=== PATIENT | female | born 1950 | race Caucasian/White ===

== ENCOUNTER 2022-12-16 14:01 | Observation (INO) ==
[2022-12-16] MEDS ORDERED: ACETAMINOPHEN 500 MG TAB PO STA (14:38)
[2022-12-16 15:17] LABS: Alanine Aminotransferase 14 U/L (7-52); Albumin Globulin Ratio 0.9 (0.9-2); Albumin Level 4.4 gm/dl (3.4-5.0); Alkaline Phosphatase 78 U/L (34-104); Anion Gap 10 (3-11); Aspartate Aminotransferase 20 U/L (13-39); Bilirubin,Total 1.3 mg/dl (0.2-1.0); Blood Urea Nitrogen 26 mg/dl (6-23); Carbon Dioxide 23 mmol/L (21-32); Chloride 99 mmol/L (98-107); Est GFR (African American) 44.5 ml/min; Est GFR (Non-African American) 38.4 ml/min; Globulin 4.7 gm/dl (2.5-4.0); Glucose 163 mg/dl (70-99(Fasting)); Potassium 3.7 mmol/L (3.5-5.1); Sodium 132 mmol/L (136-145); Total Protein 9.1 gm/dl (6.0-8.3)
--- NOTE | 2022-12-16 15:40 | Electrocardiogram Report ---
Test Reason : Blood Pressure : / mmHG Vent. Rate : 124 BPM Atrial Rate : 124 BPM P-R Int : 178 ms QRS Dur : 074 ms QT Int : 286 ms P-R-T Axes : 084 066 052 degrees QTc Int : 410 ms Sinus tachycardia Possible Left atrial enlargement Borderline ECG No previous ECGs available Confirmed by Alber Nieto ([id number]) on 12/16/2022 3:40:20 PM Referred By: Confirmed By:Alber Nieto
--- NOTE | 2022-12-16 15:55 | XRay Report ---
XR chest 1V not portable HISTORY: 72 years-old Female SOB acute shortness of breath COMPARISON: None TECHNIQUE: PA view of the chest FINDINGS: Left axillary surgical clips. Cardiac silhouette is normal in size. Mild nonspecific interstitial coa rsening with hazy ill-defined bibasilar densities. No pneumothorax, pleural effusion or overt pulmona ry edema. Mild sigmoid thoracolumbar scoliosis. Bones appear grossly intact. IMPRESSION: Interstitial coarsening with mild hazy ill-defined bibasilar densities. Correlate clinica lly to exclude a mild pneumonitis. ACT 112: Negative or not required by law. The above report was generated using voice recognition software. It may contain grammatical, syntax o r spelling errors. Electronically signed by: Maik Bess M.D. 12/16/2022 3:53 PM
[2022-12-16 15:56] LABS: Basophils # (auto) 0.05 K/uL (0.00-0.20); Basophils % (auto) 0.3 %; Eosinophils # (auto) 0.01 K/uL (0.00-0.50); Eosinophils % (auto) 0.1 %; Hematocrit (blood only) 38.6 % (37.0-47.0); Hemoglobin 13.1 g/dl (12.0-16.0); Immature Granulocytes # (auto) 0.05 K/uL (0.01-0.20); Immature Granulocytes % (auto) 0.3 %; Lymphocytes # (auto) 0.96 K/uL (1.20-3.40); Lymphocytes % (auto) 6.5 %; Mean Corpuscular Hemoglobin 31.8 pg (25.0-34.0); Mean Corpuscular Hgb Conc 33.9 g/dL (32.0-36.0); Mean Corpuscular Volume 93.7 fL (80.0-100.0); Mean Platelet Volume 9.2 fL (9.4-12.4); Monocytes # (auto) 0.69 K/uL (0.11-0.59); Monocytes % (auto) 4.7 %; Neutrophils # (auto) 12.92 K/uL (1.40-6.50); Neutrophils % (auto) 88.1 %; Platelet Count 321 K/uL (130-400); RDW Standard Deviation 44.6 fL (36.4-46.3); Red Blood Count 4.12 M/uL (4.20-5.40); White Blood Count 14.68 K/ul (4.8-10.8)
[2022-12-16 17:37] LABS: Adenovirus PCR Not Detected (NotDetected); Bordetella parapertussis PCR Not Detected (NotDetected); Bordetella pertussis PCR Not Detected (NotDetected); Chlamydia pneumoniae PCR Not Detected (NotDetected); Coronavirus 229E PCR Not Detected (NotDetected); Coronavirus CoV-2 (COVID19)PCR Not Detected (NotDetected); Coronavirus HKU1 PCR Not Detected (NotDetected); Coronavirus NL63 PCR Not Detected (NotDetected); Coronavirus OC43PCR Not Detected (NotDetected); Human Metapneumovirus PCR Not Detected (NotDetected); Influenza A PCR Not Detected (NotDetected); Influenza B PCR Not Detected (NotDetected); Mycoplasma pneumoniae PCR Not Detected (NotDetected); Parainfluenza Virus 1 PCR Not Detected (NotDetected); Parainfluenza Virus 2 PCR Not Detected (NotDetected); Parainfluenza Virus 3 PCR Not Detected (NotDetected); Respiratory Syncytial VirusPCR Not Detected (NotDetected); Rhinovirus/Enterovirus PCR Not Detected (NotDetected)
[2022-12-16] MEDS ORDERED: AZITHROMYCIN 500 MG in DEXTROSE 5% 250 ML IV ONE (17:44)
[2022-12-16] MEDS ORDERED: methylPREDNISolone 125 MG/2 ML VIAL IV STA (17:44)
[2022-12-16] MEDS ORDERED: cefTRIAXone SODIUM 2,000 MG/50 ML BAG IV STA (17:44)
[2022-12-16] MEDS ORDERED: SODIUM CHLORIDE 0.65% NA SOLN 45 ML (OCEAN) ONE (17:44)
[2022-12-16] MEDS ORDERED: SODIUM CHLORIDE 0.9% 2,000 ML IV ONE (17:44)
[2022-12-16] MEDS ORDERED: guaiFENesin 600 MG TABCR PO STA (17:44)
[2022-12-16] MEDS ORDERED: ALBUTEROL HFA 8 GM INHALER INH ONE (17:47)
[2022-12-16 18:05] LABS: Parainfluenza Virus 4 PCR DETECTED (NotDetected)
--- NOTE | 2022-12-16 18:21 | Emergency Department Note ---
Impression & Plan Pneumonia, Infection due to parainfluenza virus 4, SIRS (systemic inflammatory response syndrome) ED Provider Note NAME: CARLA LOU AGE: 72 SEX: F ARRIVES VIA: Walk-In INFORMANT: Patient ED PROVIDER(S): Aries Pichardo MD CHIEF COMPLAINT: Fever, shortness of breath, referred. PLAN: Disposition: Admit MEDICAL DECISION MAKING: The patient is a pleasant 72-year-old woman who presents emergency department via walk-in, company by her for evaluation of continued upper respiratory congestion and chest congestion over the past 2 weeks where she felt symptoms worsening with frequent "hot flashes" where she was seen in urgent care today found to be febrile and have low oxygen in the low 90s and was referred to the emergency department. She reports she had a negative home COVID-19 test today and also a second negative COVID-19 test at urgent care. She reports she has been unable to bring up any sputum. She denies any headache or sinus pressu re. She denies vomiting or diarrhea but does report having decreased appetite and loss of taste. On my evaluation the patient is uncomfortable, febrile 38.1, heart in the 130s and vital signs otherwise stable. O2 saturations in the mid 90s on room air. She appears clinically dry. She has scattered wheezes bilateral lung doe with normal respiratory effort. Abdomen is nontender. EKG without overt acute ischemia. Chest x-ray demonstrates faint bibasilar opacities suspicious for pneumonia given the clinical context. WBC 4.6 with neutrophil predominance though no left shift. Mild lymphopenia at 0.96 is present. H/H and platelets within normal limits. Chemistry without metabolic acidosis. Creatinine is mildly elevated at 1.3 with BUN elevated 26. LFTs without significant abnormality. Respiratory viral panel was performed and was positive for parainfluenza 4. However, given patient's leukocytosis and 2 weeks of symptoms that have been worsening suspicion for possible bacterial coinfection. Empiric treatment for pneumonia ordered with ceftriaxone and azithromycin at this time. 30cc/kg of IVF provided. Curb 65 moderate risk. Given the patient's worsening symptoms with poor oral intake she agrees with plan for admission for further management. Case was discussed with Dr. Antonio, [facility] hospitalist, who will evaluate the patient for admission. Triage Nursing notes reviewed and agree them. Prior/outside medical records reviewed Vital Signs: reviewed Differential diagnosis: Viral syndrome, otitis, pharyngitis, pneumonia, influenza, meningitis, urinary tract infection, sepsis, bacteremia, as well as other pathologies. ER treatment provided: See below. Diagnostics interpreted by me: ECG: Sinus tachycardia, 124 bpm, no ectopy, no overt ST impression or depression, QTC 410, QRS 74. Cardiac Monitoring: An order for continuous cardiac monitoring was placed and demonstrated Sinus tachycardia, 124 bpm, no ectopy. Laboratory studies: See below Imaging studies: See below Consultation(s): Dr. Antonio [facility] hospitalist HPI: The patient is a pleasant 72-year-old woman who presents emergency department via walk-in, company by her for evaluation of continued upper respiratory congestion and chest congestion over the past 2 weeks where she felt symptoms worsening with frequent "hot flashes" where she was seen in urgent care today found to be febrile and have low oxygen in the low 90s and was referred to the emergency department. She reports she had a negative home COVID-19 test today and also a second negative COVID-19 test at urgent care. She reports she has been unable to bring up any sputum. She denies any headache or sinus pressure. She denies vomiting or diarrhea but does report having decreased appetite and loss of taste. ROS: See above HPI for pertinent positives & negatives. A total of 10 systems reviewed and were otherwise negative. VITALS:See Below PHYSICAL EXAMINATION: GENERAL: Awake, alert, fatigued/uncomfortable-appearing, in no distress HENT: Normocephalic, atraumatic. Oropharynx with dry mucous membranes and otherwise unremarkable. EYES: Normal conjunctiva. Sclera non-icteric. NECK: Supple. No nuchal rigidity. FROM. No JVD. RESPIRATORY: Scattered wheeze of bilateral lung doe. CARDIAC: Tachycardic rate, normal rhythm. Extremities warm and well perfused. Pulses equal. ABDOMEN: Soft, non-distended. No tenderness to palpation. No rebound or guarding. No masses. RECTAL: Deferred. MUSCULOSKELETAL: Chest examination reveals no tenderness. The back is s ymmetrical on inspection without obvious abnormality. There is no CVA tenderness to palpation. No joint edema. LOWER EXTREMITIES: Calves are equal size bilaterally and non-tender. No edema. No discoloration. NEURO: Normal sensorium. No sensory or motor deficits noted. SKIN: No rash or jaundice noted. Aries Pichardo MD Past Med/Surg History Medical History Breast cancer CKD (chronic kidney disease) stage 3, GFR 30-59 ml/min HLD (hyperlipidemia) Hypertension Postablative hypothyroidism (Unknown) Surgical History H/O lumpectomy Family History Other Asthma Cancer Heart disease Social History Smoking Status: Never smoker Hx Alcohol Use: Yes Hx Substance Use: No Preferred Language: Citizen Of [place] Communication Ability: Effective Manager Fixed Income Required: No Beliefs That Will Affect Care: None Current Living Situation: Spouse Feels Safe at Home: Yes Safety Concerns: Feels Safe At This Time Assistive Devices: None Allergies Allergies Allergy/AdvReac Type Severity Reaction Status Date / Time Psvaqfv-YJP-YlR Reductase Allergy Unknown legs achy Verified 12/16/22 18:46 Inhibitor 1st Covid shot Allergy arm got Uncoded 12/16/22 18:50 hives/itchy for 10 days Steroid shot Allergy Flushed & Uncoded 12/16/22 18:50 hot flushes Home Meds Home Medications Medication Instructions Recorded Confirmed ezetimibe 10 mg tablet 10 mg PO DAILY 12/16/22 12/16/22 levothyroxine 75 mcg tablet 75 mcg PO QAM 12/16/22 12/16/22 (Synthroid) losartan 100 mg tablet 100 mg PO QAM 12/16/22 12/16/22 [id number]-swuwrmlb-rbplzr 1 tab PO DAILY 12/16/22 12/16/22 tablet (Multivitamin 50 Plus tablet) Results & Data (ED) Vital Signs Vital Signs - 24 hr 12/16/22 14:06 12/16/22 16:50 12/16/22 18:06 Temperature 38.1 C H Temperature Source Temporal Artery Scan Pulse Rate 131 H 104 H Pulse Rate [Apical] 89 Pulse Rate from SpO2 Sensor Pulse Rhythm [Apical] Regular Pulse Strength [Apical] Normal Respiratory Rate 20 20 Respiratory Effort / Characteristics Spontaneous Short of Breath Non-Labored Spontaneous Respiratory Depth Normal Normal Respiratory Pattern Regular Blood Pressure 145/77 H Blood Pressure [Left Arm] 129/68 Blood Pressure Mean 99 Blood Pressure Mean [Left Arm] 88 Blood Pressure Position [Left Arm] Sitting Pulse Oximetry 93 95 Oxygen Delivery Method Room Air Room Air Sepsis Recent Fever Within 48 Hours No Sepsis New/Unexplained Change in Mental Status N/A Sepsis Action Taken by Nursing No Action Required 12/16/22 19:13 Temperature Temperature Source Pulse Rate Pulse Rate [Apical] Pulse Rate from SpO2 Sensor 103 H Pulse Rhythm [Apical] Pulse Strength [Apical] Respiratory Rate Respiratory Effort / Characteristics Respiratory Depth Respiratory Pattern Blood Pressure Blood Pressure [Left Arm] Blood Pressure Mean Blood Pressure Mean [Left Arm] Blood Pressure Position [Left Arm] Pulse Oximetry 95 Oxygen Delivery Method Sepsis Recent Fever Within 48 Hours Sepsis New/Unexplained Change in Mental Status Sepsis Action Taken by Nursing Laboratory Data Attestation: I reviewed the patient's lab results. 12/16/22 14:39 12/16/22 14:39 Lab Results 12/16/22 12/16/22 12/16/22 Range/Units 14:39 14:39 14:39 WBC 14.68 H (4.8-10.8) K/ul RBC 4.12 L (4.20-5.40) M/uL Hgb 13.1 (12.0-16.0) g/dl Hct 38.6 (37.0-47.0) % MCV 93.7 (80.0-100.0) fL MCH 31.8 (25.0-34.0) pg MCHC 33.9 (32.0-36.0) g/dL RDW Std Deviation 44.6 (36.4-46.3) fL RDW Coeff of Lacie 13.0 (11.5-14.5) % Plt Count 321 (130-400) K/uL MPV 9.2 L (9.4-12.4) fL Immature Gran % (Auto) 0.3 % Neut % (Auto) 88.1 % Lymph % (Auto) 6.5 % [place] % (Auto) 4.7 % Eos % (Auto) 0.1 % Baso % (Auto) 0.3 % Neut # (Auto) 12.92 H (1.40-6.50) K/uL Lymph # (Auto) 0.96 L (1.20-3.40) K/uL [place] # (Auto) 0.69 H (0.11-0.59) K/uL Eos # (Auto) 0.01 (0.00-0.50) K/uL Baso # (Auto) 0.05 (0.00-0.20) K/uL Immature Gran # (Auto) 0.05 (0.01-0.20) K/uL PT Cancelled INR Cancelled APTT Cancelled PTT Ratio Cancelled Sodium 132 L (136-145) mmol/L Potassium 3.7 (3.5-5.1) mmol/L Chloride 99 (98-107) mmol/L Carbon Dioxide 23 (21-32) mmol/L Anion Gap 10 (3-11) BUN 26 H (6-23) mg/dl Creatinine 1.37 H (0.6-1.2) mg/dl Est GFR ( Amer) 44.5 ml/min Est GFR (Non-Af Amer) 38.4 ml/min BUN/Creatinine Ratio 19.0 (10-20) Glucose 163 H (70-99(Fasting)) mg/dl Lactate (0.4-2.0) mmol/L Calcium 10.0 (8.6-10.3) mg/dl Total Bilirubin 1.3 H (0.2-1.0) mg/dl AST 20 (13-39) U/L ALT 14 (7-52) U/L Alkaline Phosphatase 78 (34-104) U/L Total Protein 9.1 H (6.0-8.3) gm/dl Albumin 4.4 (3.4-5.0) gm/dl Globulin 4.7 H (2.5-4.0) gm/dl Albumin/Globulin Ratio 0.9 (0.9-2) Procalcitonin (0-0.5) ng/ml 12/16/22 12/16/22 12/16/22 Range/Units 14:40 18:50 18:50 WBC (4.8-10.8) K/ul RBC (4.20-5.40) M/uL Hgb (12.0-16.0) g/dl Hct (37.0-47.0) % MCV (80.0-100.0) fL MCH (25.0-34.0) pg MCHC (32.0-36.0) g/dL RDW Std Deviation (36.4-46.3) fL RDW Coeff of Lacie (11.5-14.5) % Plt Count (130-400) K/uL MPV (9.4-12.4) fL Immature Gran % (Auto) % Neut % (Auto) % Lymph % (Auto) % [place] % (Auto) % Eos % (Auto) % Baso % (Auto) % Neut # (Auto) (1.40-6.50) K/uL Lymph # (Auto) (1.20-3.40) K/uL [place] # (Auto) (0.11-0.59) K/uL Eos # (Auto) (0.00-0.50) K/uL Baso # (Auto) (0.00-0.20) K/uL Immature Gran # (Auto) (0.01-0.20) K/uL PT 12.6 H INR 1.2 H APTT 28.4 PTT Ratio 1.0 Sodium (136-145) mmol/L Potassium (3.5-5.1) mmol/L Chloride (98-107) mmol/L Carbon Dioxide (21-32) mmol/L Anion Gap (3-11) BUN (6-23) mg/dl Creatinine (0.6-1.2) mg/dl Est GFR ( Amer) ml/min Est GFR (Non-Af Amer) ml/min BUN/Creatinine Ratio (10-20) Glucose (70-99(Fasting)) mg/dl Lactate 1.5 (0.4-2.0) mmol/L Calcium (8.6-10.3) mg/dl Total Bilirubin (0.2-1.0) mg/dl AST (13-39) U/L ALT (7-52) U/L Alkaline Phosphatase (34-104) U/L Total Protein (6.0-8.3) gm/dl Albumin (3.4-5.0) gm/dl Globulin (2.5-4.0) gm/dl Albumin/Globulin Ratio (0.9-2) Procalcitonin 0.22 (0-0.5) ng/ml Administered Medications Heparin Sodium (Porcine) (Heparin Sod 5,000 Unit/0.5 Ml Vial) 5,000 units SQ Q8 MOHAN Stop: 01/15/23 21:59 Last Admin: 12/16/22 23:32 Dose: 5,000 units Documented By: MOHSEN Discontinued Medications Acetaminophen (Acetaminophen 500 Mg Tab) 1,000 mg PO NOW STA Stop: 12/16/22 14:39 Last Admin: 12/16/22 14:44 Dose: 1,000 mg Documented By: MICHEL Albuterol (Albuterol Hfa 8 Gm Inhaler) 2 puffs INH NOW ONE Stop: 12/16/22 17:48 Last Admin: 12/16/22 18:24 Dose: 2 puffs Documented By: MIKHAIL Guaifenesin (Guaifenesin 600 Mg Tabcr) 1,200 mg PO NOW STA Stop: 12/16/22 17:45 Last Admin: 12/16/22 18:24 Dose: 1,200 mg Documented By: MIKHAIL Guaifenesin/Dextromethorphan (Guaifenesin/Dextrom Syrup 200mg/20mg 10ml Udc) 10 ml PO NOW STA Stop: 12/16/22 19:23 Last Admin: 12/16/22 20:31 Dose: 10 ml Documented By: MICHEL Sodium Chloride (Nss) 2,000 mls @ 999 mls/hr IV .Q2H1M ONE Stop: 12/16/22 19:44 Last Infusion: 12/16/22 21:06 Dose: 0 mls/hr Documented By: Admin: 12/16/22 18:23 Dose: 999 mls/hr Documented By: MIKHAIL Ceftriaxone Sodium (Rocephin) 2,000 mg in 50 mls @ 100 mls/hr IV NOW STA Stop: 12/16/22 18:13 Last Infusion: 12/16/22 21:06 Dose: 0 mls/hr Documented By: Admin: 12/16/22 18:23 Dose: 100 mls/hr Documented By: MIKHAIL Azithromycin 500 mg/ Dextrose 255 mls @ 125 mls/hr IV ONE ONE Stop: 12/16/22 19:46 Last Infusion: 12/16/22 21:06 Dose: 0 mls/hr Documented By: Admin: 12/16/22 18:23 Dose: 125 mls/hr Documented By: MIKHAIL Methylprednisolone (Methylprednisolone 125 Mg/2 Ml Vial) 125 mg IV NOW STA Stop: 12/16/22 17:45 Last Admin: 10/12/23 18:24 Dose: 125 mg Documented By: MIKHAIL Sodium Chloride (Sodium Chloride 0.65% Na Soln 45 Ml ([place])) 2 sprays NA NOW ONE Stop: 12/16/22 17:45 Last Admin: 12/16/22 18:24 Dose: 2 sprays Documented By: MIKHAIL Imaging Data Radiologist's Impression: Chest X-Ray 12/16/22 14:14 XR chest 1V not portable HISTORY: 72 years-old Female SOB acute shortness of breath COMPARISON: None TECHNIQUE: PA view of the chest FINDINGS: Left axillary surgical clips. Cardiac silhouette is normal in size. Mild nonspecific interstitial coarsening with hazy ill-defined bibasilar densities. No pneumothorax, pleural effusion or overt pulmonary edema. Mild sigmoid thoracolumbar scoliosis. Bones appear grossly intact. IMPRESSION: Interstitial coarsening with mild hazy ill-defined bibasilar densities. Correlate clinically to exclude a mild pneumonitis. ACT 112: Negative or not required by law. The above report was generated using voice recognition software. It may contain grammatical, syntax or spelling errors. Electronically signed by: Maik Bess M.D. 12/16/2022 3:53 PM Discharge Plan Visit Data Chief Complaint: Illness Stated Complaint: DOC REF, LOW 02, DEHYDRATION ED Provider: Aries Pichardo Discharge Problem: Pneumonia, Infection due to parainfluenza virus 4, SIRS (systemic inflammatory response syndrome) Patient Disposition: Admitted As Inpatient Discharge Instructions Interventions: ED Discharge Assessment Last Done: 12/16/22 22:00
--- NOTE | 2022-12-16 18:30 | History & Physical Report ---
Date of Service December 16, 2022 Assessment & Plan (1) Sepsis: (2) Infection due to parainfluenza virus 4: (3) Pneumonia: (4) Postablative hypothyroidism: (5) Hypertension: (6) CKD (chronic kidney disease) stage 3, GFR 30-59 ml/min: (7) HLD (hyperlipidemia): Plan Ms. Jimenez is a 72 y/o female with HTN, HLD, Sjogren's syndrome, CKD III, prior breast cancer, melanoma, hypothyroidism who is admitted due to sepsis secondary to parainfluenza virus with concern for superimposed bacterial pneumonia. #Sepsis secondary to Parainfuenzae and ?superimposed bacterial pneumonia -Meets sepsis criteria based upon WBC, HR, RR, Temp and confirmed infection -Supportive treatment with IVF, Robitussin, Tylenol prn -Coverage for CAP with CTX and Azithro -Blood cultures pending, sputum culture ordered -Flutter valve #Hyponatremia Potentially related to poor po intake, given elevated BUN and recent illness Trend BMP in am after 2L bolus #Post-albative Hypothyroidism #Sjogren's disease -Continue Levothyroxine -Biotene and artificial tears prn #HTN -Continue home Losartan #CKDIII Borderline LUISANA, baseline 0.9-1.1 Trend BMP s/p 2L IVF in ED #HLD -continue zetia Bowel prn GI prn Lytes prn DVT heparin sq Dispo med/surg for management of pneumonia I spent a total of 60 minutes coordinating, documenting, and providing care for this patient excluding time spent in the performance of separately billed services. History of Present Illness Chief Complaint: SOB, Sinus Congestion Primary Care Provider: Radha Chaudhry MD Ms. Jimenez is a 72 y/o female with HTN, HLD, Sjogren's syndrome, CKD III, prior breast cancer, melanoma, hypothyroidism who is admitted due to sepsis secondary to parainfluenza virus with concern for superimposed bacterial pneumonia. Patient states she felt like she was mildly sick for about two weeks, but over 4-5 days noted it progressively worsened. She endorses subjective fevers with notable sputum production over the last week. Patient denies any other concerns like bowel changes, urinary changes, nausea, or vomiting. In the ED, patient was normotensive, with temp to 38.1 and sinus tachycardia to 100s.Saturating well on room air. Labs with leukocytosis to 14 and +parainfluenza, as well as ?procal of 0.22. CXR with increased interstitial markings. Started on CTX and azithro. s/p 2L NS Patient to be admitted for severe pneumonia and close monitoring. Allergies Allergy/AdvReac Type Severity Reaction Status Date / Time Eyvhynx-EOY-NyL Reductase Allergy Unknown legs achy Verified 12/16/22 18:46 Inhibitor 1st Covid shot Allergy arm got Uncoded 12/16/22 18:50 hives/itchy for 10 days Steroid shot Allergy Flushed & Uncoded 12/16/22 18:50 hot flushes Home Medications Medication Instructions Recorded Confirmed Type ezetimibe 10 mg tablet 10 mg PO DAILY 12/16/22 12/16/22 History levothyroxine 75 mcg tablet 75 mcg PO QAM 12/16/22 12/16/22 History (Synthroid) losartan 100 mg tablet 100 mg PO QAM 12/16/22 12/16/22 History vjpvlggglmjk-gyfukyis-nufsta 1 tab PO DAILY 12/16/22 12/16/22 History tablet (Multivitamin 50 Plus tablet) Past Med/Surg History Medical History (Updated 12/16/22 @ 20:00 by Vida Antonio MD) Breast cancer CKD (chronic kidney disease) stage 3, GFR 30-59 ml/min HLD (hyperlipidemia) Hypertension Postablative hypothyroidism (Unknown) Surgical History (Updated 12/16/22 @ 19:54 by Vida Antonio MD) H/O lumpectomy Family History (Updated 12/16/22 @ 19:55 by Vida Antonio MD) Other Asthma Cancer Heart disease Social History Smoking Status: Never smoker Preferred Language: Romanian Feels Safe at Home: Yes Review of Systems Review of Systems: All systems reviewed & are unremarkable except as noted in Subjective Physical Exam Eyes: left exotropic eye ENMT: sinus congestion Respiratory: crackles, wheezing Cardiovascular: tachycardia Gastrointestinal (Abdomen): soft NTND Results & Data Results & Data Vital Signs (Past 12 Hours) Vital Signs Temp Pulse Pulse Resp BP BP Pulse Ox 12/16/22 18:06 104 H 12/16/22 16:50 89 20 129/68 95 12/16/22 14:06 38.1 C H 131 H 20 145/77 H 93 O2 Del Method 12/16/22 18:06 12/16/22 16:50 Room Air 12/16/22 14:06 Room Air Laboratory Results Short CBC 12/16/22 Range/Units 14:39 WBC 14.68 H (4.8-10.8) K/ul Hgb 13.1 (12.0-16.0) g/dl Hct 38.6 (37.0-47.0) % Plt Count 321 (130-400) K/uL BMP 12/16/22 14:39 Sodium 132 L Potassium 3.7 Chloride 99 Carbon Dioxide 23 BUN 26 H Creatinine 1.37 H Glucose 163 H Calcium 10.0 Liver Function 12/16/22 Range/Units 14:39 Total Bilirubin 1.3 H (0.2-1.0) mg/dl AST 20 (13-39) U/L ALT 14 (7-52) U/L Alkaline Phosphatase 78 (34-104) U/L Albumin 4.4 (3.4-5.0) gm/dl Diagnostic Findings CXR reveiwed with coarse interstital markings, no clear consolidations Medications Administered Home Medications Medication Instructions Recorded Confirmed Last Taken ezetimibe 10 mg tablet 10 mg PO DAILY 12/16/22 12/16/22 12/16/22 09:00 levothyroxine 75 mcg tablet 75 mcg PO QAM 12/16/22 12/16/22 12/16/22 07:30 (Synthroid) losartan 100 mg tablet 100 mg PO QAM 12/16/22 12/16/22 12/16/22 09:00 sytjtpubcskq-unskhtox-ltntxn 1 tab PO DAILY 12/16/22 12/16/22 Unknown tablet (Multivitamin 50 Plus tablet) Active Medications Generic Name Dose Route Start Last Admin Trade Name Janine PRN Reason Stop Dose Admin Sodium Chloride 2,000 mls @ 999 mls/hr 12/16/22 17:44 12/16/22 18:23 Nss IV 12/16/22 19:44 999 mls/hr .Q2H1M ONE Administration Azithromycin 500 mg/ Dextrose 255 mls @ 125 mls/hr 12/16/22 17:44 12/16/22 18:23 IV 12/16/22 19:46 125 mls/hr ONE ONE Administration
[2022-12-16] MEDS ORDERED: guaiFENesin/DEXTROM SYRUP 200MG/20MG 10ML UDC PO STA (19:22)
[2022-12-16] MEDS ORDERED: guaiFENesin/DEXTROM SYRUP 200MG/20MG 10ML UDC PO PRN (19:22)
[2022-12-16 19:37] LABS: INR 1.2 (0.9-1.1); Partial Thromboplastin Time 28.4 Seconds (21.0-31.0); Prothrombin Time 12.6 Seconds (9.0-12.0)
[2022-12-16] MEDS ORDERED: ARTIFICIAL TEARS OPB PRN (19:43)
[2022-12-16 20:07] LABS: Appearance Urine Cloudy (Clear); Bacteria Urine Automated 2+ (Negative); Bilirubin Urine Negative (Negative); Blood Urine Trace (Negative); Color Urine Yellow; Epithelial Cell Urine Auto >30 /lpf (0-5); Glucose Urine UA Negative (Negative); Ketones Urine Negative (Negative); Leukocyte Esterase Urine 2+ (Negative); Nitrite Urine Positive (Negative); Protein Urine 1+ (Negative); RBC Urine Automated 0-4 /hpf (0-4); Specific Gravity Urine 1.009 (1.000-1.030); Urobilinogen Urine Negative (Negative); WBC Urine Automated >30 /hpf (0-5); pH Urine 5.5 (4.5-7.5)
[2022-12-16] MEDS ORDERED: ACETAMINOPHEN 325 MG TAB PO PRN (21:12)
[2022-12-16] MEDS: HEPARIN SOD 5,000 UNIT/0.5 ML VIAL SQ SCH (23:32)
[2022-12-17] MEDS: HEPARIN SOD 5,000 UNIT/0.5 ML VIAL SQ SCH ×2 (05:41→13:50)
[2022-12-17] MEDS ORDERED: LEVOTHYROXINE SODIUM 75 MCG TABLET PO SCH (06:30)
[2022-12-17] MEDS ORDERED: CEROVITE ADV FORMULA TAB PO SCH (09:00)
[2022-12-17] MEDS ORDERED: LOSARTAN POTASSIUM 50 MG TAB PO SCH (09:00)
[2022-12-17] MEDS ORDERED: EZETIMIBE 10 MG TAB PO SCH (09:00)
[2022-12-17 09:02] LABS: Hematocrit (blood only) 33.5 % (37.0-47.0); Hemoglobin 11.2 g/dl (12.0-16.0); Mean Corpuscular Hemoglobin 30.9 pg (25.0-34.0); Mean Corpuscular Hgb Conc 33.4 g/dL (32.0-36.0); Mean Corpuscular Volume 92.5 fL (80.0-100.0); Mean Platelet Volume 9.6 fL (9.4-12.4); Platelet Count 290 K/uL (130-400); RDW Standard Deviation 43.8 fL (36.4-46.3); Red Blood Count 3.62 M/uL (4.20-5.40); White Blood Count 11.09 K/ul (4.8-10.8)
[2022-12-17 09:43] LABS: BUN Creatinine Ratio 21.2 (10-20); Calcium 9.2 mg/dl (8.6-10.3); Creatinine Clr Calc Pharmacy 41.8 ml/min; Est GFR (Non-African American) 56.9 ml/min; Magnesium 1.8 mg/dl (1.7-2.4); Phosphorus 2.9 mg/dl (2.5-4.9); Potassium 3.9 mmol/L (3.5-5.1)
[2022-12-17] MEDS ORDERED: AZITHROMYCIN 250 MG TAB PO SCH (12:00)
--- NOTE | 2022-12-17 14:19 | Discharge Summary ---
Date of Service December 17, 2022 Admission HPI Per Admitting Provider Ms. Jimenez is a 72 y/o female with HTN, HLD, Sjogren's syndrome, CKD III, prior breast cancer, melanoma, hypothyroidism who is admitted due to sepsis secondary to parainfluenza virus with concern for superimposed bacterial pneumonia. Patient states she felt like she was mildly sick for about two weeks, but over 4-5 days noted it progressively worsened. She endorses subjective fevers with notable sputum production over the last week. Patient denies any other concerns like bowel changes, urinary changes, nausea, or vomiting. In the ED, patient was normotensive, with temp to 38.1 and sinus tachycardia to 100s.Saturating well on room air. Labs with leukocytosis to 14 and +parainfluenza, as well as ?procal of 0.22. CXR with increased interstitial markings. Started on CTX and azithro. s/p 2L NS Patient to be admitted for severe pneumonia and close monitoring. Admission Exam Per Admitting Provider Eyes: left exotropic eye ENMT: sinus congestion Respiratory: crackles, wheezing Cardiovascular: tachycardia Gastrointestinal (Abdomen): soft NTND Principal Diagnosis Parainfluenza infection Pneumonia Discharge Exam Constitutional: WD/WN, vitals as above, NAD, sitting up in bed, pleasant, conversing easily Respiratory: normal respiratory effort, lungs clear to auscultation, no wheeze, rales, rhonchi. Normal insp/exp effort, no accessory muscle use Cardiovascular: RRR, no murmur, no edema Vessels: no JVD or carotid bruit Chest: normal inspection of chest Abdomen: normal bowel sounds, soft, nontender, no hepatosplenomegaly Musculoskeletal: no cyanosis or clubbing, extremities motor strength 5/5 Skin: no rashes, warm and dry normal turgor Neurologic: PERRL, EOMI, accommodation nl, no face palsy, no dysarthria CN's II- XI intact bilaterally and moves all extremities Psychiatric: A+Ox3, euthymic affect Discharge Data Allergies Allergy/AdvReac Type Severity Reaction Status Date / Time Mukqjzp-NDI-GeL Reductase Allergy Unknown legs achy Verified 12/16/22 18:46 Inhibitor 1st Covid shot Allergy arm got Uncoded 12/16/22 18:50 hives/itchy for 10 days Steroid shot Allergy Flushed & Uncoded 12/16/22 18:50 hot flushes Consultations 12/16/22 18:21 ED Decision to Admit Stat Hospital Course (1) Sepsis: (2) Infection due to parainfluenza virus 4: (3) Pneumonia: (4) Postablative hypothyroidism: (5) Hypertension: (6) CKD (chronic kidney disease) stage 3, GFR 30-59 ml/min: (7) HLD (hyperlipidemia): Plan Ms. Jimenez is a 72 y/o female with HTN, HLD, Sjogren's syndrome, CKD III, prior breast cancer, melanoma, hypothyroidism who is admitted due to sepsis secondary to parainfluenza virus with concern for superimposed bacterial pneumonia. On presentation, patient was found to have elevated WBC count, febrile to Tmax of 38.1 C. Chest x-ray suggestive of bibasilar infiltrates Patient was started on ceftriaxone and azithromycin; admitted to medical floor for further management. Patient reported improvement in the symptoms during the hospitalization. She remained in room air. She was discharged home on cefdinir for 5 days and azithromycin for 4 more days. Patient to follow-up with PCP after discharge. Please note the above document was generated using voice recognition software. It may contain grammatical, syntax or spelling errors. Any formal questions or concerns about the content, text or information contained within the body of this dictation should be directly addressed to the provider for clarification Total Time Total Time Spent Total Time Spent (In Minutes): 45 Total Time Includes: Examination of the Patient, Discharge Planning, Medication Reconciliation, Communication With Other Providers and Other Discharge Plan Discharge Items Patient Disposition: Home - Self-Care Reason For Visit: PNEUMONIA Discharge Diagnosis: Parainfluenza infection Pneumonia Activity: Resume your previous activity Non-emergency contact: Primary Care Provider Call non-emergency contact if: you have any medication questions Follow-up/Referrals: Rdaha Chaudhry MD [Primary Care Provider] - Diet: Regular Addtl Attending Provider Instructions: You were admitted to the hospital due to parainfluenza virus infection. It is a common virus which can cause upper respiratory tract illness and also result in superimposed bacterial pneumonia. Chest x-ray was done during the hospitalization which showed infiltrate suggestive of mild pneumonia. You were treated with IV antibiotics during the hospitalization. You are prescribed following antibiotics at discharge to complete the antibiotic course: 1) Cefdinir 300 mg twice a day for 5 days 2) Azithromycin 250 mg for 4 days You were also prescribed cough syrup to help with your symptoms An appointment will be set up with your primary care doctor for sometime next week. Pending Studies at Discharge: No Stand-Alone Forms: My [facility], Smoking Cessation Medications and DC Order Prescriptions: New azithromycin 250 mg Tablet 250 mg PO QAM 4 Days Qty: 4 0RF Robitussin Cough-Chest Venkat DM 5-100 mg/5 mL Liquid 10 ml PO Q6H PRN (Reason: cough) Qty: 237 0RF cefdinir 300 mg capsule 300 mg PO BID 5 Days Qty: 10 0RF Continued levothyroxine [Synthroid] 75 mcg tablet 75 mcg PO QAM losartan 100 mg tablet 100 mg PO QAM ezetimibe 10 mg tablet 10 mg PO DAILY Multivitamin 50 Plus Tablet 1 tab PO DAILY Discharge Orders: Discharge Order (Routine); Ordered 12/17/22 Ordered By: Ajith Lugo Admission Data Admit Date/Time: 12/16/22 19:26 Attending Provider: Ajith Lugo Admit Provider: Vida Antonio Primary Care Provider: Radha Chaudhry Other Providers: Vida Antonio
[2022-12-17] MEDS ORDERED: cefTRIAXone SODIUM 2,000 MG in DEXTROSE 5 % MINI-B 50 ML IV SCH (18:00)
== END 2022-12-17 15:28 | disposition home or self-care (01) | DRG 871 ==
LOC: ED 14:01 → SUATTDRO 19:26 → EDINP 19:26 → INTOOBSV 19:26 → 3W 22:00

== ENCOUNTER 2024-01-09 13:57 | Observation (INO) ==
[2024-01-09 14:24] LABS: Basophils # (auto) 0.02 K/uL (0.00-0.20); Basophils % (auto) 0.3 %; Eosinophils # (auto) 0.01 K/uL (0.00-0.50); Eosinophils % (auto) 0.2 %; Hematocrit (blood only) 38.6 % (37.0-47.0); Hemoglobin 12.6 g/dl (12.0-16.0); Immature Granulocytes # (auto) 0.01 K/uL (0.01-0.20); Immature Granulocytes % (auto) 0.2 %; Lymphocytes # (auto) 1.03 K/uL (1.20-3.40); Lymphocytes % (auto) 17.5 %; Mean Corpuscular Hgb Conc 32.6 g/dL (32.0-36.0); Mean Corpuscular Volume 95.1 fL (80.0-100.0); Mean Platelet Volume 9.7 fL (9.4-12.4); Monocytes # (auto) 0.13 K/uL (0.11-0.59); Monocytes % (auto) 2.2 %; Neutrophils % (auto) 79.6 %; Platelet Count 199 K/uL (130-400); RDW Coefficient of Variation 14.4 % (11.5-14.5); RDW Standard Deviation 50.6 fL (36.4-46.3); Red Blood Count 4.06 M/uL (4.20-5.40)
[2024-01-09 14:42] LABS: Alanine Aminotransferase 32 U/L (7-52); Albumin Globulin Ratio 0.8 (0.9-2); Albumin Level 4.1 gm/dl (3.4-5.0); Alkaline Phosphatase 98 U/L (34-104); Anion Gap 9 (3-11); Aspartate Aminotransferase 139 U/L (13-39); BUN Creatinine Ratio 22.6 (10-20); Bilirubin,Total 1.5 mg/dl (0.2-1.0); Blood Urea Nitrogen 26 mg/dl (6-23); Calcium 9.8 mg/dl (8.6-10.3); Carbon Dioxide 24 mmol/L (21-32); Chloride 102 mmol/L (98-107); Glucose 155 mg/dl (70-99(Fasting)); Lipase 37 U/L (11-82); Sodium 135 mmol/L (136-145); Total Protein 9.1 gm/dl (6.0-8.3)
--- NOTE | 2024-01-09 14:54 | Emergency Department Note ---
Impression & Plan Abdominal pain, Elevated lactic acid level ED Provider Note HISTORY OF PRESENT ILLNESS: Patient is a 73-year-old female presenting with abdominal pain. Patient reports she developed sudden onset of lower quadrant abdominal pain at 11 AM today. Reports the pain is sharp and constant. Locates the pain around her umbilicus and states it radiates into the bilateral lower quadrants and around into her bilateral lower back. Denies any vomiting but does report she was nauseous. Denies any history of abdominal surgeries. Denies any chest pain or shortness of breath. Denies any measured fevers at home. She does report dysuria that started this morning but denies any hematuria. ROS: as above PHYSICAL EXAM: Constitutional: Patient appears in no acute distress. HENT: Head: Normocephalic and atraumatic. Eyes: EOMI, PERRL Mouth/Throat: Mucous membranes moist. Neck: Trachea midline. Neck supple. Cardiovascular: RRR, No murmurs, rubs or gallops. Intact distal pulses. Pulmonary/Chest: No respiratory distress. Breath sounds clear and equal bilaterally. No wheezes or rales. Abdominal: Abdomen soft, no tenderness, rebound or guarding. Generalized TTP Musculoskeletal: No edema, tenderness or deformity noted. Skin: Warm and dry. No rash, erythema, pallor or cyanosis Psychiatric: Appropriate mood and affect for situation. Neurological: Alert and keenly responsive. CN II-XII grossly intact, moving all extremities equally and fully. MDM: - Vitals signs showed hypertension and tachycardia. - History obtained via patient. History as above. - Chronic conditions affecting care: HTN; HLD; Sjogren's syndrome; CKD; prior breast cancer; hypothyroidism - Differential diagnoses include, but are not limited to: cholecystitis; appendicitis; diverticulitis; ischemic colitis; small bowel obstruction - Order placed for continuous cardiac monitoring. At this time, monitor showed rate of 83 bpm with normal sinus rhythm, per my interpretation. - External medical records reviewed. Discharge summary dated 12/17/2022 reviewed. Patient admitted at that time with pneumonia secondary to parainfluenza infection - Laboratory workup interpreted by myself showed normal WBC; stable electrolytes; elevated AST (139); elevated total bilirubin (1.5); normal lipase; elevated lactate (4.9) - Patient reports contrast dye allergy. Given 40 mg IV solumedrol and 50 mg IV benadryl as pretreatment. - CT abdomen/pelvis negative for bowel obstruction and showed a normal appendix. No wall thickening multiple. Small bowel with wall thickening and adjacent mesenteric concerning for possible gastroenteritis. Noted to have periportal edema and a small amount of fluid within the pelvis. Also noted to have a left adnexal cyst and a right lower lobe pulmonary nodule. - Patient given 1g IV tylenol and 1L NS. - Repeat lactate still elevated, but improved, to 3.2. Given 500 cc more of normal saline. - Discussed case with surgeon consumer studies professor, Dr. Pope, given CT imaging findings of thickening and mesenteric edema concerning for potential ischemic colitis. He came to evaluate the patient and recommended admission to medicine for trending of lactate and repeat assessment. Does not think patient has ischemic colitis, but recommends close monitoring. Patient feels improved after IV fluids. - Discussion was had with spring encaser about patient's case and need for admission - Hospitalist consulted for admission - [facility] ASSESSMENT AND PLAN: Diagnosis: abdominal pain; elevated lactic acid level Plan: admit Past Med/Surg History Problem List (Updated 01/09/24 @ 18:54 by Justina Verdugo MD) Elevated lactic acid level (Acute) Abdominal pain (Acute) Parkinson disease CKD (chronic kidney disease) stage 3, GFR 30-59 ml/min HLD (hyperlipidemia) Hypertension Medical History (Updated 01/09/24 @ 18:54 by Justina Verdugo MD) History of melanoma Osteoarthritis Sjogren syndrome History of Graves' disease SIRS (systemic inflammatory response syndrome) Breast cancer Postablative hypothyroidism (Unknown) Surgical History (Updated 01/09/24 @ 17:30 by Faith Gore PA-C) H/O melanoma excision Hx of blepharoplasty H/O lumpectomy Family History Other Asthma Cancer Heart disease Social History Smoking Status: Never smoker Hx Alcohol Use: Yes Hx Substance Use: No Preferred Language: Icelandic Communication Ability: Effective [employer]isher Required: No Beliefs That Will Affect Care: None Current Living Situation: Spouse Feels Safe at Home: Yes Assistive Devices: None Allergies Allergies Allergy/AdvReac Type Severity Reaction Status Date / Time Mxmvasg-ODR-EdI Reductase Allergy Unknown legs achy Verified 12/16/22 18:46 Inhibitor Iodinated Contrast Media AdvReac Mild Rash Verified 01/09/24 14:39 1st Covid shot Allergy arm got Uncoded 12/16/22 18:50 hives/itchy for 10 days Steroid shot Allergy Flushed & Uncoded 12/16/22 18:50 hot flushes Home Meds Home Medications Medication Instructions Recorded Confirmed ezetimibe 10 mg tablet 10 mg PO DAILY 12/16/22 01/09/24 levothyroxine 75 mcg tablet 75 mcg PO QAM 12/16/22 01/09/24 (Synthroid) losartan 100 mg tablet 100 mg PO QAM 12/16/22 01/09/24 kcyqlbvuaoto-asnydixv-uoidmb 1 tab PO DAILY 12/16/22 01/09/24 tablet (Multivitamin 50 Plus tablet) carbidopa 25 mg-levodopa 100 mg 1 tab PO TID 01/09/24 01/09/24 tablet Results & Data (ED) Vital Signs Vital Signs - 24 hr 01/09/24 14:00 01/09/24 14:26 01/09/24 14:29 Temperature 36.4 C L 36.4 C L Temperature Source Temporal Artery Scan Oral Pulse Rate 97 H 93 H Pulse Rate [Apical] 99 H Pulse Rhythm Regular Pulse Strength Normal Respiratory Rate 20 20 Respiratory Effort / Characteristics Non-Labored Spontaneous Respiratory Depth Normal Blood Pressure 153/82 H Blood Pressure [Left Arm] 113/95 Blood Pressure Mean 105 Blood Pressure Mean [Left Arm] 101 Blood Pressure Position Sitting Pulse Oximetry 98 95 Oxygen Delivery Method Room Air Room Air Sepsis Recent Fever Within 48 Hours No Sepsis New/Unexplained Change in Mental Status N/A Sepsis Action Taken by Nursing No Action Required 01/09/24 16:00 01/09/24 18:24 Temperature Temperature Source Pulse Rate 83 Pulse Rate [Apical] 89 Pulse Rhythm Pulse Strength Respiratory Rate 20 Respiratory Effort / Characteristics Non-Labored Spontaneous Respiratory Depth Normal Blood Pressure Blood Pressure [Left Arm] 129/73 Blood Pressure Mean Blood Pressure Mean [Left Arm] 91 Blood Pressure Position Pulse Oximetry 97 Oxygen Delivery Method Room Air Sepsis Recent Fever Within 48 Hours Sepsis New/Unexplained Change in Mental Status Sepsis Action Taken by Nursing Laboratory Data 01/09/24 14:10 01/09/24 14:10 Lab Results 01/09/24 01/09/2424 Range/Units 14:10 14:31 16:24 WBC 5.90 (4.8-10.8) K/ul RBC 4.06 L (4.20-5.40) M/uL Hgb 12.6 (12.0-16.0) g/dl Hct 38.6 (37.0-47.0) % MCV 95.1 (80.0-100.0) fL MCH 31.0 (25.0-34.0) pg MCHC 32.6 (32.0-36.0) g/dL RDW Std Deviation 50.6 H (36.4-46.3) fL RDW Coeff of Lacie 14.4 (11.5-14.5) % Plt Count 199 (130-400) K/uL MPV 9.7 (9.4-12.4) fL Immature Gran % (Auto) 0.2 % Neut % (Auto) 79.6 % Lymph % (Auto) 17.5 % Howard % (Auto) 2.2 % Eos % (Auto) 0.2 % Baso % (Auto) 0.3 % Neut # (Auto) 4.70 (1.40-6.50) K/uL Lymph # (Auto) 1.03 L (1.20-3.40) K/uL Howard # (Auto) 0.13 (0.11-0.59) K/uL Eos # (Auto) 0.01 (0.00-0.50) K/uL Baso # (Auto) 0.02 (0.00-0.20) K/uL Immature Gran # (Auto) 0.01 (0.01-0.20) K/uL Sodium 135 L (136-145) mmol/L Potassium 4.0 (3.5-5.1) mmol/L Chloride 102 (98-107) mmol/L Carbon Dioxide 24 (21-32) mmol/L Anion Gap 9 (3-11) BUN 26 H (6-23) mg/dl Creatinine 1.15 (0.6-1.2) mg/dl Est Cr Clr Drug Dosing Not Reportable eGFR 50.30 BUN/Creatinine Ratio 22.6 H (10-20) Glucose 155 H (70-99(Fasting)) mg/dl Lactate 4.9 H* 3.2 H* (0.4-2.0) mmol/L Calcium 9.8 (8.6-10.3) mg/dl Total Bilirubin 1.5 H (0.2-1.0) mg/dl AST 139 H (13-39) U/L ALT 32 (7-52) U/L Alkaline Phosphatase 98 (34-104) U/L Total Protein 9.1 H (6.0-8.3) gm/dl Albumin 4.1 (3.4-5.0) gm/dl Globulin 5.0 H (2.5-4.0) gm/dl Albumin/Globulin Ratio 0.8 L (0.9-2) Lipase 37 (11-82) U/L Administered Medications Discontinued Medications Diphenhydramine HCl (Diphenhydramine 50 Mg/Ml Vial) 50 mg IV NOW STA Stop: 01/09/24 14:38 Last Admin: 01/09/24 14:57 Dose: 50 mg Documented By: LISA Sodium Chloride (Nss) 1,000 mls @ 999 mls/hr IV .Q1H1M ONE Stop: 01/09/24 15:37 Last Infusion: 01/09/24 16:29 Dose: Infused Documented By: Admin: 01/09/24 14:56 Dose: 999 mls/hr Documented By: LISA Acetaminophen (Ofirmev) 1,000 mg in 100 mls @ 400 mls/hr IV NOW STA Stop: 01/09/24 15:08 Last Infusion: 01/09/24 16:09 Dose: Infused Documented By: Admin: 01/09/24 15:09 Dose: 400 mls/hr Documented By: FANNY Sodium Chloride (Nss) 500 mls @ 999 mls/hr IV .Q31M ONE Stop: 01/09/24 18:34 Last Admin: 01/09/24 18:14 Dose: 999 mls/hr Documented By: FANNY Ioversol (Optiray 320 100ml) 90 ml IV ONCE ONE Stop: 01/09/24 15:42 Last Admin: 01/09/24 15:41 Dose: 90 ml Documented By: REYNALDO Methylprednisolone (Methylprednisolone 125 Mg/2 Ml Vial) 40 mg IV NOW STA Stop: 01/09/24 14:38 Last Admin: 01/09/24 14:57 Dose: 40 mg Documented By: [facility] Imaging Data Radiologist's Impression: Abdomen/Pelvis CT 01/09/24 14:25 CT OF THE ABDOMEN AND PELVIS WITH CONTRAST CLINICAL HISTORY: Abdominal pain. COMPARISON STUDY: None. TECHNIQUE: Following IV administration of 90 mL of Optiray, axial images of the abdomen and pelvis were obtained from the lung bases to the proximal femurs. Images were reviewed in the axial, sagittal, and coronal planes. IV contrast was administered without complication. Automated exposure control was utilized for the study. A dose lowering technique was utilized adhering to the principles of ALARA. CT DOSE: 337.75 mGy.cm FINDINGS: There is a subsolid 5 mm right lower lobe pulmonary nodule on image 27 of 321. No pneumatosis, free air or portal venous gas is present. There is periportal edema. There is no biliary or pancreatic ductal dilatation. The spleen, adrenal glands and pancreas are unremarkable. Several suspected renal cysts are noted. Subcentimeter renal lesions are too small to characterize. There is no hydronephrosis. There is colonic diverticulosis without evidence for acute diverticulitis. There is no evidence for a bowel obstruction. The appendix is normal. Wall thickening of the hepatic flexure the colon is likely due to underdistention. There is mild wall thickening of the stomach. This is likely also due to underdistention. Prominent mucosal enhancement of multiple small bowel loops is noted. There is a small amount of fluid within the pelvis. A 4.5 cm water attenuation left adnexal lesion is noted. Multiple fibroids measure up to 3.7 cm. Major vasculature is patent. There is a moderate amount of stool within the rectum. IMPRESSION: 1. No bowel obstruction. Normal appendix. 2. Wall thickening of several small bowel loops with adjacent mesenteric edema. Mild gastric wall thickening and mucosal enhancement. The findings may reflect a gastroenteritis. 3. Colonic diverticulosis. No evidence for acute diverticulitis. Right colon wall thickening, likely related to underdistention. 4. Small amount of fluid within the pelvis. Periportal edema. 5. 4.5 cm water attenuation left adnexal cystic lesion. This favors an ovarian cyst. Nonemergent pelvic ultrasound is recommended to evaluate for complexity. 6. 5 mm subsolid right lower lobe pulmonary nodule. Follow-up chest CT in 6 months to ensure stability is recommended. ACT 112: Negative or not required by law. Electronically signed by: Brandon Layne M.D. 01/09/2024 4:16 PM Discharge Plan Visit Data Chief Complaint: Abdominal Pain Stated Complaint: SEVERE ABD PAIN, LIGHTHEAD ED Provider: Justina Verdugo Discharge Problem: Abdominal pain, Elevated lactic acid level Forms Stand Alone Forms: My [facility] Prescriptions Prescriptions: No Action levothyroxine [Synthroid] 75 mcg tablet 75 mcg PO QAM losartan 100 mg tablet 100 mg PO QAM ezetimibe 10 mg tablet 10 mg PO DAILY Multivitamin 50 Plus Tablet 1 tab PO DAILY carbidopa-levodopa 25-100 mg tablet 1 tab PO TID Referrals Referrals: Radha Chaudhry MD [Primary Care Provider] -
[2024-01-09] MEDS: SODIUM CHLORIDE 0.9% 1,000 ML IV ONE (14:56)
[2024-01-09] MEDS: diphenhydrAMINE 50 MG/ML VIAL IV STA (14:57)
[2024-01-09] MEDS: methylPREDNISolone 125 MG/2 ML VIAL IV STA (14:57)
[2024-01-09] MEDS: ACETAMINOPHEN 1,000 MG/100 ML VIAL IV STA (15:09)
[2024-01-09] MEDS: OPTIRAY 320 100ml IV ONE (15:41)
--- NOTE | 2024-01-09 16:17 | CT Scan Report ---
CT OF THE ABDOMEN AND PELVIS WITH CONTRAST CLINICAL HISTORY: Abdominal pain. COMPARISON STUDY: None. TECHNIQUE: Following IV administration of 90 mL of Optiray, axial images of the abdomen and pelvis we re obtained from the lung bases to the proximal femurs. Images were reviewed in the axial, sagittal, and coronal planes. IV contrast was administered without complication. Automated exposure control wa s utilized for the study. A dose lowering technique was utilized adhering to the principles of ALARA . CT DOSE: 337.75 mGy.cm FINDINGS: There is a subsolid 5 mm right lower lobe pulmonary nodule on image 27 of 321. No pneumatos is, free air or portal venous gas is present. There is periportal edema. There is no biliary or pancr eatic ductal dilatation. The spleen, adrenal glands and pancreas are unremarkable. Several suspected renal cysts are noted. Subcentimeter renal lesions are too small to characterize. There is no hydrone phrosis. There is colonic diverticulosis without evidence for acute diverticulitis. There is no evide nce for a bowel obstruction. The appendix is normal. Wall thickening of the hepatic flexure the colon is likely due to underdistention. There is mild wall thickening of the stomach. This is likely also due to underdistention. Prominent mucosal enhancement of multiple small bowel loops is noted. There i s a small amount of fluid within the pelvis. A 4.5 cm water attenuation left adnexal lesion is noted. Multiple fibroids measure up to 3.7 cm. Major vasculature is patent. There is a moderate amount of s tool within the rectum. IMPRESSION: 1. No bowel obstruction. Normal appendix. 2. Wall thickening of several small bowel loops with adjacent mesenteric edema. Mild gastric wall thi ckening and mucosal enhancement. The findings may reflect a gastroenteritis. 3. Colonic diverticulosis. No evidence for acute diverticulitis. Right colon wall thickening, likely related to underdistention. 4. Small amount of fluid within the pelvis. Periportal edema. 5. 4.5 cm water attenuation left adnexal cystic lesion. This favors an ovarian cyst. Nonemergent pelv ic ultrasound is recommended to evaluate for complexity. 6. 5 mm subsolid right lower lobe pulmonary nodule. Follow-up chest CT in 6 months to ensure stabilit y is recommended. ACT 112: Negative or not required by law. Electronically signed by: Brandon Layne M.D. 01/09/2024 4:16 PM
[2024-01-09] MEDS: SODIUM CHLORIDE 0.9% 500 ML IV ONE (18:14)
--- NOTE | 2024-01-09 19:32 | History & Physical Report ---
Date of Service January 09, 2024 Assessment & Plan (1) Abdominal pain: (2) Elevated lactic acid level: (3) Adnexal cyst: Plan: 73-year-old female with Parkinson disease, hypertension, hypothyroidism, And other problems noted below presenting with abdominal pain which started earlier today. Abdominal pain, possible mesenteric ischemia Lactic acid 4.9 on admission, given 1 L of NSS, improved to 3.6 Additional 1.5 L NS as ordered Repeat lactic acid at 830 tonight, and tomorrow morning N.p.o. IV NSS fluids General Surgery consulted Left adnexal cystic lesion 4.[address] abdomen pelvis Fevers and ovarian cyst Will order pelvic ultrasound Lightheadedness, holosystolic murmur Echocardiogram ordered Monitor in telemetry unit Right lower lobe pulmonary nodule 5 mm, subsolid Seen on CT abdomen pelvis Follow-up chest CT in 6 months recommended Other chronic conditions: Hypertension-continue losartan Hypothyroidism- Continue levothyroxine Melanoma s/p recent resection Breast cancer-many years ago DVT prophylaxis SCDs for now Full code per patient Disposition Anticipate return to home medically stable plan of care discussed with patient in detail and at length all questions answered she is understanding, agreeable, comfortable with the plan of care History of Present Illness Primary Care Provider: Radha Chaudhry MD 73-year-old female with Parkinson disease, hypertension, hypothyroidism, And other problems noted below presenting with abdominal pain which started earlier today. Patient was feeling well until around 11 AM, while dining in a coffee shop, patient started to feel lightheaded followed by lower abdominal discomfort. She was able to drive home, but the abdominal pain progressively worsened, became severe and radiated to bilateral lower back. No nausea, vomiting, diarrhea, fevers or chills. No chest pain, shortness of breath, dizziness At the ER, patient received with relatively stable vital signs, afebrile. CT abdomen and pelvis with IV contrast showin. No bowel obstruction. Normal appendix. 2. Wall thickening of several small bowel loops with adjacent mesenteric edema. Mild gastric wall thickening and mucosal enhancement. The findings may reflect a gastroenteritis. 3. Colonic diverticulosis. No evidence for acute diverticulitis. Right colon wall thickening, likely related to underdistention. 4. Small amount of fluid within the pelvis. Periportal edema. 5. 4.5 cm water attenuation left adnexal cystic lesion. This favors an ovarian cyst. Nonemergent pelvic ultrasound is recommended to evaluate for complexity. 6. 5 mm subsolid right lower lobe pulmonary nodule. Follow-up chest CT in 6 months to ensure stability is recommended. Lactic acid elevated at 4.9. ER physician discussed with general surgeon, who recommended additional IV fluids and monitoring of lactic acid for possible mesenteric ischemia. On my exam, patient seen resting in bed, sitting up, comfortable, not in distress States abdominal pain is significantly better, mostly resolved. No any other symptoms Allergies Allergy/AdvReac Type Severity Reaction Status Date / Time Xiavvpw-WEU-RaR Reductase Allergy Unknown legs achy Verified 12/16/22 18:46 Inhibitor Iodinated Contrast Media AdvReac Mild Rash Verified 01/09/24 14:39 1st Covid shot Allergy arm got Uncoded 12/16/22 18:50 hives/itchy for 10 days Steroid shot Allergy Flushed & Uncoded 12/16/22 18:50 hot flushes Home Medications Medication Instructions Recorded Confirmed Type ezetimibe 10 mg tablet 10 mg PO DAILY 12/16/22 01/09/24 History levothyroxine 75 mcg tablet 75 mcg PO QAM 12/16/22 01/09/24 History (Synthroid) losartan 100 mg tablet 100 mg PO QAM 12/16/22 01/09/24 History rnjlgqdjotvv-jdcrtoyu-iailwb 1 tab PO DAILY 12/16/22 01/09/24 History tablet (Multivitamin 50 Plus tablet) carbidopa 25 mg-levodopa 100 mg 1 tab PO TID 01/09/24 01/09/24 History tablet Past Med/Surg History Problem List (Updated 01/09/24 @ 19:29 by Carmelo Mclaughlin MD) Adnexal cyst Elevated lactic acid level (Acute) Abdominal pain (Acute) Parkinson disease CKD (chronic kidney disease) stage 3, GFR 30-59 ml/min HLD (hyperlipidemia) Hypertension Medical History (Updated 01/09/24 @ 19:29 by Carmelo Mclaughlin MD) History of melanoma Osteoarthritis Sjogren syndrome History of Graves' disease SIRS (systemic inflammatory response syndrome) Breast cancer Postablative hypothyroidism (Unknown) Surgical History (Updated 01/09/24 @ 17:30 by Faith Gore PA-C) H/O melanoma excision Hx of blepharoplasty H/O lumpectomy Family History Other Asthma Cancer Heart disease Social History Smoking Status: Never smoker Hx Alcohol Use: Yes Hx Substance Use: No Preferred Language: Malawian Communication Ability: Effective Winemaker Required: No Beliefs That Will Affect Care: None Current Living Situation: Spouse Feels Safe at Home: Yes Assistive Devices: None Review of Systems Review of Systems: all noted and negative except for above Physical Exam Physical Exam: General- oriented x 3, not in distress, speaks in sentences with no effort or accessory muscle use Head- atraumatic Eyes- PERRL, EOMI, anicteric ENT- oropharynx clear Neck- supple, no JVD, no adenopathy, no thyromegaly; carotids +2/2, no bruits appreciated Lungs- clear to auscultation bilaterally, no rales/wheezes Heart- normal rate, regular rhythm; Positive grade 2 holosystolic murmur, no gallop, no rub appreciated Abdomen- normal bowel sounds, nondistended, soft, Mild tenderness left lower quadrant, no masses or hepatosplenomegaly Extremities- no pretibial edema, no calf tenderness; peripheral pulses intact Neuro- alert, oriented x 3; CN 2-12 grossly intact; motor 5/5 bilaterally;sensation 100% on all extremities; no other gross focal neurologic deficits Skin- warm & dry Results & Data Results & Data Vital Signs (Past 12 Hours) Vital Signs Temp Pulse Pulse Resp BP BP Pulse Ox 01/09/24 18:24 83 01/09/24 16:00 89 20 129/73 97 01/09/24 14:29 93 H 01/09/24 14:26 36.4 C L 99 H 20 113/95 95 01/09/24 14:00 36.4 C L 97 H 20 153/82 H 98 O2 Del Method 01/09/24 18:24 01/09/24 16:00 Room Air 01/09/24 14:29 01/09/24 14:26 Room Air 01/09/24 14:00 Room Air all noted and reviewed including below Code Status & VTE Plan VTE Prophylaxis Plan VTE Prophylaxis will be ordered: Yes
--- NOTE | 2024-01-09 19:51 | Surgery Consultation ---
Date of Consultation January 09, 2024 Assessment & Plan (1) Abdominal pain: (2) Elevated lactic acid level: Plan 73-year-old woman presents with acute abdominal pain and an elevated lactic acid. She has normal white count. She is not febrile. Her pain has resolved at the time that I examined her. She had minimal tenderness to palpation. Lactic acid has decreased to 3.2 with minimal fluid hydration. She will be admitted to medicine and carefully observed. If her pain worsens or her lactic acid climbs, she may require exploratory laparoscopy. We will observe her closely for now. History of Present Illness Reason for Consultation: abdominal pain elevated lactate Requesting Physician: ED physician Attending Physician: ED physician History of Present Illness 73-year-old woman presents with 1 day history of abdominal pain. She did have some chills with this. She has had no actual fever. She denies nausea or vomiting. The pain was fairly severe but then subsided. Currently she does not have any acute pain. She has not had pain medication in over [address] scan demonstrated what appears to be a gastroenteritis with mild thickening of the distal stomach and small bowel. Lactic acid was 4.9 but decreased to 3.2 with mild hydration. White blood cell count is normal. She is not febrile or tachycardic. Allergies Allergy/AdvReac Type Severity Reaction Status Date / Time Wtmcrsv-BRR-RbR Reductase Allergy Unknown legs achy Verified 12/16/22 18:46 Inhibitor Iodinated Contrast Media AdvReac Mild Rash Verified 01/09/24 14:39 1st Covid shot Allergy arm got Uncoded 12/16/22 18:50 hives/itchy for 10 days Steroid shot Allergy Flushed & Uncoded 12/16/22 18:50 hot flushes Home Medications Medication Instructions Recorded Confirmed Type ezetimibe 10 mg tablet 10 mg PO DAILY 12/16/22 01/09/24 History levothyroxine 75 mcg tablet 75 mcg PO QAM 12/16/22 01/09/24 History (Synthroid) losartan 100 mg tablet 100 mg PO QAM 12/16/22 01/09/24 History qttcmuqkpdbv-tztddqdn-gpvdmu 1 tab PO DAILY 12/16/22 01/09/24 History tablet (Multivitamin 50 Plus tablet) carbidopa 25 mg-levodopa 100 mg 1 tab PO TID 01/09/24 01/09/24 History tablet Patient History Medical History History of melanoma Osteoarthritis Sjogren syndrome History of Graves' disease SIRS (systemic inflammatory response syndrome) Breast cancer Postablative hypothyroidism (Unknown) Surgical History H/O melanoma excision Hx of blepharoplasty H/O lumpectomy Family History Other Asthma Cancer Heart disease Social History Smoking Status: Never smoker Hx Alcohol Use: Yes Hx Substance Use: No Preferred Language: Urdu Communication Ability: Effective Director Construction Services Required: No Beliefs That Will Affect Care: None Current Living Situation: Spouse Feels Safe at Home: Yes Assistive Devices: None Review of Systems Review of Systems: All systems reviewed & are unremarkable except as noted in HPI & below Physical Exam Constitutional: WD/WN, vitals as above Eyes: PERRL, conjunctivae normal, anicteric sclerae Neck: trachea midline, no thyromegaly Respiratory: normal respiratory effort; no respiratory distress and no labored breathing Cardiovascular: Rate/Rhythm: regular rate and regular rhythm Gastrointestinal (Abdomen): Inspection/Auscultation: abdomen normal to inspection; abdomen not distended Percussion/Palpation: + abdomen tender ( Mild diffuse tenderness on deep palpation) and abdomen soft; no guarding and abdomen not rigid Skin: no rashes, warm and dry Psychiatric: A+Ox3, euthymic affect Results & Data Vital Signs (Past 12 Hours) Vital Signs Temp Pulse Pulse Resp BP BP Pulse Ox 01/09/24 18:24 83 01/09/24 16:00 89 20 129/73 97 01/09/24 14:29 93 H 01/09/24 14:26 36.4 C L 99 H 20 113/95 95 01/09/24 14:00 36.4 C L 97 H 20 153/82 H 98 O2 Del Method 01/09/24 18:24 01/09/24 16:00 Room Air 01/09/24 14:29 01/09/24 14:26 Room Air 01/09/24 14:00 Room Air Laboratory Results 01/09/24 01/09/24 01/09/24 Range/Units 16:24 14:31 14:10 WBC 5.90 (4.8-10.8) K/ul RBC 4.06 L (4.20-5.40) M/uL Hgb 12.6 (12.0-16.0) g/dl Hct 38.6 (37.0-47.0) % MCV 95.1 (80.0-100.0) fL MCH 31.0 (25.0-34.0) pg MCHC 32.6 (32.0-36.0) g/dL RDW Std Deviation 50.6 H (36.4-46.3) fL RDW Coeff of Lacie 14.4 (11.5-14.5) % Plt Count 199 (130-400) K/uL MPV 9.7 (9.4-12.4) fL Immature Gran % (Auto) 0.2 % Neut % (Auto) 79.6 % Lymph % (Auto) 17.5 % Hand % (Auto) 2.2 % Eos % (Auto) 0.2 % Baso % (Auto) 0.3 % Neut # (Auto) 4.70 (1.40-6.50) K/uL Lymph # (Auto) 1.03 L (1.20-3.40) K/uL Hand # (Auto) 0.13 (0.11-0.59) K/uL Eos # (Auto) 0.01 (0.00-0.50) K/uL Baso # (Auto) 0.02 (0.00-0.20) K/uL Immature Gran # (Auto) 0.01 (0.01-0.20) K/uL Sodium 135 L (136-145) mmol/L Potassium 4.0 (3.5-5.1) mmol/L Chloride 102 (98-107) mmol/L Carbon Dioxide 24 (21-32) mmol/L Anion Gap 9 (3-11) BUN 26 H (6-23) mg/dl Creatinine 1.15 (0.6-1.2) mg/dl Est Cr Clr Drug Dosing Not Reportable eGFR 50.30 BUN/Creatinine Ratio 22.6 H (10-20) Glucose 155 H (70-99(Fasting)) mg/dl Lactate 3.2 H* 4.9 H* (0.4-2.0) mmol/L Calcium 9.8 (8.6-10.3) mg/dl Total Bilirubin 1.5 H (0.2-1.0) mg/dl AST 139 H (13-39) U/L ALT 32 (7-52) U/L Alkaline Phosphatase 98 (34-104) U/L Total Protein 9.1 H (6.0-8.3) gm/dl Albumin 4.1 (3.4-5.0) gm/dl Globulin 5.0 H (2.5-4.0) gm/dl Albumin/Globulin Ratio 0.8 L (0.9-2) Lipase 37 (11-82) U/L Diagnostic Findings CT OF THE ABDOMEN AND PELVIS WITH CONTRAST CLINICAL HISTORY: Abdominal pain. COMPARISON STUDY: None. TECHNIQUE: Following IV administration of 90 mL of Optiray, axial images of the abdomen and pelvis were obtained from the lung bases to the proximal femurs. Images were reviewed in the axial, sagittal, and coronal planes. IV contrast was administered without complication. Automated exposure control was utilized for the study. A dose lowering technique was utilized adhering to the principles of ALARA. CT DOSE: 337.75 mGy.cm FINDINGS: There is a subsolid 5 mm right lower lobe pulmonary nodule on image 27 of 321. No pneumatosis, free air or portal venous gas is present. There is periportal edema. There is no biliary or pancreatic ductal dilatation. The spleen, adrenal glands and pancreas are unremarkable. Several suspected renal cysts are noted. Subcentimeter renal lesions are too small to characterize. There is no hydronephrosis. There is colonic diverticulosis without evidence for acute diverticulitis. There is no evidence for a bowel obstruction. The appendix is normal. Wall thickening of the hepatic flexure the colon is likely due to underdistention. There is mild wall thickening of the stomach. This is likely also due to underdistention. Prominent mucosal enhancement of multiple small bowel loops is noted. There is a small amount of fluid within the pelvis. A 4.5 cm water attenuation left adnexal lesion is noted. Multiple fibroids measure up to 3.7 cm. Major vasculature is patent. There is a moderate amount of stool within the rectum. IMPRESSION: 1. No bowel obstruction. Normal appendix. 2. Wall thickening of several small bowel loops with adjacent mesenteric edema. Mild gastric wall thickening and mucosal enhancement. The findings may reflect a gastroenteritis. 3. Colonic diverticulosis. No evidence for acute diverticulitis. Right colon wall thickening, likely related to underdistention. 4. Small amount of fluid within the pelvis. Periportal edema. 5. 4.5 cm water attenuation left adnexal cystic lesion. This favors an ovarian cyst. Nonemergent pelvic ultrasound is recommended to evaluate for complexity. 6. 5 mm subsolid right lower lobe pulmonary nodule. Follow-up chest CT in 6 months to ensure stability is recommended. ACT 112: Negative or not required by law. Electronically signed by: Brandon Layne M.D. 01/09/2024 4:16 PM (1) Abdominal pain Abdominal location: generalized Qualified Code(s): R10.84 - Generalized abdominal pain
[2024-01-09] MEDS ORDERED: ACETAMINOPHEN 325 MG TAB PO PRN (22:04)
[2024-01-09] MEDS: LACTATED RINGER'S 1,000 ML IV ONE (22:48)
[2024-01-09 23:10] LABS: Appearance Urine Clear (Clear); Bacteria Urine Automated 3+ (None Seen); Bilirubin Urine Negative (Negative); Blood Urine Negative (Negative); Cast Urine Automated 0-2 /lpf (0-2); Color Urine Yellow; Epithelial Cell Urine Auto 0-2 /hpf (0-2); Glucose Urine UA Negative (Negative); Ketones Urine Negative (Negative); Leukocyte Esterase Urine 1+ (Negative); Nitrite Urine Positive (Negative); Protein Urine Trace (Negative); RBC Urine Automated 0-2 /hpf (0-2); Specific Gravity Urine > 1.045 (1.000-1.030); Urobilinogen Urine Negative (Negative); WBC Urine Automated 21-50 /hpf (0-5)
--- OUTSIDE RECORDS SUMMARY | 2024-01-09 23:54 | External Medical Summary | Summary of Care ---
Author Name Unknown Organization [facility] Address [address] [place] [address] Phone [phone] Care [address] Wirer Name Role Phone Radha Chaudhry MD Primary Care Provider + Reason for Visit * Reason Onset Date Comments Appointment 10/05/2023 Encounter Details Date Type Department Care Team (Late st Contact Info) Description 10/05/2023 Telephone General Internal Medicine [facility] [place] [address] [facility] [place] [address] Radha Chaudhry MD [address] [facility] [place] [address] Appointment Allergies Active Allergy Reactions Criticality Noted Date Comments Iodine Hives Low 02/08/2023 Per Pt in [address] Scan and had a hive break out on her chest Simvastatin High 12/05/2008 Muscle pain documented as of this encounter (statuses as of 10/06/2023) Medications Medication Sig Dispensed Refills Start Date End Date Status B COMPLEX OR TABSIndications:Toxic diffuse goiter 1 tab daily 0 07/01/2004 Active Ventolin HFA 108 (90 Base) MCG/ACT Inhalation Aerosol SolutionIndications:P neumonia of both lungs due to infectious organism, unspecified part of lung Inhale 2 Puffs by mouth in the morning and 2 Puffs at noon and 2 Puffs in the evening and 2 Puffs before bedtime. 18 g 2 12/21/2022 Active Spacer/Aero-Holding Chambers DeviceIndications:Pne umonia of both lungs due to infectious organism, unspecified part of lung Use with inhaler. 1 Each 12/21/2022 Active Multivitamin Adults 50+ Oral Tablet Take 1 Tablet by mouth in the morning. Active Probiotic & Acidophilus Ex St Oral Capsule Take 1 Capsule by mouth in the morning. Active Magnesium 500 MG Oral Capsule Take 1 Capsule by mouth in the morning. Active Losartan Potassium 100 MG Oral Tablet (Cozaar)Indications:H TN, goal below 140/90 TAKE 1 TABLET BY MOUTH EVERY DAY IN THE MORNING 90 Tablet 1 07/19/2023 Active Ezetimibe 10 MG Oral Tablet (Zetia)Indications:Hy perlipidemia with target LDL less than 160 TAKE 1 TABLET BY MOUTH EVERY DAY IN THE MORNING 90 Tablet 1 08/02/2023 Active Restasis 0.05 % Ophthalmic Emulsion PUT 1 DROP IN EACH EYE 2 TIMES DAILY (ONCE IN MORNING AND ONCE AT NIGHT-12 HOURS APART) 08/16/2023 Active Carbidopa-Levodopa 25-100 MG Oral Tablet (Sinemet)Indications: Parkinson's disease without dyskinesia or fluctuating manifestations (HCC) Take 1 tablet per mouth three times a day at 7AM-11:30AM-5:30 PM 270 Tablet 09/14/2023 Active Synthroid 75 MCG Oral TabletIndications:Pos tablative hypothyroidism Take 1 Tablet by mouth in the morning 6 days a week. (at least 30 min prior to breakfast or other meds) 90 Tablet 09/29/2023 Active documented as of this encounter (statuses as of 10/06/2023) Active Problems Problem Noted Date Diagnosed Date History of melanoma 12/02/2022 Postablative hypothyroidism 01/01/2021 Stage 3a chronic kidney disease 02/18/2020 Overview: Per CKD protocol - Per CKD protocol Generalized osteoarthritis 06/18/2019 Primary osteoarthritis of both knees 05/18/2017 Sjogren's syndrome with keratoconjunctivitis sic ca 08/19/2016 Petechial rash 08/19/2016 History of Graves' disease 08/19/2016 CLEMENTINA positive 08/04/2016 Toxic diffuse goiter 12/11/2003 Overview: Graves disease HTN, goal below 140/90 12/11/2003 Overview: Modified per HTN Taxonomy. Hyperlipidemia with target LDL less than 160 Overview: ICD-10 update of inactive term documented as of this encounter (statuses as of 10/06/2023) Resolved Problems Problem Noted Date Diagnosed Date Resolved Date Malignant melanoma of left u pper extremity including shoulder 01/01/2021 12/02/2022 Chronic kidney disease, stage 3a 01/14/2020 02/21/2020 Overview: Per CKD protocol ADVANCE DIRECTIVE INFORMATION 06/15/2005 06/08/2016 Overview: No, Advance Directive brochure given to patient at prior appointment. Hypothyroidism 12/11/2003 06/08/2016 Overview: sec. to treatment for Grave's disease Dyslipidemia, goal to be determined 12/11/2003 03/05/2013 Breast neoplasm 12/11/2003 06/08/2016 Overview: left breast cancer ICD-10 update of inactive term Dyslipidemia, goal to be determined 04/04/2008 Overview: Resolved per Duplicate Protocol #2. Breast neoplasm 06/08/2016 Overview: left breast cancer ICD-10 update of inactive term Edema 01/01/2021 documented as of this encounter (statuses as of 10/06/2023) Immunizations Name Administration Dates Next Due COVID-19 mRNA, LNP-s, No Pre serve, 2-Dose Series (Moderna) 05/13/2020,04/22/2020 COVID-19, MRNA-LNP, 23-24, P F, 50 MCG/0.5 mL, 12 YRS AND ABOVE, IM (MODERNA-Spikevax) 01/13/2023 Pneumococcal Conjugate Vacc, 13 Valent (Prevnar) 06/08/2016 Pneumococcal Polysaccharide PPV23 (Pneumovax) Seasonal Influenza, PF, 6 M & above, IM , (FluLaval or Fluzone) 01/24/2023,12/27/2017 Seasonal Influenza, Quadrivalent Hd (Fluzone Hd) 01/24/2023 Seasonal Influenza, Quadrivalent, No Preserve, I M 11/30/2019 Seasonal Influenza, Trivalen t, High Dose, No Preserve, IM 12/28/2018 Varicella Zoster Vaccine (Adult) 09/04/2013 Zoster Vaccine Recombinant (Shingrix) 02/12/2020 ,11/30/2019 documented as of this encounter Social History Tobacco Use Types Packs/Day Years Used Date Smoking Tobacco: Never Smokeless Tobacco: Never Alcohol Use Standard Drinks/Week Comments Yes 0 (1 standard drink = 0.6 oz pur e alcohol) socially PHQ-2 Answer Date Recorded PHQ Adult Total Score 0 09/18/2020 Hunger Vital Sign Answer Date Recorded Within the past 12 months, y ou worried that your food would run out before you got the money to buy more. Never true 09/19/19 21 Within the past 12 months, t he food you bought just didn't last and you didn't have money to get more. Never true 09/18/2020 Sex and Gender Information Value Date Recorded Sex Assigned at Female 06/15/2018 9:12 AM EDT Gender Identity Female 06/15/2018 9:12 AM EDT Sexual Orientation Straight 06/15/2018 9: 12 AM EDT Job Start Date Occupation Industry Not on file Not on file Not on file documented as of this encounter Miscellaneous Notes * Telephone Encounter - Christopher Banda OSA - 10/06/2023 9:26 AM EDT LMOM 10/06/23 2 contact attempts made - unable to reach - Letter Sent * Telephone Encounter - Christopher Banda OSA - 10/05/2023 3:05 PM EDT LMOM to schedule 10/05/23 * Telephone Encounter - Christopher Banda OSA - 10/05/2023 3:04 PM EDT Pt needs to pau RHEUMATOLOGY Associated Diagnoses Sjogren's syndrome with keratoconjunctivitis sicca (HCC) [M35.01] documented in this encounter Plan of Treatment Upcoming Encounters Date Type Department Care Team (Late st Contact Info) Description 02/23/2024 10:00 AM EST Office [facility] [address] [place] [address] Kyle Ragland MD [address] [place] [address] Health Maintenance Due Date Last Done Comments Hepatitis C Screening 1968 DTaP,Tdap,and Td Vaccines (1 - Tdap) 1969 Colonoscopy 10/08/1995 Fecal Occult Blood Test 10/08/1995 Sigmoidoscopy 10/08/1995 Depression Screening 09/18/2021 09/18/2020 COVID-19 Vaccine ( season) 2023 01/13/2023, 05/13/2020, 04/22/2020 Influenza Vaccine (FLU shot) (#1) 2023 01/24/2023, 01/24/2023, 11/30/2019, Additional history exists Mammogram 12/28/2023 12/27/2022, 12/06, 12/22/2020, Additional history exists GFR 03/28/2024 09/26/2023, 08/05, 01/31/2023, Additional history exists Albumin/Creatinine Ratio 09/25/2024 024, 08/17/2022, 09/24/2021, Additional history exists CKD HGB USE SMARTSET 33737 09/25/202409/25, 08/22/2023, 12/02/2022, Additional history exists CKD PHOS USE SMARTSET 10065 09/25/202409/05, 09/28/2022, 09/24/2021, Additional history exists TSH 09/25/2024 09/26/2023, 11/06, 08/17/2022, Additional history exists Cologuard 10/20/2025 10/20/2022, 10/05, 10/14/2022, Additional history exists Colorectal Cancer Screening 10/20/2025 DXA Scan 11/30/2025 11/30/2022, 11/06, 06/24/2015 Lipid Panel 09/25/2028 09/26/2023, 02/06, 09/18/2020, Additional history exists Pneumococcal Vaccine: 65+ Years Completed 06/09/2017, 06/08/2016 Zoster Vaccines Completed 02/12/2020, 11/06, 09/04/2013 HPV (Gardasil) Vaccine Aged Out No lo nger eligible based on patient's age to complete this topic Hepatitis B Vaccine Aged Out No longe r eligible based on patient's age to complete this topic MENINGOCOCCAL (MENACTRA/MENVEO) Aged Out No longer eligible based on patient's age to complete this topic documented as of this encounter Medical Devices Not on filedocumented as of this encounter Care Teams Street Light Wirer Relationship Specialty Start Date End Date Radha Chaudhry MD [address] [place] [address] PCP - General Internal Medicine 04/16/14 documented as of this encounter
--- OUTSIDE RECORDS SUMMARY | 2024-01-09 23:54 | External Medical Summary | Summary of Care ---
Author Name Unknown Organization [facility] Address [address] [place] [address] Phone [phone] Care Team Providers Care Engineering Librarian Name Role Phone Radha Chaudhry MD Primary Care Provider + Reason for Visit * Reason Onset Date Comments Medication Administration 12/02/2023 Flu an d/or Pneumo Inj Encounter Details Date Type Department Care Team (Late st Contact Info) Description 12/02/2023 1:15 PM EDT Immunization Ancillary [address] [place] [address] [place] [address] [place] [address] Need for prophylactic vaccination and inoculation against influenza* Allergies Active Allergy Reactions Criticality Noted Date Comments Iodine Hives Low 02/08/2023 Per Pt in [address] Scan and had a hive break out on her chest Simvastatin High 12/05/2008 Muscle pain documented as of this encounter (statuses as of 12/02/2023) Medications Medication Sig Dispensed Refills Start Date [...] as of this encounter (statuses as of 12/02/2023) Active Problems Problem Noted Date Diagnosed Date [...] as of this encounter (statuses as of 12/02/2023) Resolved Problems Problem Noted Date Diagnosed Date [...] as of this encounter (statuses as of 12/02/2023) Immunizations Name Administration Dates Next Due COVID-19 mRNA, LNP-s, No Pre serve, 2-Dose Series (Moderna) 05/13/2020,04/22/2020 COVID-19, MRNA-LNP, 23-24, P F, 50 MCG/0.5 mL, 12 YRS AND ABOVE, IM (MODERNA-Spikevax) 01/13/2023 Pneumococcal Conjugate Vacc, 13 Valent (Prevnar) 06/08/2016 Pneumococcal Polysaccharide PPV23 (Pneumovax) Seasonal Influenza, High Dos e, Trivalent, PF, IM (Fluzone HD) 12/02/2023,12/28/2018 Seasonal Influenza, PF, 6 M & above, IM , (FluLaval or Fluzone) 01/24/2023,12/27/2017 Seasonal Influenza, Quadrivalent Hd (Fluzone Hd) 01/24/2023 Seasonal Influenza, Quadrivalent, No Preserve, I M 11/30/2019 Varicella Zoster Vaccine (Adult) 09/04/2013 Zoster Vaccine [...] on file documented as of this encounter Progress Notes * Evelyn Madera LPN - 12/02/2023 4:31 PM EDT PRE - ADMINISTRATION DOCUMENTATION Are you experiencing any cold symptoms or fever? No Have you had Guillain-[place] Syndrome (an illness that causes paralysis) within the last 6 weeks? No Have you had the flu shot in the past? YES Have you ever had a reaction to the flu shot? No Evelyn Madera LPN, 12/02/2023 4:31 PM Immunization Administration Documentation Time Out Procedure Performed: Yes Patient Identified (Ask Name/Date of ): Yes Does the patient have a fever greater than 101 degrees today? No Patient allergic to latex? No VFC Stock: No Immunization(s) verified: Yes, Immunization Name: Flu, VIS Sheet(s) given: Yes Verified Side and Site: Yes Verified Shot(s) with Parent(s)/Patient: Yes documented in this encounter Plan of Treatment Upcoming Encounters Date Type Department Care Team (Late st Contact Info) Description 02/23/2024 10:00 AM EST Office Visit Neurology [facility] Cyndi Wheeler [address] [place] [address] Kyle Ragland MD [address] [place] [address] Health Maintenance Due Date Last Done Comments Hepatitis C Screening 1968 DTap/Tdap Vaccines (1 - Tdap) 1969 Colonoscopy 10/08/1995 Fecal Occult Blood Test 10/08/1995 Sigmoidoscopy 10/08/1995 Adult Wellness Visit 2016 Depression Screening 09/18/2021 09/18/2020 COVID-19 Vaccine ( season) 2023 01/13/2023, 05/13/2020, 04/22/2020 Mammogram 12/28/2023 12/27/2022, 12/06, 12/22/2020, Additional history exists GFR 03/28/2024 09/26/2023, 08/05, 01/31/2023, Additional history exists Albumin/Creatinine Ratio 09/25/2024 024, 08/17/2022, 09/24/2021, Additional history exists CKD HGB USE SMARTSET 38711 09/25/202409/25, 08/22/2023, 12/02/2022, Additional history exists CKD PHOS USE SMARTSET 39622 09/25/202409/05, 09/28/2022, 09/24/2021, Additional history exists TSH 09/25/2024 09/26/2023, 11/06, 08/17/2022, Additional history exists Cologuard 10/20/2025 10/20/2022, 10/05, 10/14/2022, Additional history exists Colorectal Cancer Screening 10/20/2025 DXA Scan 11/30/2025 11/30/2022, 11/06, 06/24/2015 Lipid Panel 09/25/2028 09/26/2023, 02/06, 09/18/2020, Additional history exists Pneumococcal Vaccine: 65+ Years Completed 06/09/2017, 06/08/2016 Zoster Vaccines Completed 02/12/2020, 11/06, 09/04/2013 Influenza Vaccine (FLU shot) Completed , 01/24/2023, 01/24/2023, Additional history exists HPV (Gardasil) Vaccine Aged Out No lo nger eligible based on patient's age to complete this topic Hepatitis B Vaccine Aged Out No longe r eligible based on patient's age to complete this topic MENINGOCOCCAL (MENACTRA/MENVEO) Aged Out No longer eligible based on patient's age to complete this topic documented as of this encounter Medical Devices Not on filedocumented as of this encounter Visit Diagnoses Diagnosis Need for prophylactic vaccination and inoculation against influenza- Primary documented in this encounter Care Teams Engineering Librarian Relationship Specialty Start Date End Date Radha Chaudhry MD [address] [place] [address] PCP - General Internal Medicine 04/16/14 documented as of this encounter
--- OUTSIDE RECORDS SUMMARY | 2024-01-09 23:54 | External Medical Summary | Summary of Care ---
Author Name Unknown Organization [facility] Address [address] [place] [address] Phone [phone] Care Team Providers Care Marriage And Family Therapist Name Role Phone Garth Chaudhry MD Primary Care Provider + Reason for Visit * Reason Onset Date Comments Test Results Lab 09/27/2023 thyroid Encounter Details Date Type Department Care Team (Late st Contact Info) Description 09/27/2023 Refill General Internal Medicine [facility] [place] [address] [facility] [place] [address] Garth Chaudhry MD [address] [facility] [place] [address] Postablative hypothyroidism*; Low TSH level; High serum thyroxine (T4) Allergies Active Allergy Reactions Criticality Noted Date Comments Iodine Hives Low 02/08/2023 Per Pt in [address] Scan and had a hive break out on her chest Simvastatin High 12/05/2008 Muscle pain documented as of this encounter (statuses as of 09/29/2023) Medications Medication Sig Dispensed Refills Start Date End Date Status B COMPLEX OR TABSIndications:Toxi c diffuse goiter 1 tab daily 0 07/01/2004 Active Ventolin HFA 108 (90 Base) MCG/ACT Inhalation Aerosol SolutionIndications: Pneumonia of both lungs due to infectious organism, unspecified part of lung Inhale 2 Puffs by mouth in the morning and 2 Puffs at noon and 2 Puffs in the evening and 2 Puffs before bedtime. 18 g 2 12/21/2022 Active Spacer/Aero-Holding Chambers DeviceIndications:Pn eumonia of both lungs due to infectious organism, [...] Active Losartan Potassium 100 MG Oral Tablet (Cozaar)Indications: HTN, goal below 140/90 TAKE 1 TABLET BY MOUTH EVERY DAY IN THE MORNING 90 Tablet 1 07/19/2023 Active Ezetimibe 10 MG Oral Tablet (Zetia)Indications:H yperlipidemia with target LDL less than 160 TAKE 1 TABLET BY MOUTH EVERY DAY IN THE MORNING 90 Tablet 1 08/02/2023 Active Restasis 0.05 % Ophthalmic Emulsion PUT 1 DROP IN EACH EYE 2 TIMES DAILY (ONCE IN MORNING AND ONCE AT NIGHT-12 HOURS APART) 08/16/2023 Active Carbidopa-Levodopa 25-100 MG Oral Tablet (Sinemet)Indications :Parkinson's disease without dyskinesia or fluctuating manifestations (HCC) Take 1 tablet per mouth three times a day at 7AM-11:30AM-5: 30PM 270 Tablet 09/14/2023 Active Synthroid 75 MCG Oral TabletIndications:Po stablative hypothyroidism Take 1 Tablet by mouth in the morning 6 days a week. (at least 30 min prior to breakfast or other meds) 90 Tablet 09/29/2023 Active Levothyroxine Sodium 75 MCG Oral Tablet (Synthroid) Take 1 Tablet by mouth in the morning. (at least 30 min prior to breakfast or other meds) brand name only. 90 Tablet 3 03/24/2023 4 Discontinue d(Refill) documented as of this encounter (statuses as of 09/29/2023) Active Problems Problem Noted Date Diagnosed Date [...] as of this encounter (statuses as of 09/29/2023) Resolved Problems Problem Noted Date Diagnosed Date [...] as of this encounter (statuses as of 09/29/2023) Immunizations Name Administration Dates Next Due COVID-19 [...] encounter Miscellaneous Notes * Telephone Encounter - Jim Baugh, [facility] - 09/29/2023 1:51 PM EDT Patient informed of dose decrease. Plans to skip dose every Tuesday. Will get repeat thyroid labs inappx 8 weeks, declined lab appt. Sebastián Otero.Ph. Clinical Pharmacist [facility] [address] [place] [address], [address] [place] [address] MC: [id number] 09/29/2023,1:52 PM * Telephone Encounter - Garth Chaudhry MD - 09/29/2023 1:25 PM EDTSigned Prescriptions: Disp Refills Synthroid 75 MCG Oral Tablet 90 Tab*0 Sig: Take 1 Tablet by mouth in the morning 6 days a week. (at least 30 min prior to breakfast or other meds) Authorizing Provider: GARTH CHAUDHRY * Telephone Encounter - Garth Chaudhry MD - 09/29/2023 1:14 PM EDT Agree with the plan. Signed. Please inform. Thanks. * Telephone Encounter - Jim Baugh [facility] - 09/27/2023 6:26 AM EDT TSH Date Value Ref Range Status 09/26/2023 0.10 (L) 0.27 - 4.20 uIU/mL Final FREET4 Date Value Ref Range Status 09/26/2023 2.0 (H) 0.9 - 1.7 ng/dL Final Recommend decreasing levothyroxine 75mcg to 6 days per week and recheck thyroid labs in appx 8 weeks. Orders pended. Please approve if appropriate then route back to me and I will inform patient. Allen OteroPh. Clinical Pharmacist [facility] [address] [place] [address], [facility] [address]: [phone] 09/27/2023,6:26 AM documented in this encounter Plan of Treatment Upcoming Encounters Date Type Department Care Team (Late st Contact Info) Description 10/04/2023 1:00 PM EDT Office Visit General Internal Medicine [facility] [address] [place] [address] Garth Chaudhry MD [address] [facility] [place] [address] 02/23/2024 10:00 AM EST Office Visit Neurology [facility] [address] [place] [address] Kyle Ragland MD [address] [place] [address] Scheduled Orders Name Type Priority Associated Diagnoses Orde r Schedule TSH Lab Routine Postablative hypothyroidism Low TSH level Expected: 11/22/2023 (Approximate), Expires: 09/28/2024 T4, FREE Lab Routine Postablative hypothyroidism High serum thyroxine (T4) Expected: 11/22/2023 (Approximate), Expires: 09/28/2024 Health Maintenance Due Date Last Done Comments [...] Additional history exists CKD HGB USE SMARTSET 60216 09/25/202409/25, 08/22/2023, 12/02/2022, Additional history exists CKD PHOS USE SMARTSET 11208 09/25/202409/05, 09/28/2022, 09/24/2021, Additional history exists TSH 09/25/2024 09/26/2023, 11/06, 08/17/2022, Additional history exists Cologuard 10/20/2025 10/20/2022, 10/05, 10/14/2022, Additional history exists Colorectal Cancer Screening 10/20/2025 DXA Scan 11/30/2025 11/30/2022, 11/06, 06/24/2015 Lipid Panel 09/25/2028 09/26/2023, 02/06, 09/18/2020, Additional history exists Pneumococcal Vaccine: 65+ Years Completed 06/09/2017, 06/08/2016 Zoster Vaccines Completed 02/12/2020, 11/06, 09/04/2013 *BASELINE EKG FOR HTN Completed 12/02/2022 HPV (Gardasil) Vaccine Aged Out No lo [...] as of this encounter Visit Diagnoses Diagnosis Postablative hypothyroidism- Primary Other postablative hypothyroidism Low TSH level Nonspecific abnormal results of thyroid function study High serum thyroxine (T4) documented in this encounter Care Teams Marriage And Family Therapist Relationship Specialty Start Date End Date Garth Chaudhry MD [address] [place] [address] PCP - General Internal Medicine 04/16/14 documented as of this encounter
--- OUTSIDE RECORDS SUMMARY | 2024-01-09 23:54 | External Medical Summary | Summary of Care ---
Author Name Unknown Organization [facility] Address [address] [place] [address] Phone [phone] Care Team Providers Care Pesticide Control Inspector Name Role Phone Radha Chaudhry MD Primary Care Provider + Reason for Visit * Reason Onset Date Comments Test Results 12/16/2023 Encounter Details Date Type Department Care Team (Late st Contact Info) Description 12/16/2023 Telephone General Internal Medicine [facility] [place] [address] [facility] [place] [address] Radha Chaudhry MD [address] [facility] [place] [address] Test Results Allergies Active Allergy Reactions Criticality Noted Date Comments Iodine Hives Low 02/08/2023 Per Pt in [address] Scan and had a hive break out on her chest Simvastatin High 12/05/2008 Muscle pain documented as of this encounter (statuses as of 01/03/2024) Medications Medication Sig Dispensed Refills Start Date [...] ONCE AT NIGHT-12 HOURS APART) 08/16/2023 Active Synthroid 75 MCG Oral TabletIndications:Pos tablative hypothyroidism Take 1 Tablet by mouth in the morning 6 days a week. (at least 30 min prior to breakfast or other meds) 90 Tablet 09/29/2023 Active Carbidopa-Levodopa 25-100 MG Oral Tablet (Sinemet)Indications: Parkinson's disease without dyskinesia or fluctuating manifestations (HCC) TAKE 1 TABLET PER MOUTH THREE TIMES A DAY AT 7AM-11:30AM-5:30 PM 270 Tablet 12/09/2023 Active documented as of this encounter (statuses as of 01/03/2024) Active Problems Problem Noted Date Diagnosed Date [...] as of this encounter (statuses as of 01/03/2024) Resolved Problems Problem Noted Date Diagnosed Date [...] as of this encounter (statuses as of 01/03/2024) Immunizations Name Administration Dates Next Due COVID-19 [...] encounter Miscellaneous Notes * Telephone Encounter - Radha Chaudhry MD - 12/27/2023 9:25 AM EDT Sorry to hear about her experience with the pharmacy. Regards to how many pills she can get and thecost for that prescription unfortunately we can not do anything about it and she should talked withthe pharmacy and also the insurance company moving forward. * Telephone Encounter - Emelyn Mott LPN - 12/20/2023 9:17 AM EDT Patient is aware and verbalizes understanding. She wanted PCP to know what [facility] did to her, She takes the brand Synthroid and pays out of pocket for brand name, she typically gets the manufactures bottle that has 90 tablets, she didn't pay attention to the bottle and when she got home she opened the bag and they gave her a regular prescription bottle and only 75 tablets and not the 90 tablets that was on the script. They told her that since PCP wrote for her to take 1 less pill a week they adjusted to 75 tablets. They still charged her the $40 out of pocket for the medication. * Telephone Encounter - Janay Travis LPN - 12/20/2023 9:09 AM EDT Attempted to call patient, there was no answer, left voicemail. When patient returns call, ok for ANTONIO to relay message, please refer to below documentation. If needed, can transfer to dedicated nurse line. * Telephone Encounter - Janay Travis LPN - 12/20/2023 9:08 AM EDT ----- Message from Radha Chaudhry MD sent at 12/18/2023 9:30 AM EDT ----- Recent TSH and free T4 is normal. Please find out how patient is doing clinically as she had symptoms. Continue current medications and let us know if any questions. * Telephone Encounter - Bobbi Looney LPN - 12/16/2023 11:37 AM EDT Results finalized. * Telephone Encounter - Claudia Alexander OSA - 12/16/2023 10:20 AM EDT Who is Requesting Test Results: Pt Primary Care Provider : Radha Chaudhry MD Tests Results Requested : Labs Date of Test : 12/02/2023 Location of Test: [facility] Ordering Provider: Chaudhry, Radha Aureliano, Pt asks if results were reviewed and does she continue current Thyroid instructions ? Patient has been made aware that the turnaround time for test results are typically as follows: Laboratory results = within 2-3 days ([facility]), 3-5 days (Non-[facility], ie. [facility]) Urine Cultures = within 2-3 days depending on growth within the culture Pathology results (biopsy results/PAP) = 1-2 weeks Radiology results = about 1 week Cologuard results = within 2 weeks from the shipment date COVID testing = about 24 hours documented in this encounter Plan of Treatment Upcoming Encounters Date Type Department Care Team (Late st Contact Info) Description 02/23/2024 10:00 AM EST Office Visit Neurology [facility] [address] [place] [address] Kyle Ragland MD [address] [place] [address] Health Maintenance Due Date Last Done Comments Hepatitis C Screening 1968 DTap/Tdap Vaccines (1 - Tdap) 1969 Colonoscopy 10/08/1995 Fecal Occult Blood Test 10/08/1995 Sigmoidoscopy 10/08/1995 Adult Wellness Visit 2016 Depression Screening 09/18/2021 09/18/2020 COVID-19 Vaccine ( season) 2023 01/13/2023, 05/13/2020, 04/22/2020 GFR 03/28/2024 09/26/2023, 08/05, 01/31/2023, Additional history exists Albumin/Creatinine Ratio 09/25/2024 024, 08/17/2022, 09/24/2021, Additional history exists CKD HGB USE SMARTSET 91798 09/25/202409/25, 08/22/2023, 12/02/2022, Additional history exists CKD PHOS USE SMARTSET 21117 09/25/202409/05, 09/28/2022, 09/24/2021, Additional history exists TSH 12/01/2024 12/02/2023, 09/05, 12/02/2022, Additional history exists Mammogram 12/25/2024 12/26/2023, 12/06, 12/24/2021, Additional history exists Cologuard 10/20/2025 10/20/2022, 10/05, [...] filedocumented as of this encounter Care Teams Pesticide Control Inspector Relationship Specialty Start Date End Date Radha Chaudhry MD [address] [place] [address] PCP - General Internal Medicine 04/16/14 documented as of this encounter
--- OUTSIDE RECORDS SUMMARY | 2024-01-09 23:54 | External Medical Summary | Summary of Care ---
Author Name Unknown Organization [facility] Address [address] [place] [address] Phone [phone] Care Team Providers Care Shotgun Shell Loading Machine Operator Name Role Phone Radha Chaudhry MD Primary Care Provider + Reason for Referral * Evaluate & Treat - Unlimited Visits (Within 30 days (routine)) - Authorized Specialty Diagnoses / Procedures Referred By Emmanuel tomlin Referred To Contact Rheumatology Diagnoses Sjogren's syndrome with keratoconjunctivitis sicca (HCC) Radha Chaudhry MD [address] [facility] [place] [address] Referral ID Status Reason Start Date Expiration Date Visits Requested Visits Authorized [id number] Authorized Specialty Services Required 10/04/2023 999 999 Question Answer Referral Priority Within 30 days (routine) Where should this appointment be scheduled? [facility] Reason for referral: Inflammatory arthritis/Autoimmune or Connective Tissue Diseases Comments Please eval for Sjogren. Needs yearly f/u. Thanks. Reason for Visit * Reason Comments Follow Up Encounter Details Date Type Department Care Team (Latest Contact Info) Description 10/04/2023 1:00 PM EDT Office Visit General Internal Medicine [facility] [place] [address] [place] [address] Radha Chaudhry MD [address] [facility] [place] [id number] HTN, goal below 140/90*; History of Graves' disease; Stage 3a chronic kidney disease; Hyperlipidemia with target LDL less than 160; Toxic diffuse goiter; Generalized osteoarthritis; Sjogren's syndrome with keratoconjunctivitis sicca (HCC) Allergies Active Allergy Reactions Criticality Noted Date Comments Iodine Hives Low 02/08/2023 Per Pt in [address] Scan and had a hive break out on her chest Simvastatin High 12/05/2008 Muscle pain documented as of this encounter (statuses as of 10/04/2023) Medications Medication Sig Dispensed Refills Start Date [...] as of this encounter (statuses as of 10/04/2023) Active Problems Problem Noted Date Diagnosed Date [...] as of this encounter (statuses as of 10/04/2023) Resolved Problems Problem Noted Date Diagnosed Date [...] as of this encounter (statuses as of 10/04/2023) Immunizations Name Administration Dates Next Due COVID-19 [...] on file documented as of this encounter Last Filed Vital Signs Vital Sign Reading Time Taken Comments Blood Pressure 110/60 10/04/2023 1:35 PM EDT Pulse 74 10/04/2023 12:51 PM EDT Temperature 36.6 C (97.9 F) 10/04/2023 12:51 PM E DT Respiratory Rate 16 10/04/2023 12:51 PM EDT Oxygen Saturation - - Inhaled Oxygen Concentration - - Weight 49.1 kg (108 lb 3.2 oz) 10/04/2023 12:51 PM EDT Height 167.6 cm (5' 5.98") 10/04/2023 12:51 PM E DT Body Mass Index 17.47 10/04/2023 12:51 PM EDT documented in this encounter Progress Notes * Radha Chaudhry MD - 10/04/2023 1:04 PM EDT Images from the original note were not included. History of Present Illness Abigail Jimenez is a 72 year old female with a history of recent diagnosis of Parkinson disease,hypothyroidism, history of Graves disease, history of hyperlipidemia, Sjogren's syndrome, osteoarthritis, hypertension for which she takes losartan, recently started on carbidopa levodopa by neurologist, comes here that presents for Follow Up Reviewed all the recent workup done and all the consultation notes. Patient does have low blood pressure today. States since started levodopa carbidopa for recent diagnosisof parkinson disease no major side effects or dizziness. Pt states she feels much better and feels her writing, button and unbuttoning , gait has improved since started the med. Doesn't prefer any vaccines. Pt has been seen derm and recently had skin biopsies and left wrist lesion is earlier stage melanoma and going for wide excision tomorrow am. Recent labs shows high lfts and is scheduled for US Abd in [place]. Recent thyroid labs shows low levels and was advised to cut down the med and skip Tuesday and repeatlabs in 6 to 8 weeks. Doesn't prefer seeing endocrine. Physical Exam Vitals: 10/04/23 1251 Temp: 36.6 C (97.9 F) Pulse: 74 Resp: 16 BP: 88/60 BMI: 17.47 BP Readings from Last 3 Encounters: 10/04/23 88/60 08/23/23 128/72 06/06/23 124/76 Wt Readings from Last 3 Encounters: 10/04/23 49.1 kg (108 lb 3.2 oz) 08/23/23 48.6 kg (107 lb 1.6 oz) 06/06/23 50 kg (110 lb 3.2 oz) BMI Readings from Last 3 Encounters: 10/04/23 17.47 kg/m 08/23/23 17.30 kg/m 06/06/23 17.80 kg/m Ht Readings from Last 3 Encounters: 10/04/23 1.676 m (5' 5.98") 06/06/23 1.676 m (5' 5.98") 12/02/22 1.676 m (5' 5.98") HEENT: PERRLA, EOMI, anicteric sclera, b/l tympanic membrane is pearly white, no erythema, no pharyngeal erythema, no lymphadenopathy, neck supple CVS: RRR, no murmurs, rubs or gallops, s1 s 2normal. RESP: clear to auscultation, no wheezing or crackles ABD: soft, NT/ND, BS normal, no hepatosplenomegaly EXT: no edema, cyanosis, peripheral pulses palpable bilaterally No large joint swelling, no redness, range of motion normal. Skin s/p biopsy area at left wrist area and rt ankle. Gait normal. Mood stable No focal weakness I have reviewed the following results: CMP and TSH Assessment and Plan HTN, goal below 140/90 (Primary) Discussed cutting down losartan to 50 mg daily down to the road if bp is still under 100. Repeat bp is 110/60. History of Graves' disease Stage 3a chronic kidney disease Avoid nsaids. Advised hydration. Hyperlipidemia with target LDL less than 160 On statin. Toxic diffuse goiter Generalized osteoarthritis Tylenol as needed. Sjogren's syndrome with keratoconjunctivitis sicca (HCC) Stable. Followed with Rheum. Wrap-Up Time: I spent a total of 30-39 minutes (exact time 30 mins) on the date of service in preparation, delivery, and documentation of the care provided to Abigail Jimenez excluding any time spent in the performance of separately billed services. documented in this encounter Nursing Notes * Ella Clancy LPN - 10/04/2023 12:50 PM EDT The patient has been properly identified by confirmation of name and date of . Chief Complaint Patient presents with Follow Up documented in this encounter Plan of Treatment Upcoming Encounters Date Type Department Care Team (Late st Contact Info) Description 02/23/2024 10:00 AM EST Office Visit Neurology [facility] [address] [place] [address] Kyle Ragland MD [address] [place] [address] Scheduled Referrals Name Type Priority Associated Diagnoses Orde r Schedule RHEUMATOLOGY REFERRAL OP Referral Within 30 days (routine) Sjogren's syndrome with keratoconjunctivitis sicca (HCC) Ordered: 10/04/2023 Health Maintenance Due Date Last Done Comments [...] Additional history exists CKD HGB USE SMARTSET 13210 09/25/202409/25, 08/22/2023, 12/02/2022, Additional history exists CKD PHOS USE SMARTSET 62049 09/25/202409/05, 09/28/2022, 09/24/2021, Additional history exists TSH [...] as of this encounter Visit Diagnoses Diagnosis HTN, goal below 140/90- Primary Unspecified essential hypertension History of Graves' disease Personal history of other endocrine, metabolic, and immunity disorders Stage 3a chronic kidney disease Hyperlipidemia with target LDL less than 160 Other and unspecified hyperlipidemia Toxic diffuse goiter Toxic diffuse goiter without mention of thyrotoxic crisis or storm Generalized osteoarthritis Generalized osteoarthrosis, unspecified site Sjogren's syndrome with keratoconjunctivitis sicca (HCC) documented in this encounter Care Teams Shotgun Shell Loading Machine Operator Relationship Specialty Start Date End Date Radha Chaudhry MD [address] [place] [address] [place] [address] PCP - General Internal Medicine 04/16/14 documented as of this encounter
--- OUTSIDE RECORDS SUMMARY | 2024-01-09 23:54 | External Medical Summary | Summary of Care ---
Author Name Unknown Organization [facility] Address [address] [place] [address] Phone [phone] Care Team Providers Care Air Conditioning Unit Tester Name Role Phone Radha Chaudhry MD Primary Care Provider + Reason for Visit * Reason Onset Date Comments Appointment 10/05/2023 Encounter Details Date Type Department Care Team (Late st Contact Info) Description 10/05/2023 Telephone General Internal Medicine [facility] [place] [address] [facility] [place] [address] Radha Chaudhry MD 200 [place] [address] Appointment Allergies Active Allergy Reactions Criticality Noted Date Comments Iodine Hives Low 02/08/2023 Per Pt in [address] Scan and had a hive break out on her chest Simvastatin High 12/05/2008 Muscle pain documented as of this encounter (statuses as of 10/05/2023) Medications Medication Sig Dispensed Refills Start Date [...] as of this encounter (statuses as of 10/05/2023) Active Problems Problem Noted Date Diagnosed Date [...] as of this encounter (statuses as of 10/05/2023) Resolved Problems Problem Noted Date Diagnosed Date [...] as of this encounter (statuses as of 10/05/2023) Immunizations Name Administration Dates Next Due COVID-19 [...] 02/23/2024 10:00 AM EST Office Visit Neurology [facility] [place] [address] [place] [address] Kyle Ragland MD [address] [facility] [place] [address] Health Maintenance Due Date Last Done [...] Additional history exists CKD HGB USE SMARTSET 61828 09/25/202409/25, 08/22/2023, 12/02/2022, Additional history exists CKD PHOS USE SMARTSET 85539 09/25/202409/05, 09/28/2022, 09/24/2021, Additional history exists TSH [...] filedocumented as of this encounter Care Teams Air Conditioning Unit Tester Relationship Specialty Start Date End Date Radha Chaudhry MD 200 [place] [address] PCP - General Internal Medicine 04/16/14 documented as of this encounter
--- OUTSIDE RECORDS SUMMARY | 2024-01-09 23:54 | External Medical Summary ---
Author Name Unknown Address Unknown Organization [facility] [address] [place] [address] Laboratory Report Ordering Provider Test Date Status MIKE LIANG 12/02/2023 16:20:08 Final Observation Date Value Abnormality Reference (Units ) Status T4, Free 12/02/2023 16:20:08 1.6 0.9-1.7 (n g/dL) Final Performing Location [facility] [address] [facility] [address]
--- OUTSIDE RECORDS SUMMARY | 2024-01-09 23:54 | External Medical Summary | Summary of Care ---
Author Name Unknown Organization [facility] Address [address] [place] [address] Phone [phone] Care Team Providers Care Mechanical Insulator Name Role Phone Garth Chaudhry MD Primary Care Provider + Reason for Visit * Reason Onset Date Comments Test Results Lab 09/27/2023 thyroid Encounter Details Date Type Department Care Team (Late st Contact Info) Description 09/27/2023 Refill General Internal Medicine [facility] [place] [address] [facility] [place] [address] Garth Chaudhry MD [address] [place] [address] Postablative hypothyroidism*; Low TSH level; High serum [...] Notes * Telephone Encounter - Jim Baugh, [facility] - 09/29/2023 1:51 PM EDT Patient informed of dose decrease. Plans to skip dose every Tuesday. Will get repeat thyroid labs inappx 8 weeks, declined lab appt. Sebastián Otero.Ph. Clinical Pharmacist [facility] [address] [place] [address], [address] [place] [address] MC: [id number] [id number] 09/29/2023,1:52 PM * Telephone Encounter - Garth [...] Thanks. * Telephone Encounter - Jim Baugh [facility] - 09/27/2023 6:26 AM EDT TSH [...] Clinical Pharmacist [facility]) [address] [place] [address], [facility] [address]: [phone] 09/27/2023,6:26 AM documented in this encounter Plan of Treatment Upcoming Encounters Date Type Department Care Team (Late st Contact Info) Description 10/04/2023 1:00 PM EDT Office Visit General Internal Medicine [facility] [address] [place] [address] Garth Chaudhry MD [address] [place] [address] 02/23/2024 10:00 AM EST Office Visit Neurology [facility] [address] [place] [address] Kyle Ragland MD [address] [place] [address] Scheduled Orders Name Type Priority [...] Additional history exists CKD HGB USE SMARTSET 83456 09/25/202409/25, 08/22/2023, 12/02/2022, Additional history exists CKD PHOS USE SMARTSET 71059 09/25/202409/05, 09/28/2022, 09/24/2021, Additional history exists TSH [...] (T4) documented in this encounter Care Teams Mechanical Insulator Relationship Specialty Start Date End Date Garth Chaudhry MD [address] [place] [address] PCP - General Internal Medicine 04/16/14 documented as of this encounter
--- OUTSIDE RECORDS SUMMARY | 2024-01-09 23:54 | External Medical Summary | Summary of Care ---
Author Name Unknown Organization [facility] Address [address] [place] [address] Phone [phone] Care Team Providers Care Employee Relations Assistant Name Role Phone Radha Chaudhry MD Primary Care Provider + Encounter Details Date Type Department Care Team (Late st Contact Info) Description 10/24/2023 Result Scan Unspecified Department <No scans attached> Allergies Active Allergy Reactions Criticality Noted Date Comments Iodine Hives Low 02/08/2023 Per Pt in [address] Scan and had a hive break out on her chest Simvastatin High 12/05/2008 Muscle pain documented as of this encounter (statuses as of 10/27/2023) Medications Medication Sig Dispensed Refills Start Date [...] as of this encounter (statuses as of 10/27/2023) Active Problems Problem Noted Date Diagnosed Date [...] as of this encounter (statuses as of 10/27/2023) Resolved Problems Problem Noted Date Diagnosed Date [...] as of this encounter (statuses as of 10/27/2023) Immunizations Name Administration Dates Next Due COVID-19 [...] on file documented as of this encounter Plan of Treatment Upcoming Encounters Date Type Department Care Team (Late st Contact Info) Description 02/23/2024 10:00 AM EST Office Visit Neurology [facility] [address] [place] [address] Kyle Ragland MD [address] [place] [address] Health Maintenance Due Date Last [...] Additional history exists CKD HGB USE SMARTSET 56896 09/25/202409/25, 08/22/2023, 12/02/2022, Additional history exists CKD PHOS USE SMARTSET 71574 09/25/202409/05, 09/28/2022, 09/24/2021, Additional history exists TSH [...] Not on filedocumented as of this encounter Procedures Procedure Name Priority Date/Time Associated Diagnosis Comments RADIOLOGY SCANNED RESULT 10/24/2023 documented in this encounter Results * RADIOLOGY SCANNED RESULT (10/24/2023) 10/24/2023 No Physician Data Unknown DIAGNOSTIC RAD IOLOGY SERVICES documented in this encounter Care Teams Employee Relations Assistant Relationship Specialty Start Date End Date Radha Chaudhry MD [address] [facility] [place] [address] PCP - General Internal Medicine 04/16/14 documented as of this encounter
--- OUTSIDE RECORDS SUMMARY | 2024-01-09 23:54 | External Medical Summary | Summary of Care ---
Author Name Unknown Organization [facility] Address [address] [place] [address] Phone [phone] Care Team Providers Care Travel Professional Name Role Phone Radha Chaudhry MD Primary Care Provider + Reason for Visit * Reason Comments Outpatient Testing Encounter Details Date Type Department Care Team (Late st Contact Info) Description 12/02/2023 4:20 PM EDT Laboratory Laboratory [address] [place] [id number] [facility] [address] [place] [address] Postablative hypothyroidism; Low TSH level; High serum thyroxine (T4) [...] AM EST Office Visit Neurology [facility] [place] [address] [place] [address] Kyle Ragland MD [address] [place] [address] Pending Results Name Type Priority Associated Diagnoses Date /Time TSH Lab Routine Postablative hypothyroidism Low TSH level 12/02/2023 4:20 PM EDT T4, FREE Lab Routine Postablative hypothyroidism High serum thyroxine (T4) 12/02/2023 4:20 PM EDT Health Maintenance Due Date Last Done Comments [...] Additional history exists CKD HGB USE SMARTSET 90585 09/25/202409/25, 08/22/2023, 12/02/2022, Additional history exists CKD PHOS USE SMARTSET 74727 09/25/202409/05, 09/28/2022, 09/24/2021, Additional history exists TSH [...] of this encounter Visit Diagnoses Diagnosis Postablative hypothyroidism Other postablative hypothyroidism Low TSH level Nonspecific abnormal results of thyroid function study High serum thyroxine (T4) documented in this encounter Care Teams Travel Professional Relationship Specialty Start Date End Date Radha Chaudhry MD [address] [place] [address] PCP - General Internal Medicine 04/16/14 documented as of this encounter
--- OUTSIDE RECORDS SUMMARY | 2024-01-09 23:54 | External Medical Summary | Continuity of Care Document ---
Author Name Unknown Organization [facility] [address] [facility] [address] [id number] Care Team Providers Care Hotel Or Motel Room Service Supervisor Name Role Phone Radha Chaudhry Primary Care Physician [phone] Encounter [facility] [id number] Date(s): 10/12/23 - 10/12/23 [facility] [address] [facility] [address] [place] [address] [id number] Encounter Diagnosis Malignant melanoma of left upper extremity(Discharge Diagnosis) - 10/12/23 Discharge Disposition: Home or Self Care Attending Physician: MD Sophie, Elizabeth Allergies, Adverse Reactions, Alerts Substance Criticality Severity Reaction Reaction Severity Status statins pain Active Medications calcium-vitamin D extended release Start: 06/23/21 10:10:00 AM EDT, 1 tab, PO, Daily Start Date: 06/23/21 Status: Ordered carbidopa-levodopa 25 mg-100 mg oral tablet Start: 09/13/23 2:27:00 PM EDT Start Date: 09/13/23 Status: Ordered ezetimibe 10 mg oral tablet Start: 10/15/20 8:38:00 AM EDT, 1 tab, PO, Daily Start Date: 10/15/20 Status: Ordered Floranex oral granule TAKE 1 PACKET BY MOUTH IN THE MORNING, AT NOON, AND IN THE EVENING WITH MEALS Start Date: 01/06/23 Status: Ordered losartan Start: 01/15/21 12:09:00 PM EST, 100 mg =, PO, Daily Start Date: 01/15/21 Status: Ordered Metamucil Start: 10/05/23 8:41:00 AM EDT Start Date: 10/05/23 Status: Ordered Restasis 0.05% ophthalmic emulsion Start: 09/13/23 2:27:00 PM EDT Start Date: 09/13/23 Status: Ordered Synthroid Start: 11/19/20 1:13:00 PM EDT, 75 mcg =, PO, Daily Start Date: 11/19/20 Status: Ordered Vitamin B Complex Start: 06/23/21 10:10:00 AM EDT, 1 tab, PO, Daily Start Date: 06/23/21 Status: Ordered Mental Status 10/12/23 Barriers to Learning one year None evide nt Mandatory Health Literacy Documentation Yes Health Literacy Communication Barriers N ever Primary Language Jamaican Problem List Condition Confirmation Course Effective Dates Status Health St atus Informant Multiple nevi Confirmed Active Changing skin lesion Confirmed Active Graves disease Confirmed Active History of breast cancer in female Confirmed Active Melanoma Confirmed Active Seborrheic keratoses Confirmed Active Diagnosis Diagnosis Type Effective Dates Health Status Cl inical Service Informant Malignant melanoma of left upper extremity Discharge Diagnosis 10/12/23 Non-Specified Procedures Procedure Date Related Diagnosis Body Site Status Electrodesiccation with curettage 10/05/23 Completed Excision 1 10/05/23 Completed Shave biopsy and cauterizati on of skin 2 09/13/23 Completed Excision 02/17/23 Completed Shave biopsy of skin 01/06/23 Comp leted Melanoma 12/03/20 Completed Shave biopsy of skin 10/15/20 Comp leted 1Staged 21. left arm above melanoma scalp 2. left back 3. right post lower leg Social History Social History Type Response Smoking Status Never smoked cigaret kaylynn Sex Female Sex Representation Female (finding) Implantable Device List Procedure Provider Procedure Date Device Type Site Unknown Unknown 12/03/20 Unknown Unknown Device Identifier Serial Number Lot or Batch Number Manufacturing Date Expiration Date Distinct Identification Code MRI Safety Implantable Status Assigning Authority Unknown Unknown n/a Unknown 11/03/24 Unknown Unknown Active Unkn own Dermatology Outpt Proc * MD Sophie, Elizabeth: PERFORM, MODIFY Event Display: Dermatology Outpt Proc Authored Date: [id number] Name:CARLA LOU Patient Number:[id number] :[id number] Date of Service:10/12/2023 Thepatient is a 73 yo CF,referred by Dr. Jones (seen by her in Dr. Cooper's absence), here for reconstruction after excision of melanoma Mina forearm. PREOPERATIVE DIAGNOSIS:melanoma, BD:0.1mm, no ulceration, Mitotic rate: 0/mm2 , pT1a POSTOPERATIVE DIAGNOSIS: Same Diagnosis 1.Skin, left arm (distal forearm), excision: -Scar and residual melanoma in situ, completely excised(see Comment): Comment: In the 1 B 6:00 tip section there is an atypical junctional melanocytic proliferation best seen in the Melan-A sections, which I suspect is due to actinic damage and/or an adjacent atypical lentigo. Diagnosis 1.Skin, left arm above melanoma scar, shave biopsy: - Melanoma lentiginous type (see synoptic report) Comment: Atypical melanocytes extend to the lateral margin of resection. Synoptic Report Specimen 1 Type: lentiginous Breslow depth: 0.1 mm Mitotic rate: 0/mm2 Vertical growth phase: Not identified Ulceration: Absent Vascular invasion: Not seen Lymphatic invasion: Not seen Spindle cell component: Absent Neurotropism: Absent Regression: Absent Inflammation/tumor infiltrating lymphocytes: Absent Pre-existing nevus: Absent Satellitosis: Absent Peripheral margins: Involved Deep margins: Uninvolved Stage: pT1a LOCATION:left arm above melanoma scar OPERATION PERFORMED: Intermediate layered closure after staged excision EXCISIONAL DEFECT SIZE (INCLUDING MARGINS): 2.7 cm (defect size s/p stage 1 excision) FINAL SUTURE LINE LENGTH: 5.2 cm SUTURES: 4-0 Monocryl,4-0 VicrylRapide SURGEON: Elizabeth Barrios MD ASSISSTANT:Alicia Lewis PA-C INDICATIONS: Reconstruction s/p excision of biopsy provenmelanoma, BD:0.1mm, no ulceration, Mitotic rate: 0/mm2 , pT1a OPERATION: The patient was taken to the surgical suite where the benefits and risks of the procedure were explained. We discussed pathology results including atypical melanocytic proliferation that is felt to be due tobackground actinic damage or lentigo. Discussed this was identifiedat th e 6 o'clock position which will be excised in the inferior standing cone today.Also reinforced importance of close clinical monitoringwith skin exams as scheduled. Patient voiced understanding and agrees. After time was given for questions, a signed consent was obtained. The resultant defect was examined and it was decided that a layered linear closure would best maintain appropriate function of the region without causing distortion of nearby anatomic structures, reduce postoperative morbidity, healing time and risk of infection. It was also required to restore function, eliminatedead space, relieve tension, prevent deformity, and approximate the edges of the defect, which exten ded to the deep subcutaneous tissues. Additionally, the defect is being reconstructed with the goalto approximate its appearance prior to excision. 0.5% lidocaine plus epinephrine plus bicarbonate was infiltrated until adequate anesthesia was obtained. Approximately6 ml were given. The surgical defect and surrounding skin were prepped and draped with sterile towels to ensure a sterile field.The long axis of the closure was oriented so as to parallel the relaxed skin tension lines as much as possible to minimize any pull or distortion on nearby anatomic structures. Linear closure of the circular excisional defect created bilateral incipient standing cones at each pole of the excision, peripheral wound edges freshened with 15 blade. The excision was then extended bilaterally at each end by the removal of this redundant tissue as [place] triangles. Hemostasis was achieved withspot electrocautery and suture ligation as needed. The defect was then closed in a layered fashion consisting of absorbable sutures in the deep subcutaneous plane followed by separate closure of the superficial subcutaneous tissue and skin with superficial cutaneous sutures. Layered closure was required to eliminate space, relieve tension, prevent deformity, and approximate the edges of the defect which extended to the deep subcutaneous tissues. A pressure dressing was placed with petrolatum ointment, non-stick pad, gauze, and paper tape. Estimated blood loss was less than 5 ml and there were no complications. The patient received both written and verbal wound care instructions and left the Dermatology Clinic in good condition. The patient will follow-upPRN for above and as scheduled for skin exam with Dr. Cooper. Images 2023-10-12 08:41:12 2023-10-12 09:05:26 Electronic Signature on File CC: Dallas Cooper MD [address] [place] [address] [address] [place] [address] Electronically Reviewed/Signed by: Elizabeth Barrios MD Author Signature Dt/Tm:10/12/2023 12:33 PM Department of Dermatology CS Patient Care team information Care Team Personnel Name: MD Chaudhry Manisha N Position: Referring DIRECT Member Role: Primary Care Provider Address: [address] Name: Rupinder Larry Position: HIS Supervisor_P Member Role: HIS Lifetime Care Team Related Persons Name: JUWNA LOU
--- OUTSIDE RECORDS SUMMARY | 2024-01-09 23:54 | External Medical Summary | Summary of Care ---
Author Name Unknown Organization [facility] Address [address] [place] [address] Phone [phone] Care Team Providers Care Mounter Clarinets Name Role Phone Radha Chaudhry MD Primary Care Provider + Reason for Referral * Evaluate & Treat - Unlimited Visits (Within 30 days (routine)) - Authorized Specialty Diagnoses / Procedures Referred By Emmanuel tomlin Referred To Contact Rheumatology Diagnoses Sjogren's syndrome with keratoconjunctivitis sicca (HCC) Radha Chaudhry MD [address] [facility] [place] [address] Referral ID Status Reason Start Date Expiration Date Visits Requested Visits Authorized [id number] Authorized Specialty Services Required 10/04/2023 999 999 [...] [place] [address] [place] [address] Radha Chaudhry MD [address] [facility] [place] [phone] HTN, goal below 140/90*; History of Graves' [...] and is scheduled for US Abd in [place]. Recent thyroid labs shows low levels and [...] 02/23/2024 10:00 AM EST Office Visit Neurology [facility] [address] [place] [address] Kyle Ragland MD [address] [place] [address] Scheduled Referrals Name Type Priority Associated Diagnoses [...] Additional history exists CKD HGB USE SMARTSET 63512 09/25/202409/25, 08/22/2023, 12/02/2022, Additional history exists CKD PHOS USE SMARTSET 91014 09/25/202409/05, 09/28/2022, 09/24/2021, Additional history exists TSH [...] (HCC) documented in this encounter Care Teams Mounter Clarinets Relationship Specialty Start Date End Date Radha Chaduhry MD [address] [place] [address] [place] [address] PCP - General Internal Medicine 04/16/14 documented as of this encounter
--- OUTSIDE RECORDS SUMMARY | 2024-01-09 23:54 | External Medical Summary ---
Author Name Unknown Address Unknown Organization K01:[facility] - [address] [place] [address] Laboratory Report Ordering Provider Test Date Status MIKE LIANG 12/02/2023 16:20:08 Final Observation Date Value Abnormality Reference (Units ) Status TSH 12/02/2023 16:20:08 0.56 0.27-4.20 (uIU/mL) Final Performing Location [facility] [address] [facility] [address]
--- OUTSIDE RECORDS SUMMARY | 2024-01-09 23:54 | External Medical Summary | Summary of Care ---
Author Name Unknown Organization [facility] Address [address] [place] [address] Phone [phone] Care Team Providers Care Sewage Plant Attendant Name Role Phone Radha Chaudhry MD Primary Care Provider + Reason for Referral * Evaluate & Treat - Unlimited Visits (Within 30 days (routine)) - Authorized Specialty Diagnoses / Procedures Referred By Emmanuel tomlin Referred To Contact Rheumatology Diagnoses Sjogren's syndrome with keratoconjunctivitis sicca (HCC) Radha Chaudhry MD [address] [facility] [place] [address] Referral ID Status Reason Start Date Expiration Date Visits Requested Visits Authorized [id number] Authorized Specialty Services Required 10/04/2023 999 999 [...] [place] [address] [place] [address] Radha Chaudhry MD [address] [facility] [place] [address] HTN, goal below 140/90*; History of Graves' [...] Sign Reading Time Taken Comments Blood Pressure 88/60 10/04/2023 12:51 PM EDT Pulse 74 10/04/2023 12:51 PM [...] and is scheduled for US Abd in [place]. Recent thyroid labs shows low levels and [...] 02/23/2024 10:00 AM EST Office Visit Neurology [facility] [address] [place] [address] Kyle Ragland MD [address] [place] [address] Scheduled Referrals Name Type Priority Associated Diagnoses [...] Additional history exists CKD HGB USE SMARTSET 51555 09/25/202409/25, 08/22/2023, 12/02/2022, Additional history exists CKD PHOS USE SMARTSET 26471 09/25/202409/05, 09/28/2022, 09/24/2021, Additional history exists TSH [...] (HCC) documented in this encounter Care Teams Sewage Plant Attendant Relationship Specialty Start Date End Date Radha Chaudhry MD [address] [place] [address] [place] [address] PCP - General Internal Medicine 04/16/14 documented as of this encounter
--- OUTSIDE RECORDS SUMMARY | 2024-01-09 23:54 | External Medical Summary | Summary of Care ---
Author Name Unknown Organization [facility] Address [address] [place] [address] Phone [phone] Care Team Providers Care Surveillance Supervisor Name Role Phone Radha Chaudhry MD Primary Care Provider + Encounter Details Date Type Department Care Team (Late st Contact Info) Description 12/26/2023 Result Scan Unspecified Department <No scans attached> Allergies Active Allergy Reactions Criticality Noted Date Comments Iodine Hives Low 02/08/2023 Per Pt in [address] Scan and had a hive break out on her chest Simvastatin High 12/05/2008 Muscle pain documented as of this encounter (statuses as of 12/27/2023) Medications Medication Sig Dispensed Refills Start Date [...] as of this encounter (statuses as of 12/27/2023) Active Problems Problem Noted Date Diagnosed Date [...] as of this encounter (statuses as of 12/27/2023) Resolved Problems Problem Noted Date Diagnosed Date [...] as of this encounter (statuses as of 12/27/2023) Immunizations Name Administration Dates Next Due COVID-19 [...] 02/23/2024 10:00 AM EST Office Visit Neurology [facility] [address] [place] [address] Kyle Ragland MD [address] [place], [place] [...] Additional history exists CKD HGB USE SMARTSET 92555 09/25/202409/25, 08/22/2023, 12/02/2022, Additional history exists CKD PHOS USE SMARTSET 35822 09/25/202409/05, 09/28/2022, 09/24/2021, Additional history exists TSH 12/01/2024 12/02/2023, 09/05, 12/02/2022, Additional history exists Mammogram 12/26/2024 12/26/2023, 12/06, 12/24/2021, Additional history exists Cologuard [...] Date/Time Associated Diagnosis Comments RADIOLOGY SCANNED RESULT 12/26/2023 documented in this encounter Results * RADIOLOGY SCANNED RESULT (12/26/2023) 12/26/2023 No Physician Data Unknown DIAGNOSTIC RAD IOLOGY SERVICES documented in this encounter Care Teams Surveillance Supervisor Relationship Specialty Start Date End Date Radha Chaudhry MD [address] [place] [address] PCP - General Internal Medicine 04/16/14 documented as of this encounter
--- OUTSIDE RECORDS SUMMARY | 2024-01-09 23:54 | External Medical Summary | Continuity of Care Document ---
Author Name Unknown Organization [facility] [address] [facility] [address] [id number] Care Team Providers Care Paperhanger Apprentice Name Role Phone Radha Chaudhry Primary Care Physician [phone] [id number] Date(s): 10/05/23 - 10/05/23 [facility] [address] [facility] [address] [id number] Encounter Diagnosis Basal cell carcinoma of right lower leg(Discharge Diagnosis) - 10/05/23 Malignant melanoma of left upper extremity(Discharge Diagnosis) - 10/05/23 Discharge Disposition: Home or Self Care Attending Physician: MD Barrios Cassandra Referring Physician: MD Robert, Beckie Pineda Allergies, Adverse Reactions, Alerts Substance Criticality Severity [...] Start Date: 06/23/21 Status: Ordered Mental Status 10/05/23 Barriers to Learning one year None evide nt Mandatory Health Literacy Documentation Yes Health Literacy Communication Barriers N ever Primary Language Telugu Problem List Condition Confirmation Course Effective Dates Status Health St atus Informant Multiple nevi Confirmed Active Changing skin lesion Confirmed Active Graves disease Confirmed Active History of breast cancer in female Confirmed Active Melanoma Confirmed Active Seborrheic keratoses Confirmed Active Diagnosis Diagnosis Type Effective Dates Health Status Cl inical Service Informant Basal cell carcinoma of right lower leg Discharge Diagnosis 10/05/23 Malignant melanoma of left upper extremity Discharge Diagnosis 10/05/23 Non-Specified Procedures Procedure Date Related Diagnosis Body [...] Event Display: Dermatology Outpt Proc Authored Date: [id number] Name:CARLA LOU Patient Number:[id number] :1950 Date of Service:10/05/2023 The patient is a 72 yo CF, referred by Dr. Jones for treatment of a biopsy proven melanoma. LOCATION:left arm PREOPERATIVE DIAGNOSIS:Melanoma, BD: 0.1 mm (focal invasion), Ulceration: absent, mitotic rate: 0/mm2, pT1a Diagnosis 1.Skin, left arm above melanoma scar, shave biopsy: - Melanoma (see synoptic report) Comment: Atypical melanocytes extend [...] margins: Involved Deep margins: Uninvolved Stage: pT1a POSTOPERATIVE DIAGNOSIS: Same PREOPERATIVE LESION SIZE: 1.5 cm OPERATION PERFORMED: Disc excision as stage one of a staged excision for melanoma EXCISIONAL DEFECT SIZE (INCLUDING MARGINS): 2.7 cm SURGEON: Elizabeth Barrios MD INDUSTRIAL MECHANIC:Alicia Lewis PA-C INDICATIONS: Stage 1 of staged excision for melanoma OPERATION: The patient was taken to the surgical suite, discussed treatment options including wide local excision vs. staged excision, the benefits and risks ofeach procedure was explained. After time was given for questions, a signed consent was obtained to proceed with stages excision. The patient was then placed on the operating table in the supine position. The clinical borders of the pigmented lesion were marked with the aid of a Wood's lamp using a surgical marking pen. The proposed excision area was prepped with an antiseptic solution and draped in the usual sterile fashion. 0.5% lidocaine plus epinephrine plus bicarbonate was infiltrated until adequate anesthesia was obtained. Approximately 3 ml were given. A #15 blade was used to excise the lesion with6 mm margins to include the deep subcutaneous fat, superficial muscular fascia centrally. The disc excision was then completed using the same blade and a pair of small curved Iris scissors. Hemostasis was obtained with electrocoagulation. The specimen was marked with a suture at the 12 o'clock position and each quadrant was marked with ink per our standard protocol, note: 6:00 margin includes portion ofscar from prior melanoma excision repaired with a graft. The specimen was placed in a formalin-filled container labeled with the patient's identifying data and sent to pathology for examination. A Xeroform gauze was sutured into placed using 5-0 Ethilon, followed by as pressure dressing. Estimated blood loss was less than5 ml and there were no complications. The patient received both written and verbal wound care instructions and left the Dermatology Clinic in good condition. The patient is to return to clinic on10/11/24for further resection of any residual melanoma or for a reconstruction if the margins are deemed clear by pathology. Images 2023-10-05 09:01:48 Electronic Signature on File CC: Beckie Jones MD [address] [facility] [address] [place] [address] Electronically Reviewed/Signed by: Elizabeth Barrios MD Author Signature Dt/Tm:10/05/2023 11:29 PM Department of Dermatology CS * MD Sophie, Elizabeth: PERFORM, MODIFY, MODIFY Event Display: Dermatology Outpt Proc Authored Date: [id number] DERMATOLOGY OUTPATIENT PROCEDURE NOTE Name: CARLA LOU Patient Number: [id number] : 1950 Date of Service: 10/05/2023 ED&C PREOPERATIVE DIAGNOSIS: Superficial Basal cell carcinoma POSTOPERATIVE DIAGNOSIS: Same LOCATION: Right posterior lower leg PREOPERATIVE LESION SIZE: 1.0cm DEFECT SIZE AFTER 1st PASS: 1.4cm OPERATION PERFORMED: Electrodesiccation and curettage destruction in a 3-cycle fashion. SURGEON: Elizabeth Barrios MD INDICATIONS: Malignancy OPERATION: The patient was taken to the surgical suite where the benefits and risks of the procedure were explained. After time was given for questions, a signed consent was obtained. The proposed curettage area was prepped with an antiseptic solution and draped in the usual sterile fashion. 0.5% lidocaine plus epinephrine buffered with bicarbonate was infiltrated until adequate anesthesia was obtained. Approximately 3 ml were given. The lesion was then curetted to remove all visible portions of the tumor. Electrodesiccation was performed at the base and peripheral edges of the newly formed ulcer. The curettage and electrodesiccation were twice repeated. A pressure dressing was placed with p etrolatum ointment, non-stick pad, gauze and paper tape. Estimated blood loss was less than 5 ml and there were no complications. The patient received both written and verbal wound care instructions and left the Dermatology Clinic in good condition. Call with questions or concerns. Follow up as scheduled. Patient in agreement with plan. I, Alicia Lewis PA-C, personally scribed the services dictated to me by Elizabeth Barrios MD in this documentation on 10/05/2023 11:37:31 for patient, Name: CARLA LOU Patient Number: [id number] : 1950 . Alicia Lewis PA-C, S I, Elizabeth Barrios MD, personally examined the patient, performed waggoner elements of the procedure and was available at all times for intraoperative consultation and assistance. Letty Garciated as my operating room surgical technologist and scribe, I agree with the above documentation Electronic Signature on File Electronically Reviewed/Signed by: Elizbaeth Barrios MD Author Signature Dt/Tm:10/05/2023 01:02 PM Department of Dermatology CS /[facility] * Bobbi Smith: TRANSCRIBE, PERFORM MD Garett, Juni Ramsey: VERIFY Event Display: DP Gross Authored Date: [id number] 1. Received in formalin labeled with patient's name, medical record number and "left arm (distal forearm)" is an ovoid resection of skin with underlying subcutaneous tissue measuring 1.8 x 1.8 cm andexcised to a depth of 0.2 cm. The epidermal surface is santos and wrinkled and displays a slightly raised, santos-pink, crusty lesion that encompassing an area measuring approximately 1.3 x 1.0 cm. A suture is present at one tip designating 12:00 per requisition. The lesion comes to within approximately 0.2 cm of the 12:00 margin, 0.3 cm of the 3:00 margin, 0.4 cm of the 6:00 margin, and 0.4 cm of the 9:00 margin. The specimen is received inked as follows: 12:00 to 3:00 yellow, 3:00 to 6:00 blue, 6:00 to 9:00 red, 9:00 to 12:00 green. A diagram is provided by the clinician. The deep margin is inkedblack by the prosector. The specimen is serially sectioned and entirely submitted. SHARATH-URED stain is added to each block. The above measurements may be up to one-third smaller than actual size due to contraction during fixation process. Block summary: 1A: 12:00 tip; 1B: 6:00 tip; 1C: 11-1:00; 1D: 10-2:00; 1E: 9- 3:00; 1F: 8-4:00; 1-5:00 (SCW) * Bobbi Smith: TRANSCRIBE, REGLA Bajwa MD, Klaus F: VERIFY Event Display: DP Clinical History Authored Date: Stage 1 of staged excision melanoma, prior biopsy [id number], suture at 12:00 and inked per protocol LISBET Pre-operative diagnosis: Signs and symptoms: _ left arm (distal forearm) Additional specimen information: _ Special instructions: Note: scar at 6:00 pm from prior melanoma excision repaired with graft * MD Bajwa Klaus F: TRANSCRIBE, PERFORM, VERIFY Event Display: DP Micro Authored Date: Sections demonstrate an excision of skin. The center of the excision there is scar and melanocytic hyperplasia. Evaluate for residual melanoma, Melan-A stains were performed on all sections. Stains demonstrate confluence of melanocytes within the epidermis adjacent and overlying the scar. * Bobbi Smith: REGLA SAEED MD, Klaus F: VERIFY Event Display: DP Disclaimer Authored Date: The following statement applies to flow cytometry, immunohistochemical, histochemical, molecular genetics, immunofluorescence, and in situ hybridization assays. These tests were developed and their performance characteristics determined by a [facility] Department of Pathology Laboratory. All controls show appropriate reactivity. Not all tests have been cleared or approved by the U.S. Food and Drug Administration. The FDA has determined that such clearance or approval is not necessary. For decalcified specimen types, focused validation may have been done that may or may not apply to all decalcified specimen types. Results should be interpreted with caution. * MD Bajwa Klaus F: TRANSCRIBE, PERFORM, VERIFY Event Display: DP Dx Authored Date: 1.Skin, left arm (distal forearm), excision: -Scar and residual melanoma in situ, completely excised(see Comment): Comment: In the 1 B 6:00 tip section there is an atypical junctional melanocytic proliferation bestseen in the Melan-A sections, which I suspect is due to actinic damage and/or an adjacent atypical lentigo. Juni Bajwa MD (Electronically signed by) Verified: 2023 14:25 EDT Performing Location: [facility] Patient Care team information Care Team Personnel Name: MD Isidoro, [facility] Dejah Position: Referring DIRECT Member Role: Primary Care Provider Address: [address] [place] [address] Name: Rupinder Larry Position: HIS Supervisor_P Member Role: HIS Lifetime Care Team Related Persons Name: JUWAN LOU
--- OUTSIDE RECORDS SUMMARY | 2024-01-09 23:54 | External Medical Summary | Summary of Care ---
Author Name Unknown Organization [facility] Address [address] [place] [address] Phone [phone] Care Team Providers Care Windows Server Specialist Name Role Phone Radha Chaudhry MD Primary Care Provider + Encounter Details Date Type Department Care Team (Late st Contact Info) Description 12/27/2023 Orders Only General Internal Medicine [facility] [place] [address] [facility] [place] [address] Radha Chaudhry MD 200 [facility] [place] [address] Allergies Active Allergy Reactions Criticality Noted Date [...] 02/23/2024 10:00 AM EST Office Visit Neurology [facility] [address] [place] [address] Kyle Ragland MD [address] [place] [address] Health Maintenance Due Date Last [...] Additional history exists CKD HGB USE SMARTSET 56761 09/25/202409/25, 08/22/2023, 12/02/2022, Additional history exists CKD PHOS USE SMARTSET 31551 09/25/202409/05, 09/28/2022, 09/24/2021, Additional history exists TSH [...] Procedure Name Priority Date/Time Associated Diagnosis Comments MAMMOGRAM SCREENING BILATERAL Routine 12/26/2023 documented in this encounter Results * MAMMOGRAM SCREENING BILATERAL (12/26/2023) Anatomical Region Laterality Modality Breast Bilateral Other 12/26/2023 Alex GORDON RAD MAMMOGRAPHY documented in this encounter Care Teams Windows Server Specialist Relationship Specialty Start Date End Date Radha Chaudhry MD [address] [place] [address] PCP - General Internal Medicine 04/16/14 documented as of this encounter
--- OUTSIDE RECORDS SUMMARY | 2024-01-09 23:54 | External Medical Summary | Summary of Care ---
Author Name Unknown Organization [facility] Address [address] [place] [address] Phone [phone] Care Team Providers Care Oyster Picker Name Role Phone Radha Chaudhry MD Primary Care Provider + Reason for Visit * Reason Comments eRx-Medication Refill Encounter Details Date Type Department Care Team (Late st Contact Info) Description 12/09/2023 Refill Neurology, [place] [address] [place] [address] Kyle Ragland MD [address] [place] [address] Parkinson's disease without dyskinesia or fluctuating manifestations (HCC) Allergies Active Allergy Reactions Criticality Noted Date Comments Iodine Hives Low 02/08/2023 Per Pt in [address] Scan and had a hive break out on her chest Simvastatin High 12/05/2008 Muscle pain documented as of this encounter (statuses as of 12/09/2023) Medications Medication Sig Dispensed Refills Start Date End Date Status B COMPLEX OR TABSIndications:Tox ic diffuse goiter 1 tab daily 0 07/01/2004 Active Ventolin HFA 108 (90 Base) MCG/ACT Inhalation Aerosol SolutionIndications :Pneumonia of both lungs due to infectious organism, unspecified part of lung Inhale 2 Puffs by mouth in the morning and 2 Puffs at noon and 2 Puffs in the evening and 2 Puffs before bedtime. 18 g 2 12/21/2022 Active Spacer/Aero-Holding Chambers DeviceIndications:P neumonia of both lungs due to infectious [...] Active Losartan Potassium 100 MG Oral Tablet (Cozaar)Indications :HTN, goal below 140/90 TAKE 1 TABLET BY MOUTH EVERY DAY IN THE MORNING 90 Tablet 1 07/19/2023 Active Ezetimibe 10 MG Oral Tablet (Zetia)Indications: Hyperlipidemia with target LDL less than 160 TAKE 1 TABLET BY MOUTH EVERY DAY IN THE MORNING 90 Tablet 1 08/02/2023 Active Restasis 0.05 % Ophthalmic Emulsion PUT 1 DROP IN EACH EYE 2 TIMES DAILY (ONCE IN MORNING AND ONCE AT NIGHT-12 HOURS APART) 08/16/2023 Active Synthroid 75 MCG Oral TabletIndications:P ostablative hypothyroidism Take 1 Tablet by mouth in the morning 6 days a week. (at least 30 min prior to breakfast or other meds) 90 Tablet 09/29/2023 Active Carbidopa-Levodopa 25-100 MG Oral Tablet (Sinemet)Indication s:Parkinson's disease without dyskinesia or fluctuating manifestations (HCC) TAKE 1 TABLET PER MOUTH THREE TIMES A DAY AT 7AM-11:30AM-5: 30PM 270 Tablet 12/09/2023 Active Carbidopa-Levodopa 25-100 MG Oral Tablet (Sinemet)Indication s:Parkinson's disease without dyskinesia or fluctuating manifestations (HCC) Take 1 tablet per mouth three times a day at 7AM-11:30AM-5: 30PM 270 Tablet 09/14/2023 12/09/19 24 Discontinued documented as of this encounter (statuses as of 12/09/2023) Active Problems Problem Noted Date Diagnosed Date [...] as of this encounter (statuses as of 12/09/2023) Resolved Problems Problem Noted Date Diagnosed Date [...] as of this encounter (statuses as of 12/09/2023) Immunizations Name Administration Dates Next Due COVID-19 [...] encounter Miscellaneous Notes * Telephone Encounter - Calbe Zazueta, [facility] - 12/09/2023 1:08 PM EDTSigned Prescriptions: Disp Refills Carbidopa-Levodopa 25-100 MG Oral Tablet (*270 Ta*0 Sig: TAKE 1 TABLET PER MOUTH THREE TIMES A DAY AT 7AM-11:30AM-5:30PMAuthorizing Provider: NATALIE STEARNS N * Telephone Encounter - Natalie Stearns MD - 12/09/2023 12:55 PM EDT Signed Prescriptions: Disp Refills Carbidopa-Levodopa 25-100 MG Oral Tablet (*270 Ta*0 Sig: TAKE 1 TABLET PER MOUTH THREE TIMES A DAY AT 7AM-11:30AM-5:30PM Authorizing Provider: NATALIE STEARNS * Telephone Encounter - Nara Nogueira LPN - 12/09/2023 11:02 AM EDT Pending Prescriptions: Disp Refills Carbidopa-Levodopa 25-100 MG Oral Tablet [*270 Ta*0 Sig: Take 1 tablet per mouth three times a day at 7AM-11:30AM-5:30PM * Telephone Encounter - Lisa Smith, supervisor coil springs - 12/09/2023 10:24 AM EDT Pt calling to check on status of Carbidopa-Levodopa 25-100 MG Oral Tablet (Sinemet). Caller can be reached at [phone]. Thank you, Lisa Smith [facility] 12/09/2023,10:24 AM * Telephone Encounter - Tessa Ribeiro - 12/09/2023 4:23 AM EDTPending Prescriptions: Disp Refills Carbidopa-Levodopa 25-100 MG Oral Tablet [*270 Ta*0 Sig: Take 1 tablet per mouth three times a day at 7AM-11:30AM-5:30PM * Telephone Encounter - Tessa Ribeiro - 12/09/2023 4:21 AM EDT Did you pend patient's preferred pharmacy and medication before forwarding?yes Pharmacy: [id number] [id number] [facility] Pending Prescriptions: Disp Refills Carbidopa-Levodopa 25-100 MG Oral Tablet *270 Ta*0 Sig: TAKE 1 TABLET PER MOUTH THREE TIMES A DAY AT 7AM-11:30AM-5:30PM Last Visit: Visit date not found (in office), Visit date not found (telemedicine) Next Visit: Visit date not found If no future appointments scheduled, and last appointment is greater than a year ago, please schedule patient for a follow-up appointment Last date the medication was ordered: 09/14/2023 Is this request for a controlled substance?No Urine Drug Screen:No results found for this or any previous visit. Patient Phone Numbers Labs: Lab Results Component Value Date/Time CREAT 1.0 09/26/2023 11:55 AM CREAT 1.18 (A) 08/22/2023 12:00 AM CREAT 1.0 12/28/2019 09:03 AM POTASSIUM 4.1 09/26/2023 11:55 AM POTASSIUM 4.0 08/22/2023 12:00 AM POTASSIUM 4.1 12/28/2019 09:03 AM TSH 0.56 12/02/2023 04:20 PM TSH 0.35 12/28/2019 09:03 AM TSH 1.62 05/01/1996 11:14 AM LDL 98 09/26/2023 11:55 AM LDL 135 (H) 12/28/2019 09:03 AM LDL NOT APPLICABLE 12/28/2019 09:03 AM LDL 176. (HH) 05/01/1996 11:14 AM ALT 55 (H) 09/26/2023 11:55 AM ALT 14 12/28/2019 09:03 AM HGBA1C 5.6 12/28/2019 09:03 AM documented in this encounter Plan of Treatment Upcoming Encounters Date Type Department Care Team (Late st Contact Info) Description 02/23/2024 10:00 AM EST Office Visit Neurology [facility] [address] [place] [address] Kyle Ragland MD [address] [place] [address] Health Maintenance Due Date Last Done Comments [...] Additional history exists CKD HGB USE SMARTSET 33631 09/25/202409/25, 08/22/2023, 12/02/2022, Additional history exists CKD PHOS USE SMARTSET 60100 09/25/202409/05, 09/28/2022, 09/24/2021, Additional history exists TSH 12/01/2024 12/02/2023, 09/05, 12/02/2022, Additional history exists Cologuard 10/20/2025 10/20/2022, 10/05, [...] as of this encounter Visit Diagnoses Diagnosis Parkinson's disease without dyskinesia or fluctuating manifestations (HCC) documented in this encounter Care Teams Oyster Picker Relationship Specialty Start Date End Date Radha Chaudhry MD [address] [facility] [address] PCP - General Internal Medicine 04/16/14 documented as of this encounter
[2024-01-09] MEDS: CARBIDOPA/LEVODOPA 25/100MG TAB PO SCH ×2 (23:55→23:56)
--- OUTSIDE RECORDS SUMMARY | 2024-01-09 23:55 | External Medical Summary | Summary of Care ---
Author Name Unknown Organization [facility] Address [address] [place] [address] Phone [phone] Care Team Providers Care Internet Marketing Consultant Name Role Phone Radha Chaudhry MD Primary Care Provider + Encounter Details Date Type Department Care Team (Late st Contact Info) Description 08/22/2023 Result Scan Unspecified Department <No scans attached> Allergies Active Allergy Reactions Criticality Noted Date Comments Iodine Hives Low 02/08/2023 Per Pt in [address] Scan and had a hive break out on her chest Simvastatin High 12/05/2008 Muscle pain documented as of this encounter (statuses as of 08/24/2023) Medications Medication Sig Dispensed Refills Start Date [...] Capsule by mouth in the morning. Active Levothyroxine Sodium 75 MCG Oral Tablet (Synthroid) Take 1 Tablet by mouth in the morning. (at least 30 min prior to breakfast or other meds) brand name only. 90 Tablet 3 03/24/2023 Active Magnesium 500 MG Oral Capsule Take [...] THE MORNING 90 Tablet 1 08/02/2023 Active documented as of this encounter (statuses as of 08/24/2023) Active Problems Problem Noted Date Diagnosed Date [...] as of this encounter (statuses as of 08/24/2023) Resolved Problems Problem Noted Date Diagnosed Date [...] as of this encounter (statuses as of 08/24/2023) Immunizations Name Administration Dates Next Due COVID-19 [...] PM EDT Office Visit General Internal Medicine [facility] [address] [facility] [place] [address] Radha Chaudhry MD [address] [facility] [place] [address] 02/23/2024 10:00 AM EST Office Visit Neurology [facility] [address] [facility] [place] [address] Kyle Ragland MD [address] [place] [address] Health Maintenance Due Date Last Done Comments Hepatitis C Screening 1968 DTaP,Tdap,and Td Vaccines (1 - Tdap) 1969 Colonoscopy 10/08/1995 Fecal Occult Blood Test 10/08/1995 Sigmoidoscopy 10/08/1995 Depression Screening 09/18/2021 09/18/2020 COVID-19 Vaccine ( season) 2023 01/13/2023, 05/13/2020, 04/22/2020 Albumin/Creatinine Ratio 08/18/2023 023, 09/24/2021, 09/19/2020, Additional history exists CKD PHOS USE SMARTSET 93537 09/29/2023 0707/2022, 09/24/2021, 09/18/2020 TSH 12/03/2023 12/02/2022, 08/05, 03/05/2021, Additional history exists Mammogram 12/28/2023 12/27/2022, 12/06, 12/22/2020, Additional history exists GFR 02/21/2024 08/22/2023, 01/06, 12/02/2022, Additional history exists CKD HGB USE SMARTSET 52815 08/21/202408/21, 12/02/2022, 12/02/2022, Additional history exists Cologuard 10/20/2025 10/20/2022, 10/05, 10/14/2022, Additional history exists Colorectal Cancer Screening 10/20/2025 DXA Scan 11/30/2025 11/30/2022, 11/06, 06/24/2015 Lipid Panel 03/05/2026 03/05/2021, 09/04, 12/28/2019, Additional history exists Pneumococcal Vaccine: 65+ Years Completed 06/09/2017, 06/08/2016 Zoster Vaccines Completed 02/12/2020, 11/06, 09/04/2013 Influenza Vaccine (FLU shot) Completed , 01/24/2023, 11/30/2019, Additional history exists GARDASIL-HPV IMMUNIZATION SERIES Aged Out No longer eligible based on patient's age to complete this topic Hepatitis B Aged Out No longer eligi ble based on patient's age to complete this topic MENINGOCOCCAL (MENACTRA/MENVEO) Aged Out No longer eligible based on patient's age to complete this topic documented as of this encounter Medical Devices Not on filedocumented as of this encounter Procedures Procedure Name Priority Date/Time Associated Diagnosis Comments OUTSIDE LAB RESULTS 08/22/2023 documented in this encounter Results * OUTSIDE LAB RESULTS (08/22/2023) 08/22/2023 No Physician Data Unknown LABORATORY documented in this encounter Care Teams Internet Marketing Consultant Relationship Specialty Start Date End Date Radha Chaudhry MD [address] [place] [address], [place] [address] PCP - General Internal Medicine 04/16/14 documented as of this encounter
--- OUTSIDE RECORDS SUMMARY | 2024-01-09 23:55 | External Medical Summary | Summary of Care ---
Author Name Unknown Organization [facility] Address [address] [place] [address] Phone [phone] Care Team Providers Care Certified Peer Specialist Name Role Phone Radha Chaudhry MD Primary Care Provider + Reason for Visit * Reason Onset Date Comments Health Maintenance 08/04/2023 Encounter Details Date Type Department Care Team (Late st Contact Info) Description 08/04/2023 Telephone [facility] [place] [address] [place] [address] Rad[facility] MD [address] [facility] [address] [facility] Maintenance Allergies Active Allergy Reactions Criticality Noted Date Comments Iodine Hives Low 02/08/2023 Per Pt in [address] Scan and had a hive break out on her chest Simvastatin High 12/05/2008 Muscle pain documented as of this encounter (statuses as of 08/04/2023) Medications Medication Sig Dispensed Refills Start Date [...] as of this encounter (statuses as of 08/04/2023) Active Problems Problem Noted Date Diagnosed Date [...] as of this encounter (statuses as of 08/04/2023) Resolved Problems Problem Noted Date Diagnosed Date [...] as of this encounter (statuses as of 08/04/2023) Immunizations Name Administration Dates Next Due COVID-19 [...] encounter Miscellaneous Notes * Telephone Encounter - Catrina Machuca LPN - 08/04/2023 12:24 PM EDT Care Gaps Comprehensive Care Outreach Last Office/Telemedicine Visit: 06/06/2023 (in office), 06/19/2019 (telemedicine) Next Office Visit: 10/04/2023 Hemoglobin AIC Results: Lab Results Component Value Date/Time HEMOGLOBIN A1C - [facility] 5.6 12/28/2019 09:03 AM HEMOGLOBIN A1C - [facility] 5.3 06/08/2016 10:13 AM BP Readings from Last 1 Encounters: 06/06/23 124/76 Reviewed Health Maintenance below: Health Maintenance Topic Date Due Hepatitis C Screening Never done DTaP,Tdap,and Td Vaccines (1 - Tdap) Never done Depression Screening 09/18/2021 COVID-19 Vaccine ( season) 2023 GFR 08/01/2023 Albumin/Creatinine Ratio 08/18/2023 CKD PHOS USE SMARTSET 40492 09/29/2023 CKD HGB USE SMARTSET 51680 12/03/2023 TSH 12/03/2023 Labs already ordered Care Gap Outreach Action Taken: Outreach not indicated documented in this encounter Plan of Treatment Upcoming Encounters Date Type Department Care Team (Late st Contact Info) Description 08/23/2023 9:20 AM EDT Office Visit Neurology [place] [place] [address] [place] [address] Kyle Ragland MD [address] [place] [address] 10/04/2023 1:00 PM EDT Office Visit General Internal Medicine [facility] [address] [facility] [place] [address] Radha Chaudhry MD [address] [facility] [place] [address] Health Maintenance Due Date Last Done Comments Hepatitis C Screening 1968 DTaP,Tdap,and Td Vaccines (1 - Tdap) 1969 Colonoscopy 10/08/1995 Fecal Occult Blood Test 10/08/1995 Sigmoidoscopy 10/08/1995 Depression Screening 09/18/2021 09/18/2020 COVID-19 Vaccine ( season) 2023 01/13/2023, 05/13/2020, 04/22/2020 GFR 08/01/2023 01/31/2023, 11/06, 09/28/2022, Additional history exists Albumin/Creatinine Ratio 08/18/2023 023, 09/24/2021, 09/19/2020, Additional history exists CKD PHOS USE SMARTSET 36456 09/29/202309/05, 09/24/2021, 09/18/2020 CKD HGB USE SMARTSET 43904 12/03/202312/02, 12/02/2022, 08/06/2022, Additional history exists TSH 12/03/2023 12/02/2022, 08/05, 03/05/2021, Additional history exists Mammogram 12/28/2023 12/27/2022, 12/06, 12/22/2020, Additional history exists Cologuard 10/20/2025 10/20/2022, 10/05, [...] filedocumented as of this encounter Care Teams Certified Peer Specialist Relationship Specialty Start Date End Date Radha Chaudhry MD [address] [place] [address] PCP - General Internal Medicine 04/16/14 documented as of this encounter
--- OUTSIDE RECORDS SUMMARY | 2024-01-09 23:55 | External Medical Summary ---
Author Name Unknown Address Unknown Organization K01:[facility] - [address] [facility] [address] Laboratory Report Ordering Provider Test Date Status JONNATHAN CARDENAS 09/26/2023 11:55:41 Final Observation Date Value Abnormality Reference (Units ) Status BUN 09/26/2023 11:55:41 19 6-20 (mg/dL) Final Creatinine 09/26/2023 11:55:41 1.0 0.5-1.0 (mg/dL) Final Glomerular filtration rate/1.73 sq M.predicted [Volume Rate/Area] in Serum, Plasma or Blood by Creatinine-based formula (CKD-EPI) 09/26/2023 11:55:41 59 Below low normal >=60 (mL/min) Final eGFR is calculated based on the CKD-EPI 2020 equation. Sodium 09/26/2023 11:55:41 137 135-146 (m mol/L) Final Potassium 09/26/2023 11:55:41 4.1 3.5-5.1 (m mol/L) Final Cl 09/26/2023 11:55:41 102 98-107 (mm ol/L) Final CO2 09/26/2023 11:55:41 25 22-32 (mmo l/L) Final Anion gap 09/26/2023 11:55:41 10 7-15 (mmol /L) Final Glucose 09/26/2023 11:55:41 116 70-120 (mg /dL) Final Albumin 09/26/2023 11:55:41 4.1 3.8-5.0 (g /dL) Final AST (Aspartate aminotransferase) 09/26/2023 11:55:41 86 Above high normal 10-35 (U/L) Final Alk Phos 09/26/2023 11:55:41 75 35-130 (U/ L) Final Bilirubin, Total 09/26/2023 11:55:41 0.8 <=1 .2 (mg/dL) Final Calcium 09/26/2023 11:55:41 9.1 8.4-10.2 ( mg/dL) Final Protein 09/26/2023 11:55:41 7.2 6.0-8.3 (g /dL) Final ALT (Alanine aminotransferase) 09/26/2023 11:55:41 55 Above high normal 10-35 (U/L) Final Performing Location [facility] - [facility] [address] [facility] [address]
--- OUTSIDE RECORDS SUMMARY | 2024-01-09 23:55 | External Medical Summary | Summary of Care ---
Author Name Unknown Organization [facility] Address [address] [place] [address] Phone [phone] Care Team Providers Care Lumber Buyer Name Role Phone Radha Chaudhry MD Primary Care Provider + Reason for Visit * Reason Onset Date Comments Medication Refill 09/14/2023 Encounter Details Date Type Department Care Team (Late st Contact Info) Description [facility] [address] [place] [address] Kyle Ragland MD [address] [place] [address] Parkinson's disease without dyskinesia or fluctuating manifestations (HCC) Allergies Active Allergy Reactions Criticality Noted Date Comments Iodine Hives Low 02/08/2023 Per Pt in [address] Scan and had a hive break out on her chest Simvastatin High 12/05/2008 Muscle pain documented as of this encounter (statuses as of 09/14/2023) Medications Medication Sig Dispensed Refills Start Date End Date Status B COMPLEX OR TABSIndications:Toxic diffuse goiter 1 tab daily 0 07/01/2004 Active Ventolin HFA 108 (90 Base) MCG/ACT Inhalation Aerosol SolutionIndications:Pn eumonia of both lungs due to infectious organism, unspecified part of lung Inhale 2 Puffs by mouth in the morning and 2 Puffs at noon and 2 Puffs in the evening and 2 Puffs before bedtime. 18 g 2 12/21/2022 Active Spacer/Aero-Holding Chambers DeviceIndications:Pneu monia of both lungs due to infectious organism, [...] Active Losartan Potassium 100 MG Oral Tablet (Cozaar)Indications:HT N, goal below 140/90 TAKE 1 TABLET BY MOUTH EVERY DAY IN THE MORNING 90 Tablet 1 07/19/2023 Active Ezetimibe 10 MG Oral Tablet (Zetia)Indications:Hyp erlipidemia with target LDL less than 160 TAKE 1 TABLET BY MOUTH EVERY DAY IN THE MORNING 90 Tablet 1 08/02/2023 Active Restasis 0.05 % Ophthalmic Emulsion PUT 1 DROP IN EACH EYE 2 TIMES DAILY (ONCE IN MORNING AND ONCE AT NIGHT-12 HOURS APART) 08/16/2023 Active Carbidopa-Levodopa 25-100 MG Oral Tablet (Sinemet)Indications:P arkinson's disease without dyskinesia or fluctuating manifestations (HCC) Take 1 tablet per mouth three times a day at 7AM-11:30AM-5:30 PM 90 Tablet 5 08/23/2023 Active documented as of this encounter (statuses as of 09/14/2023) Active Problems Problem Noted Date Diagnosed Date [...] as of this encounter (statuses as of 09/14/2023) Resolved Problems Problem Noted Date Diagnosed Date [...] as of this encounter (statuses as of 09/14/2023) Immunizations Name Administration Dates Next Due COVID-19 [...] as of this encounter Miscellaneous Notes * Addendum Note - Tammi Ziegler CPhT - 09/14/2023 8:26 AM EDTAddended by: TAMMI ZIEGLER on: 09/14/2023 08:26 AM Modules accepted: Orders * Telephone Encounter - Tammi Ziegler CPhT - 09/14/2023 8:25 AM EDT Patient is requesting a 90-day supply, pre-edited RXs as such. Please review and approve if appropriate. Pt said she needs for Tuesday as she is going out of town. Pending Prescriptions: Disp Refills Carbidopa-Levodopa 25-100 MG Oral Tablet *270 Ta*1 Sig: Take 1 tablet per mouth three times a day at 7AM-11:30AM-5:30PM Last Visit: 08/23/2023 (in office), Visit date not found (telemedicine) Next Visit: 02/23/2024 If no future appointments scheduled, and last appointment is greater than a year ago, please schedule patient for an appointment Last date the medication was ordered: 08/23/23 Patient Phone Numbers Labs: Lab Results Component Value Date/Time CREAT 1.18 (A) 08/22/2023 12:00 AM CREAT 1.0 12/28/2019 09:03 AM POTASSIUM 4.0 08/22/2023 12:00 AM POTASSIUM 4.1 12/28/2019 09:03 AM TSH 1.84 12/02/2022 11:18 AM TSH 0.35 12/28/2019 09:03 AM TSH 1.62 05/01/1996 11:14 AM LDLCALC 120 03/05/2021 08:27 AM LDLCALC 135 (H) 12/28/2019 09:03 AM LDLCALC 176. (HH) 05/01/1996 11:14 AM LDLDIRECT 122 09/18/2020 04:20 PM LDLDIRECT NOT APPLICABLE 12/28/2019 09:03 AM LDLDIRECT 117 11/01/2014 08:56 AM ALT 24 12/02/2022 11:18 AM ALT 14 12/28/2019 09:03 AM HGBA1C 5.6 12/28/2019 09:03 AM * Telephone Encounter - Emma Cuevas printed circuit board assembler - 09/14/2023 8:22 AM EDT Patient calling for a refill on Carbidopa-Levodopa. This was last prescribed by neurology. Transfer to specialty refill line. Thank you, Emma Cuevas Show Card Letterer I [facility] 09/14/2023,8:23 AM documented in this encounter Plan of Treatment Upcoming Encounters Date Type Department Care Team (Late st Contact Info) Description 10/04/2023 1:00 PM EDT Office Visit General Internal Medicine [facility] [address] [facility] [place] [address] Radha Chaudhry MD [address] [facility] [place] [address] 02/23/2024 10:00 AM EST Office Visit Neurology [facility] [address] [facility] [place] [address] Kyle Ragland MD [address] [place] [address] Health Maintenance Due Date Last Done Comments Hepatitis C Screening 1968 DTaP,Tdap,and Td Vaccines (1 - Tdap) 1969 Colonoscopy 10/08/1995 Fecal Occult Blood Test 10/08/1995 Sigmoidoscopy 10/08/1995 Depression Screening 09/18/2021 09/18/2020 COVID-19 Vaccine ( season) 2023 01/13/2023, 05/13/2020, 04/22/2020 Albumin/Creatinine Ratio 08/18/2023 023, 09/24/2021, 09/19/2020, Additional history exists CKD PHOS USE SMARTSET 73420 09/29/202309/05, 09/24/2021, 09/18/2020 Influenza Vaccine (FLU shot) (#1) 2023 01/24/2023, 01/24/2023, 11/30/2019, Additional history exists TSH 12/03/2023 12/02/2022, 08/05, 03/05/2021, Additional history exists Mammogram 12/28/2023 12/27/2022, 12/06, 12/22/2020, Additional history exists GFR 02/21/2024 08/22/2023, 01/06, 12/02/2022, Additional history exists CKD HGB USE SMARTSET 18822 08/21/202408/21, 12/02/2022, 12/02/2022, Additional history exists Cologuard [...] (HCC) documented in this encounter Care Teams Lumber Buyer Relationship Specialty Start Date End Date Radha Chaudhry MD [address] [place] [address] PCP - General Internal Medicine 04/16/14 documented as of this encounter
--- OUTSIDE RECORDS SUMMARY | 2024-01-09 23:55 | External Medical Summary | Summary of Care ---
Author Name Unknown Organization [facility] Address [address] [place] [address] Phone [phone] Care Team Providers Care Corporate Tax Manager Name Role Phone Radha Chaudhry MD Primary Care Provider + Reason for Visit * Reason Onset Date Comments Test Results 07/11/2023 Advice 07/15/2023 Encounter Details Date Type Department Care Team (Late st Contact Info) Description 07/11/2023 Telephone General Internal Medicine [facility] [address] [facility] [place] [address] Radha Chaudhry MD 200 [place] [address] Test Results; Advice Allergies Active Allergy Reactions Criticality Noted Date Comments Iodine Hives Low 02/08/2023 Per Pt in [address] Scan and had a hive break out on her chest Simvastatin High 12/05/2008 Muscle pain documented as of this encounter (statuses as of 07/15/2023) Medications Medication Sig Dispensed Refills Start Date [...] of lung Use with inhaler. 1 Each 0 12/21/2022 Active Ezetimibe 10 MG Oral Tablet (Zetia) Take 1 Tablet by mouth in the morning. 90 Tablet 1 02/01/2023 Active Multivitamin Adults 50+ Oral Tablet Take 1 Tablet by mouth in the morning. 0 Active Probiotic & Acidophilus Ex St Oral Capsule Take 1 Capsule by mouth in the morning. 0 Active Levothyroxine Sodium 75 MCG Oral Tablet (Synthroid) Take 1 Tablet by mouth in the morning. (at least 30 min prior to breakfast or other meds) brand name only. 90 Tablet 3 03/24/2023 Active Losartan Potassium 100 MG Oral Tablet (Cozaar)Indications: HTN, goal below 140/90 TAKE 1 TABLET BY MOUTH EVERY DAY IN THE MORNING 90 Tablet 1 05/16/2023 Active Magnesium 500 MG Oral Capsule Take 1 Capsule by mouth in the morning. 0 Active documented as of this encounter (statuses as of 07/15/2023) Active Problems Problem Noted Date Diagnosed Date [...] as of this encounter (statuses as of 07/15/2023) Resolved Problems Problem Noted Date Diagnosed Date [...] as of this encounter (statuses as of 07/15/2023) Immunizations Name Administration Dates Next Due COVID-19 [...] encounter Miscellaneous Notes * Telephone Encounter - Sepideh May LPN - 07/15/2023 11:30 AM EDT Patient is calling. Given the message from Dr. Chaudhry: MRI Brain shows no major or acute changes. Verbalized understanding. Very frustrated that it two weeks to get her results. Will keep the upcoming neurology appointment * Telephone Encounter - Mile Mcgee OSA - 07/15/2023 11:19 AM EDT Reason for patient's call: Katy (prefers to be called Katy not Abigail) She is demanding to speak to a Nurse in reference to her MRI results-She is upset that she hasn't received a call. I called patient back- connection was bad. Caller was transferred to [facility] at the nurse line. * Telephone Encounter - Radha Chaudhry MD - 07/14/2023 4:58 PM EDT See another encounter. * Telephone Encounter - Gina Sainz OSA - 07/11/2023 11:59 AM EDT Who is Requesting Test Results: PATIENT Primary Care Provider : Radha Chaudhry MD Tests Results Requested : MRI RESULTS Date of Test : 07-04-2023 Location of Test: [facility] Ordering Provider: PCP Patient has been made aware that the [...] 08/23/2023 9:20 AM EDT Office Visit Neurology [facility] [address] [facility] [place] [address] Kyle Ragland MD [address] [place] [address] 10/04/2023 1:00 PM EDT Office Visit General Internal Medicine [facility] [address] [facility] [place] [address] Radha Chaudhry MD [address] [facility] [place] [address] Health Maintenance Due Date Last Done Comments Hepatitis C Screening 1968 DTaP,Tdap,and Td Vaccines (1 - Tdap) 1969 Colonoscopy 10/08/1995 Fecal Occult Blood Test 10/08/1995 Sigmoidoscopy 10/08/1995 Depression Screening 09/18/2021 09/18/2020 GFR 08/01/2023 01/31/2023, 11/06, 09/28/2022, Additional history exists Albumin/Creatinine Ratio 08/18/2023 023, 09/24/2021, 09/19/2020, Additional history exists CKD PHOS USE SMARTSET 30144 09/29/202309/05, 09/24/2021, 09/18/2020 CKD HGB USE SMARTSET 98464 12/03/202312/02, 12/02/2022, 08/06/2022, Additional history exists TSH 12/03/2023 12/02/2022, 08/05, 03/05/2021, Additional history exists Mammogram 12/28/2023 12/27/2022, 12/06, 12/22/2020, Additional history exists Cologuard 10/20/2025 10/20/2022, 10/05, 10/14/2022, Additional history exists Colorectal Cancer Screening 10/20/2025 DXA Scan 11/30/2025 11/30/2022, 11/06, 06/24/2015 Lipid Panel 03/05/2026 03/05/2021, 09/04, 12/28/2019, Additional history exists Pneumococcal Vaccine: 65+ Years Completed 06/09/2017, 06/08/2016 Zoster Vaccines Completed 02/12/2020, 11/06, 09/04/2013 COVID-19 Vaccine Completed 01/13/2023, 11/2020, 04/22/2020 Influenza Vaccine (FLU shot) Completed , 01/24/2023, [...] filedocumented as of this encounter Care Teams Corporate Tax Manager Relationship Specialty Start Date End Date Radha Chaudhry MD [address] [place] [address] PCP - General Internal Medicine 04/16/14 documented as of this encounter
--- OUTSIDE RECORDS SUMMARY | 2024-01-09 23:55 | External Medical Summary | Summary of Care ---
Author Name Unknown Organization [facility] Address [address] [place] [address] Phone [phone] Care Team Providers Care Computer Drafter Name Role Phone Radha Chaudhry MD Primary Care Provider + Reason for Visit * Reason Onset Date Comments Referral 06/22/2023 Encounter Details Date Type Department Care Team (Late st Contact Info) Description 06/22/2023 Telephone General Internal Medicine [facility] [place] [address] [place] [address] [facility] [address] Referral Allergies Active Allergy Reactions Criticality Noted Date Comments Iodine Hives Low 02/08/2023 Per Pt in [address] Scan and had a hive break out on her chest Simvastatin High 12/05/2008 Muscle pain documented as of this encounter (statuses as of 07/27/2023) Medications Medication Sig Dispensed Refills Start Date End Date Status B COMPLEX OR TABSIndications:T oxic diffuse goiter 1 tab daily 0 07/01/2004 Active Ventolin HFA 108 (90 Base) MCG/ACT Inhalation Aerosol SolutionIndicatio ns:Pneumonia of both lungs due to infectious organism, unspecified part of lung Inhale 2 Puffs by mouth in the morning and 2 Puffs at noon and 2 Puffs in the evening and 2 Puffs before bedtime. 18 g 2 12/21/2022 Active Spacer/Aero-Holdi ng Chambers DeviceIndications :Pneumonia of both lungs due to infectious organism, unspecified part of lung Use with inhaler. 1 Each 12/21/2022 Active Ezetimibe 10 MG Oral Tablet [...] Active Losartan Potassium 100 MG Oral Tablet (Cozaar)Indicatio ns:HTN, goal below 140/90 TAKE 1 TABLET BY MOUTH EVERY DAY IN THE MORNING 90 Tablet 1 05/16/2023 07/18/2023 Discontinued (Refill) documented as of this encounter (statuses as of 07/27/2023) Active Problems Problem Noted Date Diagnosed Date [...] as of this encounter (statuses as of 07/27/2023) Resolved Problems Problem Noted Date Diagnosed Date [...] as of this encounter (statuses as of 07/27/2023) Immunizations Name Administration Dates Next Due COVID-19 [...] encounter Miscellaneous Notes * Telephone Encounter - Adriana Lynn OSA - 07/27/2023 8:55 AM EDT Mari had MRI completed on 07.04.2023. 07/27/2023 * Telephone Encounter - Gris Looney OSA - 06/23/2023 2:43 PM EDT The patient has been called as per the precert department at [facility] that location is OON with her INS. She is not scheduled at [facility] on 07/04/2023 for her MRI of the brain. I have taken over this patient to get her auth and also make her aware. She was not happy at all and complete berated me when I called her as this has not been taken care of in the last 3 months. I apologized to her over and over again to try to help the situation but she want ed to hear none of it and was just upset withme and the whole system the whole time. Per the rep with the precert department at [facility] the [facility] team should be getting this auth in their in basket. I have a personal note to look at this before 06/30/2023 to give her information regarding the authrequest. * Telephone Encounter - Kimberly Stoner LPN - 06/22/2023 4:00 PM EDT Forwarding to specialty scheduling to send on to the prior auth team. * Telephone Encounter - Teri Hanson OSA - 06/22/2023 3:28 PM EDT What test/procedure needs prior auth/pre-certification? Mri brain Who is ordering the testing? Dr Chaudhry Which facility is the testing/procedure being completed at? [facility] What is the facility phone number? na When is the test scheduled for? na Who is calling to request the prior auth/pre-certification (patient or facility)? Patient. Pt was scheduled to have the MRI on 06/13 but cancelled because after speaking with Margaret, she ABSOLUTELY doesneed to have a Pre-Auth for this study. There has been some confusion as to wether she needs it Pre Authorized, and speaking with Ate[facility]eth and Radiology and it can not be done with out it. We need to get this Authorized TONY. Patient has been waiting 3 months to have the study done and is beyond frustrated. documented in this encounter Plan of Treatment Upcoming Encounters Date Type Department Care Team (Late st Contact Info) Description 08/23/2023 9:20 AM EDT Office Visit Neurology [facility] [place] [address] [place] [address] Kyle Ragland MD [address] [place] [address] 10/04/2023 1:00 PM EDT Office Visit General Internal Medicine [place] [address] [place] [address] Radha Chaudhry MD [facility] [place] [address] [address] Health Maintenance Due Date Last Done Comments Hepatitis C Screening 1968 DTaP,Tdap,and Td Vaccines (1 - Tdap) 1969 Colonoscopy 10/08/1995 Fecal Occult Blood Test 10/08/1995 Sigmoidoscopy 10/08/1995 Depression Screening 09/18/2021 09/18/2020 COVID-19 Vaccine (4 - 2022- season) 2023 01/13/2023, 05/13/2020, 04/22/2020 GFR 08/01/2023 01/31/2023, 11/06, 09/28/2022, Additional history exists Albumin/Creatinine Ratio 08/18/2023 023, 09/24/2021, 09/19/2020, Additional history exists CKD PHOS USE SMARTSET 40985 09/29/202309/05, 09/24/2021, 09/18/2020 CKD HGB USE SMARTSET 84595 12/03/202312/02, 12/02/2022, 08/06/2022, Additional history exists TSH [...] filedocumented as of this encounter Care Teams Computer Drafter Relationship Specialty Start Date End Date Radha Chaudhry MD [address] [facility] [place] [address] PCP - General Internal Medicine 04/16/14 documented as of this encounter
--- OUTSIDE RECORDS SUMMARY | 2024-01-09 23:55 | External Medical Summary ---
Author Name Unknown Address Unknown Organization K01:[facility] - [address] [place] [address] Laboratory Report Ordering Provider Test Date Status JONNATHAN CARDENAS 09/26/2023 11:55:41 Final Observation Date Value Abnormality Reference (Units ) Status T4, Free 09/26/2023 11:55:41 2.0 Above high normal 0. 9-1.7 (ng/dL) Final Performing Location [facility] [address] [facility] [address]
--- OUTSIDE RECORDS SUMMARY | 2024-01-09 23:55 | External Medical Summary | Summary of Care ---
Author Name Unknown Organization [facility] Address [address] [place] [address] Phone [phone] Care Team Providers Care Sheet Rock Finisher Name Role Phone Garth Chaudhry MD Primary Care Provider + Reason for Visit * Reason Comments NEW PATIENT * Evaluate & Treat - Unlimited Visits (Within 30 days (routine)) - Pending Review Specialty Diagnoses / Procedures Referred By Emmanuel tomlin Referred To Contact Neurology Diagnoses Tremor of both hands Garth Chaudhry MD [address] [place] [address] Referral ID Status Reason Start Date Expiration Date Visits Requested Visits Authorized [id number] Pending Review Specialty Services Required 03/24/[phone] Encounter Details Date Type Department Care Team (Latest Contact Info) Description 08/23/2023 9:20 AM EDT Office Visit Neurology [facility] [place] [address] [facility] [place] [address] Kyle Ragland MD [address] [place] [address] Parkinson's disease without dyskinesia or fluctuating manifestations (HCC)* Allergies Active Allergy Reactions Criticality Noted Date Comments Iodine Hives Low 02/08/2023 Per Pt in [address] Scan and had a hive break out on her chest Simvastatin High 12/05/2008 Muscle pain documented as of this encounter (statuses as of 08/23/2023) Medications Medication Sig Dispensed Refills Start Date [...] as of this encounter (statuses as of 08/23/2023) Active Problems Problem Noted Date Diagnosed Date [...] as of this encounter (statuses as of 08/23/2023) Resolved Problems Problem Noted Date Diagnosed Date [...] as of this encounter (statuses as of 08/23/2023) Immunizations Name Administration Dates Next Due COVID-19 [...] Sign Reading Time Taken Comments Blood Pressure 128/72 08/23/2023 9:08 AM EDT Pulse 88 08/23/2023 9:08 AM EDT Temperature 36.2 C (97.1 F) 08/23/2023 9:08 AM ED T Respiratory Rate 16 08/23/2023 9:08 AM EDT Oxygen Saturation 100% 08/23/2023 9:08 AM EDT Inhaled Oxygen Concentration - - Weight 48.6 kg (107 lb 1.6 oz) 08/23/2023 9:08 A M EDT Height - - Body Mass Index 17.3 06/06/2023 12:22 PM EDT documented in this encounter Progress Notes * Kyle Ragland MD - 08/23/2023 9:20 AM EDT 08/23/2023 8:13 AM Abigail Jimenez 72 year old female Ref: GARTH CHAUDHRY[[id number]] [address] [place] [address] (office) [phone] (fax) Asked by Garth Chaudhry MD to render opinion regarding evaluation management of tremors CC: No chief complaint on file. HPI: The patient is a 72-year-old right-handed woman who is being referred to us for evaluation andmanagement of tremors. She has bilateral hand tremors which have worsened over the past year. The tremors are brought on by certain activities such as writing, buttoning and unbuttoning, using silverware with difficulty cutting, handwriting has gotten smaller. Also at times appearing at rest. She endorses no memory disturbance. Has been using inhaler temporary for recently diagnosed bacterial pneumonia. Comorbidities are hypotension, history of Graves disease with postablative hypothyroidism (she is on Levoxyl), treated hyperlipidemia on Zetia, stage IIIA chronic kidney disease, Sjogren's syndrome with keratoconjunctivitis sicca. Her PCP ordered an MRI of the brain which was performed over 2 months ago and showed only a mild degree of periventricular and subcortical micro- ischemic changes. Started with tremors last October. She is weaker on the left arm, had breast cancer 20 years ago, had 2 surgery with chemoradiation. Lost 10lbs in the past year. She still has a sense a smell, not as good as before. No history of dream enactment. No family members with Parkinson's or tremor. Takes Metamucil to keep her stools softer. She has some drooling at night. Has difficulty turning around in bed at night due to sciatica. No shoulder pain. No hallucinations. No falls. Has been shuffling more. Her movements have slowed down, cannot do things at the pace that she was used to doing. Had a melanoma 3 years ago. Sees a shorts sifter every 6 months. Feels depressed because of her health condition. PAST MEDICAL HISTORY: Patient Active Problem List Diagnosis Date Noted History of melanoma [Z85.820] 12/02/2022 Postablative hypothyroidism [E89.0] 01/01/2021 Stage 3a chronic kidney disease [N18.31] 02/18/2020 Per CKD protocol - Per CKD protocol Generalized osteoarthritis [M15.9] 06/18/2019 Primary osteoarthritis of both knees [M17.0] 05/18/2017 Sjogren's syndrome with keratoconjunctivitis sicca (HCC) [M35.01] 08/19/2016 Petechial rash [R23.3] 08/19/2016 History of Graves' disease [Z86.39] 08/19/2016 CLEMENTINA positive [R76.8] 08/04/2016 Hyperlipidemia with target LDL less than 160 [E78.5] ICD-10 update of inactive term 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 MEDICATIONS: Current Outpatient Medications Medication Sig Dispense Refill B COMPLEX OR TABS 1 tab daily 0 Ventolin HFA 108 (90 Base) MCG/ACT Inhalation Aerosol Solution Inhale 2 Puffs by mouth in the morning and 2 Puffs at noon and 2 Puffs in the evening and 2 Puffs before bedtime. 18 g 2 Spacer/Aero-Holding Chambers Device Use with inhaler. 1 Each 0 Multivitamin Adults 50+ Oral Tablet Take 1 Tablet by mouth in the morning. Probiotic & Acidophilus Ex St Oral Capsule Take 1 Capsule by mouth in the morning. Levothyroxine Sodium 75 MCG Oral Tablet (Synthroid) Take 1 Tablet by mouth in the morning. (at least 30 min prior to breakfast or other meds) brand name only. 90 Tablet 3 Magnesium 500 MG Oral Capsule Take 1 Capsule by mouth in the morning. Losartan Potassium 100 MG Oral Tablet (Cozaar) TAKE 1 TABLET BY MOUTH EVERY DAY IN THE MORNING 90 Tablet 1 Ezetimibe 10 MG Oral Tablet (Zetia) TAKE 1 TABLET BY MOUTH EVERY DAY IN THE MORNING 90 Tablet 1 No current facility-administered medications for this visit. 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 Employer: [employer] Tobacco Use Smoking status: Never Smokeless tobacco: Never Substance and Sexual Activity Alcohol use: Yes Comment: socially Drug use: No Sexual activity: Not on file Other Topics Concern Not on file Social History Narrative Not on file Social Determinants of Health Financial Resource Strain: Not on file Food Insecurity: No Food Insecurity (09/18/2020) Hunger Vital Sign Worried About Running Out of Food in the Last Year: Never true Ran Out of Food in the Last Year: Never true Transportation Needs: Not on file Physical Activity: Not on file Stress: Not on file Social Connections: Not on file Intimate Partner Violence: Not on file Housing Stability: Not on file 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 HIV risk factors: None FAMILY HISTORY Family History Problem Relation Name Age of Onset Heart Disorder Father triple bypass Allergies Sister Asthma Sister Mental Disorder Sister mental retardation Thyroid Disorder Mother Cancer Mother renal Cancer Grandmother (Maternal) Hodgkin's disease Heart Disorder Grandfather (Paternal) Family Status Relation Status Fa Sis Alive Sis Alive Sis Mo MGMA (Not Specified) PGFA (Not Specified) REVIEW OF SYSTEMS: The patient denies new cardiac, lung, kidney, liver, bladder (urgency, no incontinence), or digestive problems. The patient also denies acute changes in hearing or vision. Otherwise, all other systems are negative or as noted above. There were no vitals taken for this visit. The patient is a 72 year old female who is well developed and appears to be their stated age. NEUROLOGIC EXAMINATION: Mental status: Intact higher integrative functions. Orientated to person, place, and time. Recent and remote memory functions are intact. Attention, concentration, language, and fund of knowledge arenormal. Judgment and insight are intact. Mood and affect are flat. Cranial nerves: CN 2: Visual doe are full to confrontation in both eyes. Undilated fundoscopic examination showsnormal optic discs and vessels in both eyes without hemorrhages or exudates. CN 3-4, 6: Pupils are equal, round, reactive to light and accommodation. Extraocular motility is intact in both eyes without nystagmus. Left eye with exophthalmos. Saccadic substitutions for smooth pursuit, no gaze restriction. CN 5: Facial sensation and jaw strength are normal bilaterally. CN 7: No facial muscle weakness but overall reduced expression. CN 8: Hearing is intact in both ears to whispered voice and finger rub. CN 9-10: Palate is symmetric and moves normally in the midline. CN 11: Sternocleidomastoid and trapezius muscle strength are normal bilaterally. CN 12: Tongue protrudes in midline. No tongue atrophy or fasciculation. Mild hypokinetic dysarthria. Mild micrographia. Motor: Normal power, bulk. Moderate cog wheeling rigidity L>R. Moderate bilateral bradykinesia L>R. Mild high frequency postural tremors. Sensory: Intact primary and cortical modalities throughout including light touch, pin, cold, vibration, joint position, stereognosis, graphesthesia, and point localization. No inattention or extinction. Coordination: [id number]-[id number], and rapid alternating movements are normal bilaterally. Fine motor coordination is normal in both hands. Reflexes: Normal and symmetric in the arms and hypoactive in legs with absent ankle responses. No pathologic reflexes. Gait/station: Slow gait on a narrow base with reduced arm swing L>R. Arises from a chair withoutdifficulty. En bloc turns. Romberg test is negative. Pull test is negative. GENERAL EXAMINATION: Head: Normocephalic without mass, lesion, or tenderness. Neck: No palpable thyromegaly or adenopathy. Cardiovascular: Heart rate and rhythm are normal to auscultation without murmur, click, or gallop. Carotid pulses have normal amplitudes bilaterally without bruit. Lungs: Clear to auscultation bilaterally. Extremities: No edema, cyanosis, clubbing, or deformities noted. Peripheral pulses are intact. Skin: No neurocutaneous stigmata or rash. I have personally reviewed her cranial MRI images. IMPRESSION: She has rigid-akinetic type Parkinson's. RECOMMENDATIONS: I will start her on Carbidopa/Levodopa 25/100 TID at 7AM-11:30AM-5:30PM. She was advised to take the medication on an empty stomach. She will f/u with me in 4 months. I spent approximately 45 minuteswith this patient greater than half the time was spent reviewing diagnosis, physical exam, imaging,and treatment. Thank-you for the pleasure of this consultation. I will keep you updated on your patient's progress. Kyle Ragland MD Neurology [address] [facility] [address] Please send copy to requesting physician, Garth Chaudhry MD documented in this encounter Nursing Notes * Skye Wilson LPN - 08/23/2023 9:07 AM EDT Patient verified identity by spelling of last name and date. Chief Complaint Patient presents with NEW PATIENT documented in this encounter Plan of Treatment Upcoming Encounters Date Type Department Care Team (Late st Contact Info) Description 10/04/2023 1:00 PM EDT Office Visit General Internal Medicine [address] [place] [address] Garth Chaudhry MD [address] [place] [address] [place] [address] 02/23/2024 10:00 AM EST Office Visit Neurology [address] [place] [address] Kyle Ragland MD [address] [place] [address] Health Maintenance Due Date Last Done Comments Hepatitis C Screening 1968 DTaP,Tdap,and Td Vaccines (1 - Tdap) 1969 Colonoscopy 10/08/1995 Fecal Occult Blood Test 10/08/1995 Sigmoidoscopy 10/08/1995 Depression Screening 09/18/2021 09/18/2020 COVID-19 Vaccine ( season) 2023 01/13/2023, 05/13/2020, 04/22/2020 GFR 08/01/2023 01/31/2023, 11/06, 09/28/2022, Additional history exists Albumin/Creatinine Ratio 08/18/2023 023, 09/24/2021, 09/19/2020, Additional history exists CKD PHOS USE SMARTSET 56997 09/29/202309/05, 09/24/2021, 09/18/2020 CKD HGB USE SMARTSET 29212 12/03/202312/02, 12/02/2022, 08/06/2022, Additional history exists TSH [...] Parkinson's disease without dyskinesia or fluctuating manifestations (HCC)- Primary documented in this encounter Care Teams Sheet Rock Finisher Relationship Specialty Start Date End Date Garth Chaudhry MD [address] [place] [address] PCP - General Internal Medicine 04/16/14 documented as of this encounter
--- OUTSIDE RECORDS SUMMARY | 2024-01-09 23:55 | External Medical Summary | Summary of Care ---
Author Name Unknown Organization [facility] Address [address] [place] [address] Phone [phone] Care Team Providers Care Protection Chief Industrial Plant Name Role Phone Garth Chaudhry MD Primary Care Provider + Reason for Visit * Reason Comments eRx-Medication Refill Encounter Details Date Type Department Care Team (Late st Contact Info) Description 07/31/2023 [facility] [place] [address] [place] [address] Garth Chaudhry MD [address] [place] [id number] Stage 3a chronic kidney disease*; History of Graves' disease; Toxic diffuse goiter; Hyperlipidemia with target LDL less than 160; HTN, goal below 140/90; Encounter for long-term (current) use of medications Allergies Active Allergy Reactions Criticality Noted Date Comments Iodine Hives Low 02/08/2023 Per Pt in [address] Scan and had a hive break out on her chest Simvastatin High 12/05/2008 Muscle pain documented as of this encounter (statuses as of 08/06/2023) Medications Medication Sig Dispensed Refills Start Date [...] 07/19/2023 Active Ezetimibe 10 MG Oral Tablet (Zetia)Indication s:Hyperlipidemia with target LDL less than 160 TAKE 1 TABLET BY MOUTH EVERY DAY IN THE MORNING 90 Tablet 1 08/02/2023 Active Ezetimibe 10 MG Oral Tablet (Zetia) Take 1 Tablet by mouth in the morning. 90 Tablet 1 02/01/2023 4 Discontinued documented as of this encounter (statuses as of 08/06/2023) Active Problems Problem Noted Date Diagnosed Date [...] as of this encounter (statuses as of 08/06/2023) Resolved Problems Problem Noted Date Diagnosed Date [...] as of this encounter (statuses as of 08/06/2023) Immunizations Name Administration Dates Next Due COVID-19 [...] encounter Miscellaneous Notes * Telephone Encounter - Nydia Remy top distribution executive - 08/06/2023 11:42 AM EDT Received message from [facility] regarding patient needing labs. Call Placed, Left message on voicemail advising of required labs Thank you for your assistance Nydia Remy Structural Steel Detailer II [facility] ([facility] (Formerly [facility]) 08/06/2023,11:42 AM * Telephone Encounter - Ronald De Santiago [facility] - 08/02/2023 12:23 PM EDTSigned Prescriptions: Disp Refills Ezetimibe 10 MG Oral Tablet (Zetia) 90 Tab*1 Sig: TAKE 1 TABLET BY MOUTH EVERY DAY IN THE MORNING Authorizing Provider: GARTH CHAUDHRY Ordering User: RONALD DE SANTIAGO * Telephone Encounter - Ronald De Santiago [facility] - 08/02/2023 12:17 PM EDT Reviewed AMP report, Care Gaps/Health Maintenance, medications list, and for any routine labs typically ordered for this patient. Lab orders placed 08/02/23 . Please contact patient to advise of labs ordered for blood draw AND URINE specimen (patient will have to be able to void to provide sample). Recommend patient to fast if able for labs. Patient may still have water and regular medications. Advise to obtain labs before her scheduled office visit 10/04/2023. Thanks, Sebastián Otero.Ph. Clinical Pharmacist [facility] [phone] ext [phone] 08/02/2023,12:22 PM documented in this encounter Plan of Treatment Upcoming Encounters Date Type Department Care Team (Late st Contact Info) Description 08/23/2023 9:20 AM EDT Office Visit Neurology [facility] [address] [facility] [place] [address] Kyle Ragland MD [address] [place] [address] 10/04/2023 1:00 PM EDT Office Visit General Internal Medicine [facility] [address] [facility] [place] [address] Garth Chaudhry MD [address] [facility] [place] [id number] Scheduled Orders Name Type Priority Associated Diagnoses Orde r Schedule ALBUMIN / CREATININE RATIO, URINE Lab Routine Stage 3a chronic kidney disease HTN, goal below 140/90 Expected: 08/03/2023 (Approximate), Expires: 08/01/2024 CBC Lab Routine Stage 3a chronic kidney disease HTN, goal below 140/90 Expected: 08/03/2023 (Approximate), Expires: 08/01/2024 PHOSPHORUS Lab Routine Stage 3a chronic kidney disease HTN, goal below 140/90 Expected: 08/03/2023 (Approximate), Expires: 08/01/2024 COMPREHENSIVE METABOLIC PANEL Lab Routine Stage 3a chronic kidney disease HTN, goal below 140/90 Encounter for long-term (current) use of medications Expected: 08/03/2023, Expires: 08/01/2024 LIPID PANEL WITH DIRECT LDL IF TG IS HIGH Lab Routine History of Graves' disease Hyperlipidemia with target LDL less than 160 Encounter for long-term (current) use of medications Expected: 08/03/2023 (Approximate), Expires: 08/01/2024 TSH WITH FREE T4 IF INDICATED Lab Routine History of Graves' disease Toxic diffuse goiter Encounter for long-term (current) use of medications Expected: 08/03/2023 (Approximate), Expires: 08/01/2024 Health Maintenance Due Date Last Done Comments Hepatitis C Screening 1968 DTaP,Tdap,and Td Vaccines (1 - Tdap) 1969 Colonoscopy 10/08/1995 Fecal Occult Blood Test 10/08/1995 Sigmoidoscopy 10/08/1995 Depression Screening 09/18/2021 09/18/2020 COVID-19 Vaccine ( season) 2023 01/13/2023, 05/13/2020, 04/22/2020 GFR 08/01/2023 01/31/2023, 11/06, 09/28/2022, Additional history exists Albumin/Creatinine Ratio 08/18/2023 023, 09/24/2021, 09/19/2020, Additional history exists CKD PHOS USE SMARTSET 02055 09/29/202309/05, 09/24/2021, 09/18/2020 CKD HGB USE SMARTSET 48681 12/03/202312/02, 12/02/2022, 08/06/2022, Additional history exists TSH [...] as of this encounter Visit Diagnoses Diagnosis Stage 3a chronic kidney disease- Primary History of Graves' disease Personal history of other endocrine, metabolic, and immunity disorders Toxic diffuse goiter Toxic diffuse goiter without mention of thyrotoxic crisis or storm Hyperlipidemia with target LDL less than 160 Other and unspecified hyperlipidemia HTN, goal below 140/90 Unspecified essential hypertension Encounter for long-term (current) use of medications Encounter for long-term (current) use of other medications documented in this encounter Care Teams Protection Chief Industrial Plant Relationship Specialty Start Date End Date Garth Chaudhry MD [address] [place] [address] PCP - General Internal Medicine 04/16/14 documented as of this encounter
--- OUTSIDE RECORDS SUMMARY | 2024-01-09 23:55 | External Medical Summary | Summary of Care ---
Author Name Unknown Organization [facility] Address [address] [place] [address] Phone [phone] Care Team Providers Care Supply Coordinator Name Role Phone Radha Chaudhry MD Primary Care Provider + Reason for Visit * Reason Onset Date Comments Advice 06/03/2023 Encounter Details Date Type Department Care Team (Late st Contact Info) Description 06/03/2023 Telephone General Internal Medicine [facility] [place] [address] [facility] [place] [address] Radha Chaudhry MD 200 [place] [address] Advice Allergies Active Allergy Reactions Criticality Noted Date Comments Iodine Hives Low 02/08/2023 Per Pt in [address] Scan and had a hive break out on her chest Simvastatin High 12/05/2008 Muscle pain documented as of this encounter (statuses as of 09/02/2023) Medications Medication Sig Dispensed Refills Start Date End Date Status B COMPLEX OR TABSIndications:To xic diffuse goiter 1 tab daily 0 5 Active Ventolin HFA 108 (90 Base) MCG/ACT Inhalation Aerosol SolutionIndication s:Pneumonia of both lungs due to infectious organism, unspecified part of lung Inhale 2 Puffs by mouth in the morning and 2 Puffs at noon and 2 Puffs in the evening and 2 Puffs before bedtime. 18 g 2 3 Active Spacer/Aero-Holdin g Chambers DeviceIndications: Pneumonia of both lungs due to infectious organism, unspecified part of lung Use with inhaler. 1 Each 3 Active Multivitamin Adults 50+ Oral Tablet Take 1 Tablet by mouth in the morning. Active Probiotic & Acidophilus Ex St Oral Capsule Take 1 Capsule by mouth in the morning. Active Levothyroxine Sodium 75 MCG Oral Tablet (Synthroid) Take 1 Tablet by mouth in the morning. (at least 30 min prior to breakfast or other meds) brand name only. 90 Tablet 3 4 Active Ezetimibe 10 MG Oral Tablet (Zetia) Take 1 Tablet by mouth in the morning. 90 Tablet 1 3 08/02/19 24 Discontinued Abrysvo 120 MCG/0.5ML Intramuscular Solution Reconstituted (RSV Pre-Fusion F A&B Vac Rcmb)Indications:N eed for RSV immunization Inject 0.5 mL into a large muscle once for 1 dose. 0.5 mL 4 06/06/19 24 Discontinued Losartan Potassium 100 MG Oral Tablet (Cozaar)Indication s:HTN, goal below 140/90 TAKE 1 TABLET BY MOUTH EVERY DAY IN THE MORNING 90 Tablet 1 4 07/18/19 24 Discontinued(Ref ill) documented as of this encounter (statuses as of 09/02/2023) Active Problems Problem Noted Date Diagnosed Date [...] as of this encounter (statuses as of 09/02/2023) Resolved Problems Problem Noted Date Diagnosed Date [...] as of this encounter (statuses as of 09/02/2023) Immunizations Name Administration Dates Next Due COVID-19 [...] encounter Miscellaneous Notes * Telephone Encounter - Zakia Patel LPN - 06/13/2023 9:14 AM EDT Patient calling to inquire on the pre-cert for the MRI of the brain. She just got off the phone with Jackeline with her insurance, [employer]. It was confirmed, the patient does need a pre-cert for the MRI. Appt today cancelled. Please assist with the MRI auth. Email sent to Cain Jewell as well. * Telephone Encounter - Bobbi Looney LPN - 06/10/2023 3:21 PM EDT Pt calling to check on previous message. In the past, she's needed approval with insurance for other MRIs. If she doesn't hear back by Monday 06/12 about prior auth response, she will need to cancel her appt for the MRI. Please contact pt with prior auth response. * Telephone Encounter - Radha Chaudhry MD - 06/03/2023 8:04 PM EDT Can follow up with prior auth and update patient. * Telephone Encounter - Bobbi Looney LPN - 06/03/2023 11:47 AM EDT Pt calling as she has an MRI scheduled for 06/13 at . She would like to make sure a the prior auth was approved. She has not heard anything from her insurance company. Please advise. documented in this encounter Plan of Treatment Upcoming Encounters Date Type Department Care Team (Late st Contact Info) Description 10/04/2023 1:00 PM EDT Office Visit General Internal Medicine [facility] [address] [facility] [place] [address] Radha Chaudhry MD [address] [facility] [place] [address] 02/23/2024 10:00 AM EST Office Visit Neurology [facility] [address] [place] [address] Kyle Ragland MD [address], [place] [id number] Health Maintenance Due Date Last Done Comments Hepatitis C Screening 1968 DTaP,Tdap,and Td Vaccines (1 - Tdap) 1969 Colonoscopy 10/08/1995 Fecal Occult Blood Test 10/08/1995 Sigmoidoscopy 10/08/1995 Depression Screening 09/18/2021 09/18/2020 COVID-19 Vaccine (24 season) 2023 01/13/2023, 05/13/2020, 04/22/2020 Albumin/Creatinine Ratio 08/18/2023 023, 09/24/2021, 09/19/2020, Additional history exists CKD PHOS USE SMARTSET 49668 09/29/202309/05, 09/24/2021, 09/18/2020 TSH 12/03/2023 12/02/2022, 08/05, 03/05/2021, Additional history exists Mammogram 12/28/2023 12/27/2022, 12/06, 12/22/2020, Additional history exists GFR 02/21/2024 08/22/2023, 01/06, 12/02/2022, Additional history exists CKD HGB USE SMARTSET 67151 08/21/202408/21, 12/02/2022, 12/02/2022, Additional history exists Cologuard [...] filedocumented as of this encounter Care Teams Supply Coordinator Relationship Specialty Start Date End Date Radha Chaudhry MD [address] [place] [address] PCP - General Internal Medicine 04/16/14 documented as of this encounter
--- OUTSIDE RECORDS SUMMARY | 2024-01-09 23:55 | External Medical Summary ---
Author Name Unknown Address Unknown Organization K01:[facility] - [address] [place] [address] Laboratory Report Ordering Provider Test Date Status JONNATHAN CARDENAS 09/26/2023 11:55:41 Final Observation Date Value Abnormality Reference (Units ) Status Phosphate 09/26/2023 11:55:41 3.1 2.5-4.8 (m g/dL) Final Performing Location [facility] - [address] [place] [address]
--- OUTSIDE RECORDS SUMMARY | 2024-01-09 23:55 | External Medical Summary | Summary of Care ---
Author Name Unknown Organization [facility] Address [address] [place] [address] Phone [phone] Care Team Providers Care Safety Patrol Officer Name Role Phone Radha Chaudhry MD Primary Care Provider + Reason for Visit * Reason Onset Date Comments Medication Refill 09/14/2023 Encounter Details Date Type Department Care Team (Late st Contact Info) Description [facility] [address] [place] [address] Kyle Ulrich MD [address] [place] [address] Parkinson's disease without dyskinesia or [...] at 7AM-11:30AM-5: 30PM 270 Tablet 09/14/2023 Active Carbidopa-Levodopa 25-100 MG Oral Tablet (Sinemet)Indications :Parkinson's disease without dyskinesia or fluctuating manifestations (HCC) Take 1 tablet per mouth three times a day at 7AM-11:30AM-5: 30PM 90 Tablet 5 08/23/2023 4 Discontinue d(Refill) documented as of this [...] encounter Miscellaneous Notes * Telephone Encounter - Jenny Shah [facility] - 09/14/2023 8:29 AM EDTSigned Prescriptions: Disp Refills Carbidopa-Levodopa 25-100 MG Oral Tablet (*270 Ta*0 Sig: Take 1 tablet per mouth three times a day at 7AM-11:30AM-5:30PMAuthorizing Provider: Augustine ULRICHUser: JENNY SHAH * Addendum Note - Jenny Shah [facility] - 09/14/2023 8:29 AM EDTAddended by: JENNY SHAH on: 09/14/2023 08:29 AM Modules accepted: Orders * Telephone Encounter - Jenny Shah [facility] - 09/14/2023 8:28 AM EDT Reissued balance of refills on current medication order(s) as a 90 day script. Jenny Tapia PharmD Clinical Pharmacist [facility] ([facility]) [phone] 09/14/2023, 8:28 AM * Addendum Note - Tammi Ziegler CPhT [...] 09:03 AM * Telephone Encounter - Emma Cuevas, spectrographer - 09/14/2023 8:22 AM EDT Patient calling for a refill on Carbidopa-Levodopa. This was last prescribed by neurology. Transfer to specialty refill line. Thank you, Emma Cuevas Residential Appliance Repair Technician I [facility] ([facility]) 09/14/2023,8:23 AM documented in this encounter Plan of Treatment Upcoming Encounters Date Type Department Care Team (Late st Contact Info) Description 10/04/2023 1:00 PM EDT Office Visit General Internal Medicine [facility] [address] [place] [address] Radha Chaudhry MD [address] [place], [place] [address] 02/23/2024 10:00 AM EST Office Visit Neurology [facility] [address] [place] [address] Kyle Ulrich MD [address] [place] [address] Health Maintenance Due Date Last Done Comments Hepatitis C Screening 1968 DTaP,Tdap,and Td Vaccines (1 - Tdap) 1969 Colonoscopy 10/08/1995 Fecal Occult Blood Test 10/08/1995 Sigmoidoscopy 10/08/1995 Depression Screening 09/18/2021 09/18/2020 COVID-19 Vaccine (2022- season) 2023 01/13/2023, 05/13/2020, 04/22/2020 Albumin/Creatinine Ratio 08/18/2023 023, 09/24/2021, 09/19/2020, Additional history exists CKD PHOS USE SMARTSET 96161 09/29/202309/05, 09/24/2021, 09/18/2020 Influenza Vaccine (FLU shot) (#1) 2023 01/24/2023, 01/24/2023, 11/30/2019, Additional history exists TSH 12/03/2023 12/02/2022, 08/05, 03/05/2021, Additional history exists Mammogram 12/28/2023 12/27/2022, 12/06, 12/22/2020, Additional history exists GFR 02/21/2024 08/22/2023, 01/06, 12/02/2022, Additional history exists CKD HGB USE SMARTSET 04391 08/21/202408/21, 12/02/2022, 12/02/2022, Additional history exists Cologuard [...] (HCC) documented in this encounter Care Teams Safety Patrol Officer Relationship Specialty Start Date End Date Radha Chaudhry MD [address] [place] [address] PCP - General Internal Medicine 04/16/14 documented as of this encounter
--- OUTSIDE RECORDS SUMMARY | 2024-01-09 23:55 | External Medical Summary | Summary of Care ---
Author Name Unknown Organization [facility] Address [address] [place] [address] Phone [phone] Care Team Providers Care Revenue Cycle Consultant Name Role Phone Radha Chaudhry MD Primary Care Provider + Reason for Visit * Reason Onset Date Comments Medication Problem 07/18/2023 Encounter Details Date Type Department Care Team (Late st Contact Info) Description 07/18/2023 Telephone General Internal Medicine [facility] [place] [address] [facility] [place] [address] Rad[facility] [address] Medication Problem Allergies Active Allergy Reactions Criticality Noted Date Comments Iodine Hives Low 02/08/2023 Per Pt in [address] Scan and had a hive break out on her chest Simvastatin High 12/05/2008 Muscle pain documented as of this encounter (statuses as of 07/20/2023) Medications Medication Sig Dispensed Refills Start Date [...] by mouth in the morning. 0 Active Losartan Potassium 100 MG Oral Tablet (Cozaar)Indicatio ns:HTN, goal below 140/90 TAKE 1 TABLET BY MOUTH EVERY DAY IN THE MORNING 90 Tablet 1 07/19/2023 Active Losartan Potassium 100 MG Oral Tablet (Cozaar)Indicatio ns:HTN, goal below 140/90 TAKE 1 TABLET BY MOUTH EVERY DAY IN THE MORNING 90 Tablet 1 05/16/2023 07/18/2023 Discontinued (Refill) documented as of this encounter (statuses as of 07/20/2023) Active Problems Problem Noted Date Diagnosed Date [...] as of this encounter (statuses as of 07/20/2023) Resolved Problems Problem Noted Date Diagnosed Date [...] as of this encounter (statuses as of 07/20/2023) Immunizations Name Administration Dates Next Due COVID-19 [...] encounter Miscellaneous Notes * Telephone Encounter - Tere Haynes MED ASSIST - 07/19/2023 2:21 PM EDT Patient aware and verbalized understanding Pt states it is the losartan and she will not be continuing it. I reiterated the note below severaltimes * Telephone Encounter - Radha Chaudhry MD - 07/19/2023 1:04 PM EDT I doubt its losartan giving her swealling. I would continue and advise on low salt, leg elevation and if any further symptoms including but not limited to sob then needs office visit. ER if severe s/s. 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 Swelling started in ankles, golf ball in ankle and swelling in top of foot. Stopped losartan for 4 days. Swelling went down. Previous losartan was round/white S113. Per [employer] this is the [employer] brand. New morning show newscast producer was white tear drop. Patient leaves for vacation on Tuesday. Pended new rx with note to pharmacy to dispense preferred morning show newscast producer. Please approve if appropriate and agreeable. Please advise if patient should continue losartan or if additional work up needs to be done for swelling in feet. Thanks, Mason Oscar, No Clinical Pharmacist [facility](formerly telepharmacy) [phone] 07/18/2023, 1:25 PM * Telephone Encounter - Reji Walters, flatwork feeder - 07/18/2023 1:13 PM EDT Patient called in with side effects from Losartan Potassium 100 MG Oral Tablet (Cozaar) . Warm transferred to [facility] for consultation. Patient retaining fluid. She was switched manufacturers and thinks that could be the reason. Thank you, Shahid Walters, Book Store Associate Manager Ship 1 [facility] ([facility]) (Formerly Telepharmacy) 07/18/2023,1:13 PM documented in this encounter Plan of Treatment Upcoming Encounters Date Type Department Care Team (Late st Contact Info) Description 08/23/2023 9:20 AM EDT Office Visit Neurology [facility] [place] [address] [place] [address] Kyle Ragland MD [address] [place] [facility] [place] [address] 10/04/2023 1:00 PM EDT Office Visit General Internal Medicine [facility] [place] [address] [place] [address] Radha Chaudhry MD [address] [place] [address] Health Maintenance Due Date Last Done Comments Hepatitis C Screening 1968 DTaP,Tdap,and Td Vaccines (1 - Tdap) 1969 Colonoscopy 10/08/1995 Fecal Occult Blood Test 10/08/1995 Sigmoidoscopy 10/08/1995 Depression Screening 09/18/2021 09/18/2020 GFR 08/01/2023 01/31/2023, 11/06, 09/28/2022, Additional history exists Albumin/Creatinine Ratio 08/18/2023 023, 09/24/2021, 09/19/2020, Additional history exists CKD PHOS USE SMARTSET 14226 09/29/202309/05, 09/24/2021, 09/18/2020 CKD HGB USE SMARTSET 14995 12/03/202312/02, 12/02/2022, 08/06/2022, Additional history exists TSH [...] encounter Visit Diagnoses Diagnosis HTN, goal below 140/90 Unspecified essential hypertension documented in this encounter Care Teams Revenue Cycle Consultant Relationship Specialty Start Date End Date Radha Chaudhry MD [address] [facility] [place] [address] PCP - General Internal Medicine 04/16/14 documented as of this encounter
--- OUTSIDE RECORDS SUMMARY | 2024-01-09 23:55 | External Medical Summary | Summary of Care ---
Author Name Unknown Organization [facility] Address [address] [place] [address] Phone [phone] Care Team Providers Care Law Firm Partner Name Role Phone Radha Chaudhry MD Primary Care Provider + Encounter Details Date Type Department Care Team (Late st Contact Info) Description 08/24/2023 Orders Only General Internal Medicine [facility] [place] [address] [facility] [place] [address] Radha Chaudhry MD 200 [place] [address] Allergies Active Allergy Reactions Criticality Noted Date [...] PM EDT Office Visit General Internal Medicine [facility] [address] [place] [address] Radha Chaudhry MD [address] [place] [address] 02/23/2024 10:00 AM EST Office Visit Neurology [facility] [address] [place] [address] Kyle Ragland MD [address] [place] [address] Health Maintenance Due Date Last Done Comments Hepatitis C Screening 1968 DTaP,Tdap,and Td Vaccines (1 - Tdap) 1969 Colonoscopy 10/08/1995 Fecal Occult Blood Test 10/08/1995 Sigmoidoscopy 10/08/1995 Depression Screening 09/18/2021 09/18/2020 COVID-19 Vaccine ( season) 2023 01/13/2023, 05/13/2020, 04/22/2020 GFR 08/01/2023 08/22/2023, 01/06, 12/02/2022, Additional history exists Albumin/Creatinine Ratio 08/18/2023 023, 09/24/2021, 09/19/2020, Additional history exists CKD PHOS USE SMARTSET 69153 09/29/202309/05, 09/24/2021, 09/18/2020 CKD HGB USE SMARTSET 86811 12/03/202308/21, 12/02/2022, 12/02/2022, Additional history exists TSH 12/03/2023 12/02/2022, 08/05, [...] Procedure Name Priority Date/Time Associated Diagnosis Comments CHEMISTRY-OUTSIDE Routine 08/22/2023 documented in this encounter Results * (ABNORMAL) CHEMISTRY-OUTSIDE (08/22/2023) Not all results display below - see scan for full detail OUTSIDE LAB (SEE SCANNED REPORT) Comment:SEE SCAN - CMP, CBCD , CREATININE-OUTSID E LAB 1.18(A) 0.55 - 1.02 MG/DL OUTSIDE LAB (SEE SCANNED REPORT) EGFR-OUTSIDE LAB 49 ML/MIN OUT SIDE LAB (SEE SCANNED REPORT) POTASSIUM-OUTSIDE LAB 4.0 3.5 - 5.1 MMOL/L OUTSIDE LAB (SEE SCANNED REPORT) GLUCOSE-OUTSIDE LAB 68(A) 70 - 110 MG/DL OUTSIDE LAB (SEE SCANNED REPORT) HOURS FASTING OUTSID E LAB (SEE SCANNED REPORT) TRIGLYCERIDES-OUT SIDE LAB OUTSIDE LAB (SEE SCANNED REPORT) CHOLESTEROL-OUTSI DE LAB OUTSIDE LAB (SEE SCANNED REPORT) HDL-OUTSIDE LAB OUTS BRIA LAB (SEE SCANNED REPORT) CHOL/HDL RATIO-OUTSIDE LAB OUTSIDE LA B (SEE SCANNED REPORT) LDL (CALCULATED)-OUTS BRIA LAB OUTSIDE LAB (SEE SCANNED REPORT) LDL (DIRECT MEASURE)-OUTSIDE LAB OUTSIDE LAB (SEE SCANNED REPORT) HEMOGLOBIN, [id number] LAB OUTSIDE LAB (SEE SCANNED REPORT) PHOSPHORUS-OUTSID E LAB OUTSIDE LAB (SEE SCANNED REPORT) PTH-OUTSIDE LAB OUTS BRIA LAB (SEE SCANNED REPORT) MICROALBUMIN RATIO-OUTSIDE LAB OUTSIDE LA B (SEE SCANNED REPORT) PROTEIN, UA-OUTSIDE LAB OUTSIDE LAB (SEE SCANNED REPORT) HGB 12.7 12.0 - 16.0 G/DL OUTSIDE LAB (SEE SCANNED REPORT) 08/22/2023 [facility] OUTSIDE LAB (SEE SCANNED REPORT) documented in this encounter Care Teams Law Firm Partner Relationship Specialty Start Date End Date Radha Chaudhry MD [address] [place] [address] PCP - General Internal Medicine 04/16/14 documented as of this encounter
--- OUTSIDE RECORDS SUMMARY | 2024-01-09 23:55 | External Medical Summary | Summary of Care ---
Author Name Unknown Organization [facility] Address [address] [place] [address] Phone [phone] Care Team Providers Care Neck Band Operator Name Role Phone Radha Chaudhry MD Primary Care Provider + Encounter Details Date Type Department Care Team (Late st Contact Info) Description 08/05/2023 Orders Only PATIENT PORTAL DO NOT DELETE [id number] Allergies Active Allergy Reactions Criticality Noted Date Comments Iodine Hives Low 02/08/2023 Per Pt in [address] Scan and had a hive break out on her chest Simvastatin High 12/05/2008 Muscle pain documented as of this encounter (statuses as of 08/05/2023) Medications Medication Sig Dispensed Refills Start Date [...] as of this encounter (statuses as of 08/05/2023) Active Problems Problem Noted Date Diagnosed Date [...] as of this encounter (statuses as of 08/05/2023) Resolved Problems Problem Noted Date Diagnosed Date [...] as of this encounter (statuses as of 08/05/2023) Immunizations Name Administration Dates Next Due COVID-19 [...] 08/23/2023 9:20 AM EDT Office Visit Neurology [facility] [address] [place] [address] Kyle Ragland MD [address] [place] [address] 10/04/2023 1:00 PM EDT Office Visit General Internal Medicine [facility] [address] [place] [address] Radha Chaudhry MD [address] [place] [address] Health Maintenance Due Date Last Done Comments Hepatitis C Screening 1968 DTaP,Tdap,and Td Vaccines (1 - Tdap) 1969 Colonoscopy 10/08/1995 Fecal Occult Blood Test 10/08/1995 Sigmoidoscopy 10/08/1995 Depression Screening 09/18/2021 09/18/2020 COVID-19 Vaccine ( season) 2023 01/13/2023, 05/13/2020, 04/22/2020 GFR 08/01/2023 01/31/2023, 11/06, 09/28/2022, Additional history exists Albumin/Creatinine Ratio 08/18/2023 023, 09/24/2021, 09/19/2020, Additional history exists CKD PHOS USE SMARTSET 55019 09/29/202309/05, 09/24/2021, 09/18/2020 CKD HGB USE SMARTSET 82765 12/03/202312/02, 12/02/2022, 08/06/2022, Additional history exists TSH [...] filedocumented as of this encounter Care Teams Neck Band Operator Relationship Specialty Start Date End Date Radha Chaudhry MD [address] [place] [address] PCP - General Internal Medicine 04/16/14 documented as of this encounter
--- OUTSIDE RECORDS SUMMARY | 2024-01-09 23:55 | External Medical Summary ---
Author Name Unknown Address Unknown Organization K01:[facility] - [address] [facility] [address] [facility] [address] [place] [address] Laboratory Report Ordering Provider Test Date Status JONNATHAN CARDENAS 09/26/2023 11:55:41 Final Observation Date Value Abnormality Reference (Units ) Status TSH 09/26/2023 11:55:41 0.10 Below low normal 0.2 7-4.20 (uIU/mL) Final Performing Location [facility] - [address] [place] [address]
--- OUTSIDE RECORDS SUMMARY | 2024-01-09 23:55 | External Medical Summary ---
Author Name Unknown Address Unknown Organization K01:[facility] [address] [facility] [address] Laboratory Report Ordering Provider Test Date Status RONALDJONNATHAN 09/26/2023 11:55:41 Final Observation Date Value Abnormality Reference (Units ) Status Triglyceride 09/26/2023 11:55:41 97 <=174 ( mg/dL) Final Triglyceride Reference Range s (mg/dL):
<150 Acceptable
150-174 Borderline high
175-499 High
>=500 Very high Cholesterol 09/26/2023 11:55:41 165 <200 (mg /dL) Final Total Cholesterol Reference Ranges (mg/dL):
<200 Desirable
200-239 Borderline high
>=240 High HDL 09/26/2023 11:55:41 48 Below low normal >49 (mg/dL) Final HDL Cholesterol Reference Ra nges (mg/dL):
>=60 High (Desirable)
<50 Low (Undesirable) For Females
<40 Low (Undesirable) For Males NON-HDL CHOLESTEROL 09/26/2023 11:55:41 117 <=159 (mg/dL) Final Non-HDL Cholesterol Referenc e Range (mg/dL):
<100 Target level for high risk ASCVD patient
<130 Optimal for general population
130-159 Near optimal for general population
160-189 Borderline High
190-219 High
>=220 Very High LDL, (calculated) 09/26/2023 11:55:41 98 <= 129 (mg/dL) Final LDL Cholesterol Reference Ra nges (mg/dL):
<70 Target level for high risk ASCVD patient
<100 Optimal for general population
100-129 Near optimal for general population
130-159 Borderline high
160-189 High
>=190 Very high Performing Location [facility] - [address] [facility] [address]
--- OUTSIDE RECORDS SUMMARY | 2024-01-09 23:55 | External Medical Summary | Summary of Care ---
Author Name Unknown Organization [facility] Address [address] [place] [address] Phone [phone] Care Team Providers Care Hairpiece Stylist Name Role Phone Radha Chaudhry MD Primary Care Provider + Reason for Visit * Reason Comments Outpatient Testing Encounter Details Date Type Department Care Team (Late st Contact Info) Description 09/26/2023 12:10 PM EDT Laboratory Laboratory [address] [place] [id number] [place], Lab [address] [place] [address] Stage 3a chronic kidney disease; HTN, goal below 140/90; Encounter for long-term (current) use of medications; History of Graves' disease; Hyperlipidemia with target LDL less than 160; Toxic diffuse goiter Allergies Active Allergy Reactions Criticality Noted Date Comments Iodine Hives Low 02/08/2023 Per Pt in [address] Scan and had a hive break out on her chest Simvastatin High 12/05/2008 Muscle pain documented as of this encounter (statuses as of 09/26/2023) Medications Medication Sig Dispensed Refills Start Date [...] at 7AM-11:30AM-5:30 PM 270 Tablet 09/14/2023 Active documented as of this encounter (statuses as of 09/26/2023) Active Problems Problem Noted Date Diagnosed Date [...] as of this encounter (statuses as of 09/26/2023) Resolved Problems Problem Noted Date Diagnosed Date [...] as of this encounter (statuses as of 09/26/2023) Immunizations Name Administration Dates Next Due COVID-19 [...] Office Visit General Internal Medicine [facility] [address] [place] [address] Radha Chaudhry MD [address] [place] [address] 02/23/2024 10:00 AM EST Office Visit Neurology [facility] [employer] [address] [place] [address] Kyle Ragland MD [address] [place] [address] Pending Results Name Type Priority Associated Diagnoses Date /Time ALBUMIN / CREATININE RATIO, URINE Lab Routine Stage 3a chronic kidney disease HTN, goal below 140/90 09/26/2023 11:55 AM EDT CBC Lab Routine Stage 3a chronic kidney disease HTN, goal below 140/90 09/26/2023 11:55 AM EDT PHOSPHORUS Lab Routine Stage 3a chronic kidney disease HTN, goal below 140/90 09/26/2023 11:55 AM EDT COMPREHENSIVE METABOLIC PANEL Lab Routine Stage 3a chronic kidney disease HTN, goal below 140/90 Encounter for long-term (current) use of medications 09/26/2023 11:55 AM EDT LIPID PANEL WITH DIRECT LDL IF TG IS HIGH Lab Routine History of Graves' disease Hyperlipidemia with target LDL less than 160 Encounter for long-term (current) use of medications 09/26/2023 11:55 AM EDT TSH WITH FREE T4 IF INDICATED Lab Routine History of Graves' disease Toxic diffuse goiter Encounter for long-term (current) use of medications 09/26/2023 11:55 AM EDT Health Maintenance Due Date Last Done Comments Hepatitis C Screening 1968 DTaP,Tdap,and Td Vaccines (1 - Tdap) 1969 Colonoscopy 10/08/1995 Fecal Occult Blood Test 10/08/1995 Sigmoidoscopy 10/08/1995 Depression Screening 09/18/2021 09/18/2020 COVID-19 Vaccine ( season) 2023 01/13/2023, 05/13/2020, 04/22/2020 Albumin/Creatinine Ratio 08/18/2023 023, 09/24/2021, 09/19/2020, Additional history exists CKD PHOS USE SMARTSET 21783 09/29/202309/05, 09/24/2021, 09/18/2020 Influenza Vaccine (FLU shot) (#1) 2023 01/24/2023, 01/24/2023, 11/30/2019, Additional history exists TSH 12/03/2023 12/02/2022, 08/05, 03/05/2021, Additional history exists Mammogram 12/28/2023 12/27/2022, 12/06, 12/22/2020, Additional history exists GFR 02/21/2024 08/22/2023, 01/06, 12/02/2022, Additional history exists CKD HGB USE SMARTSET 04131 08/21/202408/21, 12/02/2022, 12/02/2022, Additional history exists Cologuard [...] Visit Diagnoses Diagnosis Stage 3a chronic kidney disease HTN, goal below 140/90 Unspecified essential hypertension Encounter for long-term (current) use of medications Encounter for long-term (current) use of other medications History of Graves' disease Personal history of other endocrine, metabolic, and immunity disorders Hyperlipidemia with target LDL less than 160 Other and unspecified hyperlipidemia Toxic diffuse goiter Toxic diffuse goiter without mention of thyrotoxic crisis or storm documented in this encounter Care Teams Hairpiece Stylist Relationship Specialty Start Date End Date Radha Chaudhry MD [address] [place] [address] PCP - General Internal Medicine 04/16/14 documented as of this encounter
--- OUTSIDE RECORDS SUMMARY | 2024-01-09 23:55 | External Medical Summary ---
Author Name Unknown Address Unknown Organization K01:[facility] [place] [address] [facility] [address] Laboratory Report Ordering Provider Test Date Status RONALDANTONIETA LAGUNAANH 09/26/2023 11:55:41 Final Observation Date Value Abnormality Reference (Units ) Status WBC, Total 09/26/2023 11:55:41 4.72 4.00-10.80 (K/uL) Final RBC 09/26/2023 11:55:41 3.98 3.85-5.15 (M/uL) Final Hemoglobin 09/26/2023 11:55:41 12.1 12.0-15.3 (g/dL) Final HCT 09/26/2023 11:55:41 38.6 36.0-45.2 (%) Final MCV 09/26/2023 11:55:41 97.0 81.5-97.5 (fL) Final MCH 09/26/2023 11:55:41 30.4 27.0-34.0 (pg) Final MCHC 09/26/2023 11:55:41 31.3 32.0-36.0 (g/dL) Final RDW 09/26/2023 11:55:41 12.4 11.5-15.5 (%) Final Platelets 09/26/2023 11:55:41 201 140-400 (K/uL) Final MPV 09/26/2023 11:55:41 9.8 6.6-11.1 (fL) Final Nucleated erythrocytes/100 leukocytes [Ratio] in Blood by Automated count 09/26/2023 11:55:41 0 <=0 (/100 WBCs) Final Performing Location [facility] [place] [address] [place] [address]
--- OUTSIDE RECORDS SUMMARY | 2024-01-09 23:55 | External Medical Summary | Summary of Care ---
Author Name Unknown Organization [facility] Address [address] [place] [address] Phone [phone] Care Team Providers Care Section Gang Name Role Phone Radha Chaudhry MD Primary Care Provider + Reason for Visit * Reason Onset Date Comments Medication Problem 07/18/2023 Encounter Details Date Type Department Care Team (Late st Contact Info) Description 07/18/2023 Telephone General Internal Medicine [facility] [place] [address] [facility] [place] [address] Rad[facility] [address] [facility] [address] Medication Problem Allergies Active Allergy Reactions Criticality [...] Telephone Encounter - Radha Chaudhry MD - 07/20/2023 12:36 PM EDT Noted. Keep scheduled f/u. Will discuss further at next visit. * Telephone Encounter - Tere Haynes MED [...] s/s. * Telephone Encounter - Mason Oscar [facility] - 07/18/2023 1:18 PM EDT Patient calling to inform office she is experiencing side effects from a new senior scheduler of losartan. Patient started new senior scheduler about a 2 weeks ago. Swelling started in ankles, golf ball in ankle and swelling in top of foot. Stopped losartan for 4 days. Swelling went down. Previous losartan was round/white S113. Per [employer] this is the [employer] brand. New senior scheduler was white tear drop. Patient leaves for vacation on Tuesday. Pended new rx with note to pharmacy to dispense preferred senior scheduler. Please approve if appropriate and agreeable. Please advise if patient should continue losartan or if additional work up needs to be done for swelling in feet. Thanks, Mason Oscar, PharmD Clinical Pharmacist [facility](formerly telepharmacy) [phone] 07/18/2023, 1:25 PM * Telephone Encounter - Reji Walters staging technician - 07/18/2023 1:13 PM EDT Patient called in with side effects from Losartan Potassium 100 MG Oral Tablet (Cozaar) . Warm transferred to [facility] for consultation. Patient retaining fluid. She was switched manufacturers and thinks that could be the reason. Thank you, Shahid Walters, Rock Cutter Manager Child 1 [facility] ([facility]) (Formerly Telepharmacy) 07/18/2023,1:13 PM documented in this encounter Plan of Treatment Upcoming Encounters Date Type Department Care Team (Late st Contact Info) Description 08/23/2023 9:20 AM EDT Office Visit Neurology [facility] [place] [address] [facility] [place] [address] [facility] [address] [facility] [address] 10/04/2023 1:00 PM EDT Office Visit General Internal Medicine [facility] [place] [address] [place], [place] [address] Radha Chaudhry MD [address] [facility] [place], [place] [address] Health Maintenance Due Date Last Done Comments Hepatitis C Screening 1968 DTaP,Tdap,and Td Vaccines (1 - Tdap) 1969 Colonoscopy 10/08/1995 Fecal Occult Blood Test 10/08/1995 Sigmoidoscopy 10/08/1995 Depression Screening 09/18/2021 09/18/2020 GFR 08/01/2023 01/31/2023, 11/06, 09/28/2022, Additional history exists Albumin/Creatinine Ratio 08/18/2023 023, 09/24/2021, 09/19/2020, Additional history exists CKD PHOS USE SMARTSET 96713 09/29/202309/05, 09/24/2021, 09/18/2020 CKD HGB USE SMARTSET 64933 12/03/202312/02, 12/02/2022, 08/06/2022, Additional history exists TSH [...] hypertension documented in this encounter Care Teams Section Gang Relationship Specialty Start Date End Date Radha Chaudhry MD [address] [facility] [place] [address] PCP - General Internal Medicine 04/16/14 documented as of this encounter
--- OUTSIDE RECORDS SUMMARY | 2024-01-09 23:55 | External Medical Summary | Summary of Care ---
Author Name Unknown Organization [facility] Address [address] [place] [address] Phone [phone] Care Team Providers Care Rope Silica Machine Operator Name Role Phone Radha Chaudhry MD Primary Care Provider + Reason for Visit * Reason Onset Date Comments Test Results 07/18/2023 Encounter Details Date Type Department Care Team (Late st Contact Info) Description 07/18/2023 Telephone General Internal Medicine [facility] [place] [address] [facility] [place] [address] Radha Chaudhry MD [address] [place] [address] Test Results Allergies Active Allergy Reactions Criticality Noted Date Comments Iodine Hives Low 02/08/2023 Per Pt in [address] Scan and had a hive break out on her chest Simvastatin High 12/05/2008 Muscle pain documented as of this encounter (statuses as of 07/18/2023) Medications Medication Sig Dispensed Refills Start Date [...] as of this encounter (statuses as of 07/18/2023) Active Problems Problem Noted Date Diagnosed Date [...] as of this encounter (statuses as of 07/18/2023) Resolved Problems Problem Noted Date Diagnosed Date [...] as of this encounter (statuses as of 07/18/2023) Immunizations Name Administration Dates Next Due COVID-19 [...] Encounter - Tere Haynes MED ASSIST - 07/18/2023 6:31 PM EDT Patient aware and verbalized understanding * Telephone Encounter - eTre Haynes MED ASSIST - 07/18/2023 6:29 PM EDT ----- Message from Radha Chaudhry MD sent at 07/14/2023 3:24 PM EDT ----- MRI Brain shows no major or acute changes. documented in this encounter Plan of Treatment Upcoming Encounters Date Type Department Care Team (Late st Contact Info) Description 08/23/2023 9:20 AM EDT Office Visit Neurology [facility] [address] [place] [address] Kyle Ragland MD [address] [place] [address] 10/04/2023 1:00 PM EDT Office Visit General Internal Medicine [facility] [address] [place] [address] Radha Chaudhry MD [address] [place] [id number] Health Maintenance Due Date Last Done Comments Hepatitis C Screening 1968 DTaP,Tdap,and Td Vaccines (1 - Tdap) 1969 Colonoscopy 10/08/1995 Fecal Occult Blood Test 10/08/1995 Sigmoidoscopy 10/08/1995 Depression Screening 09/18/2021 09/18/2020 GFR 08/01/2023 01/31/2023, 11/06, 09/28/2022, Additional history exists Albumin/Creatinine Ratio 08/18/2023 023, 09/24/2021, 09/19/2020, Additional history exists CKD PHOS USE SMARTSET 64186 09/29/202309/05, 09/24/2021, 09/18/2020 CKD HGB USE SMARTSET 66900 12/03/202312/02, 12/02/2022, 08/06/2022, Additional history exists TSH [...] filedocumented as of this encounter Care Teams Rope Silica Machine Operator Relationship Specialty Start Date End Date Radha Chaudhry MD [address] [place] [address] PCP - General Internal Medicine 04/16/14 documented as of this encounter
--- OUTSIDE RECORDS SUMMARY | 2024-01-09 23:55 | External Medical Summary | Summary of Care ---
Author Name Unknown Organization [facility] Address [address] [place] [address] Phone [phone] Care Team Providers Care Health Assessment And Treatment Teacher Name Role Phone Radha Chaudhry MD Primary Care Provider + Reason for Visit * Reason Onset Date Comments Medication Refill 09/14/2023 Encounter Details Date Type Department Care Team (Late st Contact Info) Description [facility] [address] [place] [address] Kyle Ulrich MD [address] [place] [address] Parkinson's disease without dyskinesia or [...] Notes * Telephone Encounter - Jenny Shah [facility] - 09/14/2023 8:29 AM EDTSigned Prescriptions: Disp Refills Carbidopa-Levodopa 25-100 MG Oral Tablet (*270 Ta*0 Sig: Take 1 tablet per mouth three times a day at 7AM-11:30AM-5:30PMAuthorizing Provider: Augustine ULRICHUser: JENNY SHAH * Addendum Note - Jenny Shah [facility] - 09/14/2023 8:29 AM EDTAddended by: JENNY SHAH on: 09/14/2023 08:29 AM Modules accepted: Orders * Telephone Encounter - Jenny Shah [facility] - 09/14/2023 8:28 AM EDT Reissued balance of refills on current medication order(s) as a 90 day script. Jenny Tapia PharmD Clinical Pharmacist [facility] ([facility]) [phone] 09/14/2023, 8:28 AM * Addendum Note - [...] AM * Telephone Encounter - Emma Cuevas, venue attendant - 09/14/2023 8:22 AM EDT Patient calling for a refill on Carbidopa-Levodopa. This was last prescribed by neurology. Transfer to specialty refill line. Thank you, Emma Cuevas Merchandise Carrier I [facility] ([facility]) 09/14/2023,8:23 AM documented in this encounter Plan of Treatment Upcoming Encounters Date Type Department Care Team (Late st Contact Info) Description 10/04/2023 1:00 PM EDT Office Visit General Internal Medicine [facility] [place] [address] [place] [address] Radha Chaudhry MD [address] [place], [place] [address] 02/23/2024 10:00 AM EST Office Visit Neurology [facility] [address] [facility] [place] [address] Kyle Ulrich MD [address] [place] [address] Health Maintenance Due Date Last Done Comments Hepatitis C Screening 1968 DTaP,Tdap,and Td Vaccines (1 - Tdap) 1969 Colonoscopy 10/08/1995 Fecal Occult Blood Test 10/08/1995 Sigmoidoscopy 10/08/1995 Depression Screening 09/18/2021 09/18/2020 COVID-19 Vaccine (2022- season) 2023 01/13/2023, 05/13/2020, 04/22/2020 Albumin/Creatinine Ratio 08/18/2023 023, 09/24/2021, 09/19/2020, Additional history exists CKD PHOS USE SMARTSET 33559 09/29/202309/05, 09/24/2021, 09/18/2020 Influenza Vaccine (FLU shot) (#1) 2023 01/24/2023, 01/24/2023, 11/30/2019, Additional history exists TSH 12/03/2023 12/02/2022, 08/05, 03/05/2021, Additional history exists Mammogram 12/28/2023 12/27/2022, 12/06, 12/22/2020, Additional history exists GFR 02/21/2024 08/22/2023, 01/06, 12/02/2022, Additional history exists CKD HGB USE SMARTSET 43745 08/21/202408/21, 12/02/2022, 12/02/2022, Additional history exists Cologuard [...] (HCC) documented in this encounter Care Teams Health Assessment And Treatment Teacher Relationship Specialty Start Date End Date Radha Chaudhry MD [address] [place] [address] PCP - General Internal Medicine 04/16/14 documented as of this encounter
--- OUTSIDE RECORDS SUMMARY | 2024-01-09 23:55 | External Medical Summary | Continuity of Care Document ---
Author Name Unknown Organization [facility] [address] [place] [facility] [address] [id number] Care Team Providers Care Note Specialist Name Role Phone Radha Chaudhry Primary Care Physician [phone] Encounter [facility] [id number] Date(s): 09/13/23 - 09/13/23 [facility] [address] [place] [facility] 2 [facility] [place] [address] [phone] Encounter Diagnosis Changing skin lesion(Discharge Diagnosis) - 09/13/23 Melanoma(Discharge Diagnosis) - 09/13/23 Multiple nevi(Discharge Diagnosis) - 09/13/23 Seborrheic keratoses(Discharge Diagnosis) - 09/13/23 Discharge Disposition: Home or Self Care Attending Physician: MD Jones Sara B Allergies, Adverse Reactions, Alerts No Known Allergies Assessment and Plan Extracted from: Title:Dermatology Office Visit Note Author:Nikolai witt MD, Sara B Date:09/13/23 1.Changing skin lesion x3. The area was identified and time out was completed. Verbal informed consent was obtained with the patient aware of the possibility of bleeding, scarring and infection and they did elect to proceed. The site was cleansed with alcohol and anesthetized with 1% lidocaine with epinephrine. Time out was performed and scanned into the patient's chart. Tangential shave biopsy was performed, hemostasis was achieved with cautery and the area was dressed with Vaseline and a bandage. Patient was given verbal and written instructions regarding wound care. My office will be in touch with results. Call with any problems.Photograph(s) was/were taken to document location and verbal informed consent was obtained to use the [employer] Camera Capture samy. 2.Melanoma Patient aware of the risk that this could come back and the risk of secondary melanomas which is higher than the general population on the risk of first- degree family members. She will continue every 6 months. Call with concerns in the interim. Continue sun protection. 3.Multiple nevi Chronic, within normal limits today 4.Seborrheic keratoses Chronic, within normal limits today Medications calcium-vitamin D extended release Start: 06/23/21 [...] PO, Daily Start Date: 01/15/21 Status: Ordered Restasis 0.05% ophthalmic emulsion Start: 09/13/23 2:27:00 PM EDT Start Date: 09/13/23 Status: Ordered Synthroid Start: 11/19/20 1:13:00 PM EDT, 75 mcg =, PO, Daily Start Date: 11/19/20 Status: Ordered Vitamin B Complex Start: 06/23/21 10:10:00 AM EDT, 1 tab, PO, Daily Start Date: 06/23/21 Status: Ordered Mental Status 09/13/23 Barriers to Learning one year None evide nt Mandatory Health Literacy Documentation Yes Health Literacy Communication Barriers N ever Primary Language Bolivian Problem List Condition Confirmation Course Effective Dates Status Health St atus Informant Multiple nevi Confirmed Active Changing skin lesion Confirmed Active Graves disease Confirmed Active History of breast cancer in female Confirmed Active Melanoma Confirmed Active Seborrheic keratoses Confirmed Active Diagnosis Diagnosis Type Effective Dates Health Status Clinical Service Informant Multiple nevi Discharge Diagnosis 09/13/23 Changing skin lesion Discharge Diagnosis 09/13/23 Melanoma Discharge Diagnosis 09/13/23 Seborrheic keratoses Discharge Diagnosis 09/13/23 Procedures Procedure Date Related Diagnosis Body Site Status Shave biopsy and cauterizati on of skin 1 09/13/23 Completed Excision 02/17/23 Completed Shave biopsy of skin 01/06/23 Comp leted Melanoma 12/03/20 Completed Shave biopsy of skin 10/15/20 Comp leted 11. left arm above melanoma scalp 2. left back 3. right post lower leg Social History Social History Type Response Smoking Status Never smoked cigaret kaylynn Sex Female Implantable Device List Procedure Provider Procedure Date Device Type Site Unknown Unknown 12/03/20 Unknown Unknown Device Identifier Serial Number Lot or Batch Number Manufacturing Date Expiration Date Distinct Identification Code MRI Safety Implantable Status Assigning Authority Unknown Unknown n/a Unknown 11/03/24 Unknown Unknown Active Unkn own Dermatology Outpatient Note * MD Robert, Beckie Pineda: PERFORM Event Display: Dermatology Outpt Note Authored Date: [id number] Chief Complaint skin check- spot on back of left hand History of Present Illness The patient is a pleasant 72-year-old female who usually sees Dr. Cooper. I am meeting her today. She has a history of malignant melanoma on the left extensor forearm in 2020.It was at least 1 mm deep Mariano's level 4 with 1 mitoses per millimeter squared. It was reexcised in [place]. She did have a sentinel lymph node biopsy done which was negative for metastatic melanoma Also hada severely atypical nevus on the left anterior thigh late [address] Barrios ROS:Patient has lost 10 pounds over the last year due to recent Parkinson's diagnosis. Has tremorsome balance issues. Denies headaches fever sweats chest pain coughing shortness of breath abdominal pain nausea vomiting or diarrhea. Family history: Positive for skin cancer but negative for melanoma. The patient herself has had breast canceris unsure if she is BRCA positive it was many years ago. Physical Exam Gen: Well appearing patient, no acute distress. Alert and oriented x3. Good mood. Skin examination completed of face, eyelids, scalp, hair, lips, ears, neck, chest, back, abdomen,upper and lower extremities bilaterally including hands, feet, fingers and toes, fingernails and toenails, pt declined buttocks and groin. Pt declined a foreign service officer.Patient has a linear brown patchat the outside of the melanoma scar on the left forearm. She has not sure how long it has been there or if it is new. There is no nodularity or pigment directly in the scar. She has an atypicalnevus about 8 mm on the left lower back. Also a scaly patch on the right posterior inner lower leg which she says has been treated with Dr. Cooper with freezing several times. She has an irritated seborrheic keratosis on the left dorsal hand. She has numerous less than 6mm in diameter well circumscribed round brown macular nevi within normal limits under dermoscopy. Scattered seborrheic keratoses. No neck, supraclavicular, posterior occipital, axillaryepitrochlear or inguinal lymphadenopathy. No hepatosplenomegaly. Images 2023-09-13 14:48:14 2023-09-13 14:48:21 2023-09-13 14:48:35 2023-09-13 14:48:42 2023-09-13 [id number] 14:49:28 Assessment/Plan 1.Changing skin lesion x3. The area was identified and time out was completed. Verbal informed consent was obtained with thepatient aware of the possibility of bleeding, scarring and infection and they did elect to proceed.The site was cleansed with alcohol and anesthetized with 1% lidocaine with epinephrine. Time out was performed and scanned into the patient's chart. Tangential shave biopsy was performed, hemostasis was achieved with cautery and the area was dressed with Vaseline and a bandage. Patient was given verbal and written instructions regarding wound care. My office will be in touch with results. Call with any problems.Photograph(s) was/were taken to document location and verbal informed consent was obtained to use the [employer] Camera Capture samy. 2.Melanoma Patient aware of the risk that this could come back and the risk of secondary melanomas which is higher than the general population on the risk of first- degree family members. She will continue every 6 months. Call with concerns in the interim. Continue sun protection. 3.Multiple nevi Chronic, within normal limits today 4.Seborrheic keratoses Chronic, within normal limits today Problem List/Past Medical History Ongoing Changing skin lesion Graves disease History of breast cancer in female Melanoma Multiple nevi Seborrheic keratoses Procedure/Surgical History Excision| Service Date: 02/17/2023Shave biopsy of skin| Service Date: 01/06/2023Melanoma| Service Date: 12/03/2020have biopsy of skin| Service Date: 10/15/2020 Medications calcium-vitamin D(calcium-vitamin D extended release), 1 tab, PO, Daily carbidopa-levodopa(carbidopa-levodopa 25 mg-100 mg oral tablet) cycloSPORINE ophthalmic(Restasis 0.05% ophthalmic emulsion) ezetimibe(ezetimibe 10 mg oral tablet), 10 mg= 1 tab, PO, Daily lactobacillus acidophilus and bulgaricus(Floranex oral granule) levothyroxine(Synthroid), 75 mcg, PO, Daily losartan, 100 mg, PO, Daily multivitamin(Vitamin B Complex), 1 tab, PO, Daily Allergies NKA Social History Smoking Status Never smoked cigarettes Electronic Signature on File Electronically Reviewed/Signed by: Beckie Jones MD Author Signature Dt/Tm:09/13/2023 02:55 PM Department of Dermatology [facility] Patient Care team information Care Team Personnel Name: MD Isidoro, Radha Pond Position: Referring DIRECT Member Role: Primary Care Provider Address: Address: [address] [place] [address] Name: Rupinder Larry Position: HIS Supervisor_P Member Role: HIS Lifetime Care Team Related Persons Name: JUWAN LOU Address: home [address] [place] [address]"
--- OUTSIDE RECORDS SUMMARY | 2024-01-09 23:56 | External Medical Summary | Summary of Care ---
Author Name Unknown Organization [facility] Address [address] [place] [address] Phone [phone] Care Team Providers Care Entry Level Civil Engineer Name Role Phone Radha Chaudhry MD Primary Care Provider + Reason for Visit * Reason Onset Date Comments Test Results 07/11/2023 Encounter Details Date Type Department Care Team (Late st Contact Info) Description 07/11/2023 Telephone General Internal Medicine [facility] [place] [address] [place] [address] Radha Chaudhry MD [address] [facility] [place] [address] Test Results Allergies Active Allergy Reactions Criticality Noted Date Comments Iodine Hives Low 02/08/2023 Per Pt in [address] Scan and had a hive break out on her chest Simvastatin High 12/05/2008 Muscle pain documented as of this encounter (statuses as of 07/14/2023) Medications Medication Sig Dispensed Refills Start Date [...] as of this encounter (statuses as of 07/14/2023) Active Problems Problem Noted Date Diagnosed Date [...] as of this encounter (statuses as of 07/14/2023) Resolved Problems Problem Noted Date Diagnosed Date [...] as of this encounter (statuses as of 07/14/2023) Immunizations Name Administration Dates Next Due COVID-19 [...] of Test : 07-04-2023 Location of Test: [facility] Ordering Provider: PCP Patient has been made [...] 08/23/2023 9:20 AM EDT Office Visit Neurology [facility] [address] [place] [address] Kyle Ragland MD [address] [place] [address] 10/04/2023 1:00 PM EDT Office Visit General Internal Medicine [facility] [address] [place] [address] Radha Chaudhry MD [address] [place] [address] Health Maintenance Due Date Last Done Comments Hepatitis C Screening 1968 DTaP,Tdap,and Td Vaccines (1 - Tdap) 1969 Colonoscopy 10/08/1995 Fecal Occult Blood Test 10/08/1995 Sigmoidoscopy 10/08/1995 Depression Screening 09/18/2021 09/18/2020 GFR 08/01/2023 01/31/2023, 11/06, 09/28/2022, Additional history exists Albumin/Creatinine Ratio 08/18/2023 023, 09/24/2021, 09/19/2020, Additional history exists CKD PHOS USE SMARTSET 28291 09/29/202309/05, 09/24/2021, 09/18/2020 CKD HGB USE SMARTSET 30503 12/03/202312/02, 12/02/2022, 08/06/2022, Additional history exists TSH [...] filedocumented as of this encounter Care Teams Entry Level Civil Engineer Relationship Specialty Start Date End Date Radha Chaudhry MD [address] [place] [address] PCP - General Internal Medicine 04/16/14 documented as of this encounter
--- OUTSIDE RECORDS SUMMARY | 2024-01-09 23:56 | External Medical Summary | Summary of Care ---
Author Name Unknown Organization [facility] Address [address] [place] [address] Phone [phone] Care Team Providers Care Preanalytics Team Lead Name Role Phone Radha Chaudhry MD Primary Care Provider + Reason for Visit * Reason Onset Date Comments Test Results 07/11/2023 Advice 07/15/2023 Encounter Details Date Type Department Care Team (Late st Contact Info) Description 07/11/2023 Telephone General Internal Medicine [facility] [address] [facility] [place] [address] Radha Chaudhry MD [address] [place] [address] Test Results; Advice Allergies Active Allergy Reactions [...] encounter Miscellaneous Notes * Telephone Encounter - Mile Mcgee OSA - 07/15/2023 11:19 AM EDT Reason for patient's call: Katy (prefers to be called Katy not Abigail) She is demanding to speak to a Nurse in reference to her MRI results-She is upset that she hasn't received a call. I called patient back- connection was bad. Caller was transferred to [facility] at the nurse line. * Telephone Encounter - Radha Chaudhry MD - 07/14/2023 4:58 PM EDT See another encounter. * Telephone Encounter - Gina Sainz OSA - 07/11/2023 11:59 AM EDT Who is Requesting Test Results: PATIENT Primary Care Provider : Radha Chaudhry MD Tests Results Requested : MRI RESULTS Date of Test : 07-04-2023 Location of Test: [facility] Ordering Provider: PCP Patient has been [...] 08/23/2023 9:20 AM EDT Office Visit Neurology [facility] [address] [place] [address] Kyle Ragland MD [address] [place] [facility] [place] [address] 10/04/2023 1:00 PM EDT Office Visit General Internal Medicine [facility] [address] [place] [address] Radha Chaudhry MD [address] [facility] [place] [address] Health Maintenance Due Date Last Done Comments Hepatitis C Screening 1968 DTaP,Tdap,and Td Vaccines (1 - Tdap) 1969 Colonoscopy 10/08/1995 Fecal Occult Blood Test 10/08/1995 Sigmoidoscopy 10/08/1995 Depression Screening 09/18/2021 09/18/2020 GFR 08/01/2023 01/31/2023, 11/06, 09/28/2022, Additional history exists Albumin/Creatinine Ratio 08/18/2023 023, 09/24/2021, 09/19/2020, Additional history exists CKD PHOS USE SMARTSET 14105 09/29/202309/05, 09/24/2021, 09/18/2020 CKD HGB USE SMARTSET 65062 12/03/202312/02, 12/02/2022, 08/06/2022, Additional history exists TSH [...] filedocumented as of this encounter Care Teams Preanalytics Team Lead Relationship Specialty Start Date End Date Radha Chaudhry MD [address] [place] [address] PCP - General Internal Medicine 04/16/14 documented as of this encounter
--- NOTE | 2024-01-10 05:50 | Surgery Progress Note ---
Date of Service January 10, 2024 Assessment & Plan (1) Elevated lactic acid level: (2) Abdominal pain: Plan 73-year-old woman who presented for abdominal pain and elevated lactic acid. Her abdominal pain has resolved. She is asking for food. She has no fevers or chills. Lactic acid continues to decrease, last level 2.2. Clear etiology. Recommend slow advance of diet as tolerated. Will continue to follow. Admission and Anticipated Discharge Date Admission Date: January 09, 2024 Subjective feeling better this morning. Denies any pain or tenderness. No nausea or vomiting. No fevers or chills. She had a normal bowel movement. Physical Exam Physical Exam: AFVSS NCAT NAD, A&O x 3 Abdomen: Soft, nontender/nondistended Results & Data Vital Signs (Past 12 Hours) Vital Signs Temp Pulse Pulse Resp BP BP Pulse Ox 01/10/24 03:57 37 C 77 18 114/65 97 01/10/24 00:07 01/09/24 22:25 80 01/09/24 22:04 36.7 C 104 H 18 155/78 H 98 01/09/24 21:33 74 125/74 96 01/09/24 20:00 76 17 118/72 97 01/09/24 18:24 83 01/09/24 18:00 93 H 80 H 131/79 97 O2 Del Method 01/10/24 03:57 Room Air 01/10/24 00:07 Room Air 01/09/24 22:25 01/09/24 22:04 Room Air 01/09/24 21:33 Room Air 01/09/24 20:00 Room Air 01/09/24 18:24 01/09/24 18:00 Room Air Laboratory Results 01/09/24 01/09/24 01/09/24 Range/Units Unknown 22:49 16:24 WBC (4.8-10.8) K/ul RBC (4.20-5.40) M/uL Hgb (12.0-16.0) g/dl Hct (37.0-47.0) % MCV (80.0-100.0) fL MCH (25.0-34.0) pg MCHC (32.0-36.0) g/dL RDW Std Deviation (36.4-46.3) fL RDW Coeff of Lacie (11.5-14.5) % Plt Count (130-400) K/uL MPV (9.4-12.4) fL Immature Gran % (Auto) % Neut % (Auto) % Lymph % (Auto) % Garden % (Auto) % Eos % (Auto) % Baso % (Auto) % Neut # (Auto) (1.40-6.50) K/uL Lymph # (Auto) (1.20-3.40) K/uL Garden # (Auto) (0.11-0.59) K/uL Eos # (Auto) (0.00-0.50) K/uL Baso # (Auto) (0.00-0.20) K/uL Immature Gran # (Auto) (0.01-0.20) K/uL Sodium (136-145) mmol/L Potassium (3.5-5.1) mmol/L Chloride (98-107) mmol/L Carbon Dioxide (21-32) mmol/L Anion Gap (3-11) BUN (6-23) mg/dl Creatinine (0.6-1.2) mg/dl Est Cr Clr Drug Dosing eGFR BUN/Creatinine Ratio (10-20) Glucose (70-99(Fasting)) mg/dl Lactate 2.2 H* 3.2 H* (0.4-2.0) mmol/L Calcium (8.6-10.3) mg/dl Total Bilirubin (0.2-1.0) mg/dl AST (13-39) U/L ALT (7-52) U/L Alkaline Phosphatase (34-104) U/L Total Protein (6.0-8.3) gm/dl Albumin (3.4-5.0) gm/dl Globulin (2.5-4.0) gm/dl Albumin/Globulin Ratio (0.9-2) Lipase (11-82) U/L Urine Color Yellow Urine Appearance Clear (Clear) Urine pH 5.0 (4.5-7.5) Ur Specific [place] > 1.045 H (1.000-1.030) Urine Protein Trace H (Negative) Urine Glucose (UA) Negative (Negative) Urine Ketones Negative (Negative) Urine Blood Negative (Negative) Urine Nitrite Positive A (Negative) Urine Bilirubin Negative (Negative) Urine Urobilinogen Negative (Negative) Ur Leukocyte Esterase 1+ H (Negative) Urine WBC (Auto) 21-50 H (0-5) /hpf Urine RBC (Auto) 0-2 (0-2) /hpf U Hyaline Cast (Auto) 0-2 (0-2) /lpf U Epithel Cells (Auto) 0-2 (0-2) /hpf Urine Bacteria (Auto) 3+ H (None Seen) 01/09/24 01/09/24 Range/Units 14:31 14:10 WBC 5.90 (4.8-10.8) K/ul RBC 4.06 L (4.20-5.40) M/uL Hgb 12.6 (12.0-16.0) g/dl Hct 38.6 (37.0-47.0) % MCV 95.1 (80.0-100.0) fL MCH 31.0 (25.0-34.0) pg MCHC 32.6 (32.0-36.0) g/dL RDW Std Deviation 50.6 H (36.4-46.3) fL RDW Coeff of Lacie 14.4 (11.5-14.5) % Plt Count 199 (130-400) K/uL MPV 9.7 (9.4-12.4) fL Immature Gran % (Auto) 0.2 % Neut % (Auto) 79.6 % Lymph % (Auto) 17.5 % Garden % (Auto) 2.2 % Eos % (Auto) 0.2 % Baso % (Auto) 0.3 % Neut # (Auto) 4.70 (1.40-6.50) K/uL Lymph # (Auto) 1.03 L (1.20-3.40) K/uL Garden # (Auto) 0.13 (0.11-0.59) K/uL Eos # (Auto) 0.01 (0.00-0.50) K/uL Baso # (Auto) 0.02 (0.00-0.20) K/uL Immature Gran # (Auto) 0.01 (0.01-0.20) K/uL Sodium 135 L (136-145) mmol/L Potassium 4.0 (3.5-5.1) mmol/L Chloride 102 (98-107) mmol/L Carbon Dioxide 24 (21-32) mmol/L Anion Gap 9 (3-11) BUN 26 H (6-23) mg/dl Creatinine 1.15 (0.6-1.2) mg/dl Est Cr Clr Drug Dosing Not Reportable eGFR 50.30 BUN/Creatinine Ratio 22.6 H (10-20) Glucose 155 H (70-99(Fasting)) mg/dl Lactate 4.9 H* (0.4-2.0) mmol/L Calcium 9.8 (8.6-10.3) mg/dl Total Bilirubin 1.5 H (0.2-1.0) mg/dl AST 139 H (13-39) U/L ALT 32 (7-52) U/L Alkaline Phosphatase 98 (34-104) U/L Total Protein 9.1 H (6.0-8.3) gm/dl Albumin 4.1 (3.4-5.0) gm/dl Globulin 5.0 H (2.5-4.0) gm/dl Albumin/Globulin Ratio 0.8 L (0.9-2) Lipase 37 (11-82) U/L Urine Color Urine Appearance (Clear) Urine pH (4.5-7.5) Ur Specific [place] (1.000-1.030) Urine Protein (Negative) Urine Glucose (UA) (Negative) Urine Ketones (Negative) Urine Blood (Negative) Urine Nitrite (Negative) Urine Bilirubin (Negative) Urine Urobilinogen (Negative) Ur Leukocyte Esterase (Negative) Urine WBC (Auto) (0-5) /hpf Urine RBC (Auto) (0-2) /hpf U Hyaline Cast (Auto) (0-2) /lpf U Epithel Cells (Auto) (0-2) /hpf Urine Bacteria (Auto) (None Seen) (2) Abdominal pain Abdominal location: generalized Qualified Code(s): R10.84 - Generalized abdominal pain
[2024-01-10] MEDS ORDERED: LEVOTHYROXINE SODIUM 75 MCG TABLET PO SCH (06:30)
[2024-01-10 06:39] LABS: Basophils # (auto) 0.01 K/uL (0.00-0.20); Basophils % (auto) 0.1 %; Hematocrit (blood only) 31.3 % (37.0-47.0); Hemoglobin 10.4 g/dl (12.0-16.0); Immature Granulocytes # (auto) 0.07 K/uL (0.01-0.20); Immature Granulocytes % (auto) 0.5 %; Lymphocytes # (auto) 0.98 K/uL (1.20-3.40); Lymphocytes % (auto) 7.5 %; Mean Corpuscular Hemoglobin 30.5 pg (25.0-34.0); Mean Corpuscular Hgb Conc 33.2 g/dL (32.0-36.0); Mean Corpuscular Volume 91.8 fL (80.0-100.0); Monocytes # (auto) 0.55 K/uL (0.11-0.59); Monocytes % (auto) 4.2 %; Neutrophils # (auto) 11.43 K/uL (1.40-6.50); Neutrophils % (auto) 87.7 %; Platelet Count 136 K/uL (130-400); RDW Coefficient of Variation 14.6 % (11.5-14.5); RDW Standard Deviation 49.2 fL (36.4-46.3); Red Blood Count 3.41 M/uL (4.20-5.40); White Blood Count 13.04 K/ul (4.8-10.8)
[2024-01-10 07:05] LABS: BUN Creatinine Ratio 20.6 (10-20); Calcium 8.9 mg/dl (8.6-10.3); Creatinine Clr Calc Pharmacy 39.2 ml/min; Potassium 4.2 mmol/L (3.5-5.1)
[2024-01-10] MEDS: LOSARTAN POTASSIUM 50 MG TAB PO SCH (09:21)
[2024-01-10] MEDS: cefTRIAXone SODIUM 2,000 MG/50 ML BAG IV SCH (10:27)
--- NOTE | 2024-01-10 12:09 | Hospitalist Progress Note ---
Date of Service January 10, 2024 Assessment & Plan (1) Abdominal pain: (2) Elevated lactic acid level: (3) Adnexal cyst: Plan: 73-year-old female with PMH of Parkinson disease, HTN, hypothyroidism presented with complaint of lower abdominal discomfort/pain while dining in a coffee shop, progressively worsening, radiating to bilateral lower back. She denied any nausea or vomiting or diarrhea or fever. She denied any chest pain or shortness of breath. She is being managed for the following: Abdominal pain, possible mesenteric ischemia Admitting CTAP demonstrated what appears to be a gastroenteritis with mild thickening of the distal stomach and small bowel. Lactic acid 4.9 on admission, s/p IVF, improved to 1.0 Gen Sx on board, slowly adv diet. pt started on clears, no increase in belly pain w/ diet. pt reports overall improving belly pain. 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 Left adnexal cystic lesion: 4.[address] abdomen pelvis, favors an ovarian cyst, Pelvic ultrasound pending, pt declines transvaginal USG. Site Acquisition Manager consult inpt vs OP pending pelvic us read. Pt made aware to f/u w/ gynecology as OP. Lightheadedness, holosystolic murmur: Echocardiogram ordered. Await results. Monitor in telemetry unit Right lower lobe pulmonary nodule: 5 mm, subsolid seen on CT abdomen pelvis. Follow-up chest CT in 6 months recommended - pt and her has been made aware of this. Other chronic conditions: Continue with/resume home meds as and when able. Hypertension-continue losartan Hypothyroidism- Continue levothyroxine Melanoma s/p recent resection Breast cancer-many years ago DVT prophylaxis: SCDs for now Full code per patient Disposition: DC w/ gen sx clearance, likely in next 1-2 days. Also await Urine c/s. , Admission and Anticipated Discharge Date Admission Date: January 09, 2024 Subjective Patient was seen and examined at bedside. Patient was lying in bed, on room air, upset, NAD. Patient's at bedside who was also updated on plan of care. Answered all his questions. Patient upset because she does not want to do transvaginal ultrasound and also she wants to get out of the hospital so that she can cast her vote. Patient's concern for transvaginal ultrasound was that she is Sjogren's syndrome patient and she is dry and would not want any ultrasound probe because of mucosal dryness, patient explained that gel is used with ultrasound probe and if she changes mind to let us know. For her voting concerns, communicated with RN who is going to help patient cast her vote. Patient reports improvement in her belly pain, reports no increase in belly pain after clear liquid diet today, has been explained that we will keep her on clear liquid diet today and possibly advance to full liquid tomorrow and see how she does clinically. Patient voiced understanding. 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 Patient still remains upset and dissatisfied but is agreeable to plan of care. Physical Exam Physical Exam: General- oriented x 3, not in distress, speaks in sentences with no effort or accessory muscle use Head- atraumatic Eyes- PERRL, EOMI, anicteric ENT- oropharynx clear Neck- supple, no JVD, no adenopathy, no thyromegaly; carotids +2/2, no bruits appreciated Lungs- clear to auscultation bilaterally, no rales/wheezes Heart- normal rate, regular rhythm; Positive grade 2 holosystolic murmur, no gallop, no rub appreciated Abdomen- normal bowel sounds, nondistended, soft, non tender, no masses or hepatosplenomegaly Extremities- no pretibial edema, no calf tenderness; peripheral pulses intact Neuro- alert, oriented x 3; CN 2-12 grossly intact; motor 5/5 bilaterally; sensation 100% on all extremities; no other gross focal neurologic deficits Skin- warm & dry Results & Data Results & Data Vital Signs (Past 12 Hours) Vital Signs Temp Pulse Pulse Pulse Resp BP BP 01/10/24 10:33 36.7 C 81 16 135/78 01/10/24 07:39 36.7 C 83 16 121/71 01/10/24 07:12 73 01/10/24 03:57 37 C 77 18 114/65 01/10/24 00:07 Pulse Ox O2 Del Method 01/10/24 10:33 98 Room Air 01/10/24 07:39 97 Room Air 01/10/24 07:12 01/10/24 03:57 97 Room Air 01/10/24 00:07 Room Air (1) Abdominal pain Abdominal location: generalized Qualified Code(s): R10.84 - Generalized abdominal pain
--- NOTE | 2024-01-10 12:37 | Ultrasound Report ---
PELVIC ULTRASOUND CLINICAL HISTORY: abdominal pain, left adnexal cyst COMPARISON STUDY: CT of the abdomen and pelvis January 09, 2024. TECHNIQUE: Transabdominal sonography of the pelvis was performed. The patient deferred transvaginal imaging. FINDINGS: The uterus measures approximately 6.3 x 3.8 x 2.6 cm. The calcified fibroids on CT of 2023 not well visualized on this exam. The ovaries are partially obscured. A 4.5 x 4.3 x 3.7 c m anechoic left adnexal lesion corresponds to the finding on CT of January 09, 2024. No solid compone nt is present. There is no color flow within this lesion. No additional adnexal abnormalities were id entified. IMPRESSION: 1. 4.5 cm anechoic left adnexal lesion suggestive of an ovarian cyst which corresponds to the finding on CT of January 09, 2024. Although abnormal in a postmenopausal patient, this lesion has benign luis manuel ging characteristics. A follow-up pelvic ultrasound in 6 months to ensure stability is recommended. 2. Calcified fibroids on CT of January 09, 2024 not well visualized on transabdominal exam. ACT 112: Negative or not required by law. Electronically signed by: Brandon Layne M.D. 01/10/2024 12:35 PM
[2024-01-10] MEDS ORDERED: methylPREDNISolone 125 MG/2 ML VIAL IV STA (16:52)
[2024-01-10] MEDS: diphenhydrAMINE 50 MG/ML VIAL IV STA (17:05)
[2024-01-10] MEDS: methylPREDNISolone 40 MG in SYRINGE 0 ML IV STA (17:06)
[2024-01-11 04:02] VITALS: TEMP 98.4
[2024-01-11] MEDS: LEVOTHYROXINE SODIUM 75 MCG TABLET PO SCH (05:47)
[2024-01-11] MEDS: ADVANCED PROBIOTIC 625 MG CAPSULE PO SCH (07:54)
[2024-01-11 07:55] LABS: Hematocrit (blood only) 32.3 % (37.0-47.0); Hemoglobin 10.5 g/dl (12.0-16.0); Mean Corpuscular Hemoglobin 30.6 pg (25.0-34.0); Mean Corpuscular Hgb Conc 32.5 g/dL (32.0-36.0); Mean Corpuscular Volume 94.2 fL (80.0-100.0); Mean Platelet Volume 10.2 fL (9.4-12.4); Platelet Count 146 K/uL (130-400); RDW Coefficient of Variation 14.7 % (11.5-14.5); RDW Standard Deviation 50.7 fL (36.4-46.3); Red Blood Count 3.43 M/uL (4.20-5.40); White Blood Count 10.09 K/ul (4.8-10.8)
[2024-01-11 08:07] VITALS: PULSE 68; RESP 18; O2SAT 98
[2024-01-11 08:13] LABS: Albumin Globulin Ratio 0.8 (0.9-2); Albumin Level 3.2 gm/dl (3.4-5.0); BUN Creatinine Ratio 20.2 (10-20); Bilirubin,Total 1.3 mg/dl (0.2-1.0); Calcium 8.9 mg/dl (8.6-10.3); Chol HDL Ratio 3.3 (0-5); Creatinine Clr Calc Pharmacy 40.7 ml/min; Globulin 4.1 gm/dl (2.5-4.0); Magnesium 1.6 mg/dl (1.7-2.4); Phosphorus 2.4 mg/dl (2.5-4.9); Potassium 3.8 mmol/L (3.5-5.1); Total Protein 7.3 gm/dl (6.0-8.3)
--- NOTE | 2024-01-11 11:17 | Surgery Progress Note ---
Date of Service January 11, 2024 Assessment & Plan (1) Elevated lactic acid level: (2) Abdominal pain: Plan 73-year-old woman who presented for abdominal pain and elevated lactic acid. Her abdominal pain has resolved. She is asking for food. She has no fevers or chills. Lactic acid normalized. Tolerated advanced diet without recurrence of abdominal pain or nausea or vomiting. Okay from surgical standpoint to advance to regular diet and discharge home today per hospitalist service. Dr. Pope has seen and examined patient, agrees with above. Admission and Anticipated Discharge Date Admission Date: January 09, 2024 Subjective feeling better tolerating advanced diet (full liquids today) no abdominal pain, n,v ready to go home Physical Exam Constitutional: WD/WN, vitals as above cooperative and comfortable; no acute distress and not ill appearing Gastrointestinal (Abdomen): Inspection/Auscultation: abdomen normal to inspection; abdomen not distended Percussion/Palpation: abdomen soft; abdomen nontender, no guarding, abdomen not rigid and abdomen not firm Skin: no rashes, warm and dry Psychiatric: A+Ox3, euthymic affect Results & Data Vital Signs (Past 12 Hours) Vital Signs Temp Pulse Pulse Resp BP Pulse Ox O2 Del Method 01/11/24 08:06 36.9 C 68 18 147/72 H 98 Room Air 01/11/24 07:14 76 01/11/24 04:01 36.9 C 76 20 125/66 96 Room Air 01/11/24 00:15 36.6 C 72 20 124/69 99 Room Air Laboratory Results 01/11/24 Range/Units 07:25 WBC 10.09 (4.8-10.8) K/ul RBC 3.43 L (4.20-5.40) M/uL Hgb 10.5 L (12.0-16.0) g/dl Hct 32.3 L (37.0-47.0) % MCV 94.2 (80.0-100.0) fL MCH 30.6 (25.0-34.0) pg MCHC 32.5 (32.0-36.0) g/dL RDW Std Deviation 50.7 H (36.4-46.3) fL RDW Coeff of Lacie 14.7 H (11.5-14.5) % Plt Count 146 (130-400) K/uL MPV 10.2 (9.4-12.4) fL Sodium 136 (136-145) mmol/L Potassium 3.8 (3.5-5.1) mmol/L Chloride 104 (98-107) mmol/L Carbon Dioxide 26 (21-32) mmol/L Anion Gap 6 (3-11) BUN 20 (6-23) mg/dl Creatinine 0.99 (0.6-1.2) mg/dl Est Cr Clr Drug Dosing 40.7 ml/min eGFR 60.21 BUN/Creatinine Ratio 20.2 H (10-20) Glucose 79 (70-99(Fasting)) mg/dl Calcium 8.9 (8.6-10.3) mg/dl Phosphorus 2.4 L (2.5-4.9) mg/dl Magnesium 1.6 L (1.7-2.4) mg/dl Total Bilirubin 1.3 H (0.2-1.0) mg/dl AST 47 H (13-39) U/L ALT 33 (7-52) U/L Alkaline Phosphatase 65 (34-104) U/L Total Protein 7.3 (6.0-8.3) gm/dl Albumin 3.2 L (3.4-5.0) gm/dl Globulin 4.1 H (2.5-4.0) gm/dl Albumin/Globulin Ratio 0.8 L (0.9-2) Triglycerides 63 (0-150) mg/dl Cholesterol 130 (0-200) mg/dl LDL Cholesterol, Calc 77 mg/dl VLDL Cholesterol, Calc 13 (0-30) mg/dl HDL Cholesterol 40 mg/dl Cholesterol/HDL Ratio 3.3 (0-5) (2) Abdominal pain Abdominal location: generalized Qualified Code(s): R10.84 - Generalized abdominal pain
[2024-01-11 12:37] VITALS: BP 121/71
--- NOTE | 2024-01-11 13:31 | Discharge Summary ---
Date of Service January 11, 2024 Admission HPI Per Admitting Provider 73-year-old female with Parkinson disease, hypertension, hypothyroidism, And other problems noted below presenting with abdominal pain which started earlier today. Patient was feeling well until around 11 AM, while dining in a coffee shop, patient started to feel lightheaded followed by lower abdominal discomfort. She was able to drive home, but the abdominal pain progressively worsened, became severe and radiated to bilateral lower back. No nausea, vomiting, diarrhea, fevers or chills. No chest pain, shortness of breath, dizziness At the ER, patient received with relatively stable vital signs, afebrile. CT abdomen and pelvis with IV contrast showin. No bowel obstruction. Normal appendix. 2. Wall thickening of several small bowel loops with adjacent mesenteric edema. Mild gastric wall thickening and mucosal enhancement. The findings may reflect a gastroenteritis. 3. Colonic diverticulosis. No evidence for acute diverticulitis. Right colon wall thickening, likely related to underdistention. 4. Small amount of fluid within the pelvis. Periportal edema. 5. 4.5 cm water attenuation left adnexal cystic lesion. This favors an ovarian cyst. Nonemergent pelvic ultrasound is recommended to evaluate for complexity. 6. 5 mm subsolid right lower lobe pulmonary nodule. Follow-up chest CT in 6 months to ensure stability is recommended. Lactic acid elevated at 4.9. ER physician discussed with general surgeon, who recommended additional IV fluids and monitoring of lactic acid for possible mesenteric ischemia. On my exam, patient seen resting in bed, sitting up, comfortable, not in distress States abdominal pain is significantly better, mostly resolved. No any other symptoms Admission Exam Per Admitting Provider General- oriented x 3, not in distress, speaks in sentences with no effort or accessory muscle use Head- atraumatic Eyes- PERRL, EOMI, anicteric ENT- oropharynx clear Neck- supple, no JVD, no adenopathy, no thyromegaly; carotids +2/2, no bruits appreciated Lungs- clear to auscultation bilaterally, no rales/wheezes Heart- normal rate, regular rhythm; Positive grade 2 holosystolic murmur, no gallop, no rub appreciated Abdomen- normal bowel sounds, nondistended, soft, Mild tenderness left lower quadrant, no masses or hepatosplenomegaly Extremities- no pretibial edema, no calf tenderness; peripheral pulses intact Neuro- alert, oriented x 3; CN 2-12 grossly intact; motor 5/5 bilaterally;sensation 100% on all extremities; no other gross focal neurologic deficits Skin- warm & dry Principal Diagnosis Abdominal pain, likely acute gastroenteritis Discharge Exam General- oriented x 3, not in distress, speaks in sentences with no effort or accessory muscle use Neck- supple, no JVD, no adenopathy, no thyromegaly; carotids +2/2, no bruits appreciated Lungs- clear to auscultation bilaterally, no rales/wheezes Heart- normal rate, regular rhythm; no murmur no gallop, no rub appreciated Abdomen- normal bowel sounds, nondistended, soft, non tender, no masses Extremities- no pretibial edema, no calf tenderness; peripheral pulses intact Neuro- alert, oriented x 3; CN 2-12 grossly intact; motor 5/5 bilaterally; sensation 100% on all extremities; no other gross focal neurologic deficits Skin- warm & dry Discharge Data Allergies Allergy/AdvReac Type Severity Reaction Status Date / Time [id number] Reductase Allergy Unknown legs achy Verified 12/16/22 18:46 Inhibitor Iodinated Contrast Media AdvReac Mild Rash Verified 01/09/24 14:39 1st Covid shot Allergy arm got Uncoded 12/16/22 18:50 hives/itchy for 10 days Steroid shot Allergy Flushed & Uncoded 12/16/22 18:50 hot flushes Consultations 01/09/24 17:41 Consult General Surgery Routine 01/09/24 18:04 ED Decision to Admit Stat 01/09/24 22:04 Consult General Surgery Routine Ordered Studies 01/09/24 14:25 CT Abd and Pelvis [CT abd pelvis IV con only] Stat 01/10/24 US pelvic complete Routine Hospital Course (1) Abdominal pain: (2) Elevated lactic acid level: (3) Adnexal cyst: 73-year-old female with PMH of Parkinson disease, HTN, hypothyroidism presented with complaint of lower abdominal discomfort/pain while dining in a coffee shop, progressively worsening, radiating to bilateral lower back. She is being managed for the following: Abdominal pain, possible Acute Gastroenteritis Admitting CTAP demonstrated what appears to be a gastroenteritis with mild thickening of the distal stomach and small bowel. Lactic acid 4.9 on admission, s/p IVF, improved to 1.0 Patient was evaluated by general surgery; she was provided supportive treatment with IV fluids, bowel rest. Her diet was gradually advanced to normal regular diet which she was able to tolerate. She was discharged home with instructions to follow-up with PCP. 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 Will need follow-up ultrasound in 6 months to ensure stability Right lower lobe pulmonary nodule: 5 mm, subsolid seen on CT abdomen pelvis. Follow-up chest CT in 6 months recommended Please note the above document was generated using voice recognition software. It may contain grammatical, syntax or spelling errors. Any formal questions or concerns about the content, text or information contained within the body of this dictation should be directly addressed to the provider for clarification Total Time Total Time Spent Total Time Spent (In Minutes): 35 Total Time Includes: Examination of the Patient, Discharge Planning, Medication Reconciliation, Communication With Other Providers and Other Discharge Plan Discharge Items Patient Disposition: Home - Self-Care Reason For Visit: POSSIBLE MESENTERIC ISCHEMIA Discharge Diagnosis: Abdomen pain, possible gastroenteritis Activity: Resume your previous activity Non-emergency contact: Primary Care Provider Call non-emergency contact if: you have any medication questions and your symptoms worsen Follow-up/Referrals: Radha Chaudhry MD [Primary Care Provider] - (Date & Time 01/17/2024 11:00 AM Provider Radha Chaudhry MD Department General Internal Medicine [facility] ) Diet: Regular Addtl Attending Provider Instructions: You were admitted to the hospital due to abdominal pain, likely due to gastroenteritis. You are found to have UTI for which you are prescribed antibiotic to be taken for 3 more days. You are found to have left ovarian cyst/lesion. Please follow-up with with your primary care doctor and obtain ultrasound in 3 months to ensure the lesion is not growing. You are also found to have a pulmonary nodule of [address] abdomen pelvis. You will need CT chest in 6 months time to ensure the lesion is not growing. Pending Studies at Discharge: No Stand-Alone Forms: My Daily Pic, Smoking Cessation Medications and DC Order Prescriptions: New cefpodoxime 200 mg tablet 200 mg PO BID 3 Days Qty: 6 0RF Rx Instructions: must administer with a meal/food Continued levothyroxine [Synthroid] 75 mcg tablet 75 mcg PO QAM losartan 100 mg tablet 100 mg PO QAM ezetimibe 10 mg tablet 10 mg PO DAILY Multivitamin 50 Plus Tablet 1 tab PO DAILY carbidopa-levodopa 25-100 mg tablet 1 tab PO TID Discharge Orders: Discharge Order (Routine); Ordered 01/11/24 Ordered By: Ajith Lugo Admission Data Admit Date/Time: 01/09/24 19:05 Attending Provider: Ajith Lugo Admit Provider: Carmelo Mclaughlin Primary Care Provider: Radha Chaudhry Other Providers: Andres Pope; Carmelo Mclaughlin Other Interventions: Discharge Summary Assessment (RN) Last Done: 01/11/24 12:36
== END 2024-01-11 13:37 | disposition home or self-care (01) | DRG 394 ==
LOC: ED 13:57 → 2N 19:05 → INTOOBSV 19:05 → SUATTDRO 19:05 → 2N 21:33